=== PATIENT | male | born 1960 | race Caucasian/White ===

== ENCOUNTER 2021-09-28 14:18 | Inpatient (IN) ==
--- NOTE | 2021-09-24 16:04 | Anesthesiology Consultation ---
Date of Service September 24, 2021 Assessment & Plan (1) Encounter for pre-operative examination: Chart Review Chart Review: Acceptable Risk for Surgery (pending preop Covid testing and anesthesia evaluation DOS ) and Patient NOT seen in Pre Admission Testing -Discussed uncontrolled DM and a fib with Dr. Wilson- due to nature of procedure- pt can proceed as scheduled - Check BSG AM DOS Per nursing assessment 09/24/2021, patient resides in [facility]. Wears mask. Admits to local travel only. No known Covid positive exposures or Covid related symptoms. Pt tested Covid positive 07/24/21 at [place]. Pt is fully vaccinated for Covid. Preop Covid testing 09/24/21= results pending Patient seen by PCP 09/21/2021 = seen for preop appointment for upcoming surgery to have great right toe removed. Patient denies any anesthesia issues in the past. Can lie flat without any problems. PCP reviewed recent PRP. Preoperative examination: Stop Eliquis 3 days before surgery. Do not see any contraindications to surgery providing preoperative blood work and EKG are good. Last hemoglobin A1c was elevated at 10.6 but fasting blood sugars have improved since Basaglar has been increased and are now in the 130s. Patient is seeing endocrinology for his diabetes. Paroxysmal A. fibrhythm is regular today. (PCP reviewed labs from 09/08/21- only CBC repeated after PCP appt which was WNL- discussed with Dr. Wilson- pt can proceed as scheduled) Patient seen by cardiology 07/19/2021 = seen for ongoing cardiac issues. Patient diagnosed with atrial fibrillation with rapid ventricular response in July 2021. Patient also plans to have surgery on his great right toe. Has been started on beta-ayde and anticoagulation. Patient currently asymptomatic other than mild exertional fatigue. Continue current medications. We will evaluate further with lab testing and echocardiogram. No contraindications to low risk surgery as planned. No angina, CHF, valvular disease, or decline in functional capacity. Exercise capacity above 5 METS. (Pt still has not had ECHO done - will be following up with cardio in the future- discussed with Dr. Wilson- pt can proceed as scheduled) History Surgery Operation Date: 09/28/21 13:50 Proposed Procedures p Partial Amputation of the Right Big Toe (Fluoro) - Boris Mendosa MD Height/Weight Height: 5 ft 9 in Weight: 79.379 kg Allergies Allergy/AdvReac Type Severity Reaction Status Date / Time Penicillins Allergy Severe THROAT Verified 09/24/21 13:20 SWELLING WITH BLISTERS linezolid Allergy Unknown tongue Verified 09/24/21 13:21 swelling,ITCHY Medications Home Medications Medication Instructions Recorded Confirmed Last Taken empagliflozin 25 mg tablet 25 mg PO QAM 07/31/20 09/24/21 08/02/20 (Jardiance) metformin 500 mg tablet 1,000 mg PO BID 07/31/20 09/24/21 08/02/20 apixaban 5 mg tablet 5 mg PO BID 08/20/21 09/24/21 Unknown fluconazole 100 mg tablet 200 mg PO QAM tab 08/20/21 09/24/21 Unknown insulin glargine 100 unit/mL (3 28 unit SUBCUT QAM ml 08/20/21 09/24/21 Unknown mL) subcutaneous pen (Basaglar KwikPen U-100 Insulin) rosuvastatin 20 mg tablet 20 mg PO DAILY 08/20/21 09/24/21 Unknown daptomycin 500 mg intravenous 750 mg IV QAM 09/16/21 09/24/21 Unknown solution Past Medical History Medical History (Updated 09/24/21 @ 16:03 by Meredith Tillman PA-C) Acid reflux "MILD" Atrial fibrillation On Eliquis Charcot's joint of foot in type 2 diabetes mellitus Diabetes mellitus, type 2 Diabetic peripheral neuropathy associated with type 2 diabetes mellitus Hx of gout Hyperlipidemia Neuropathy RT LEG Osteomyelitis Currently receiving IV antibiotics at home Past Family History Family History Father Family history of diabetes mellitus Father Muscular dystrophy Other No family history of adverse response to anesthesia Past Surgical History Surgical History H/O knee surgery RT/LEFT History of appendectomy History of herniorrhaphy History of nasal cauterization History of tonsillectomy and adenoidectomy S/P foot surgery, right [place] teeth removed Social History Smoking Status: Never smoker tobacco type: smokeless tobacco Do You Dip or Chew Tobacco: Yes (1 CAN PER 2 DAYS) Hx Alcohol Use: No Hx Substance Use: No substance use type: does not use Lab Results Anesthesia Preop Results Results Anesthesia Widget: WBC 10.51 K/uL (4.8-10.8) 09/24/21 Hgb 13.2 g/dL (14.0-18.0) L 09/24/21 Hct 40.7 % (42-52) L 09/24/21 Plt 326 K/uL (130-400) 09/24/21 Na 133 mmol/L (136-145) L 09/08/21 K 4.5 mmol/L (3.5-5.1) 09/08/21 Cl 98 mmol/L (98-107) 09/08/21 CO2 23 mmol/L (21-32) 09/08/21 BUN 31 mg/dl (6-23) H 09/08/21 Creat 1.13 mg/dl (0.6-1.4) 09/08/21 Glucose Level 316 mg/dl (70-99(Fasting)) H* 09/08/21 HA1c 10.6 % (4.5-5.6) H 09/08/21 Testing Electrocardiogram Date: 08/15/21 Findings: + NSR @ (95bpm ) Normal EKG per cardio. Chest X-Ray Date: 08/18/21 1 view CXR Right-sided PICC line noted with the distal tip at the cavoatrial junction. Lung parenchyma is clear. No pneumothorax. No pleural effusion. Other Testing Lower arterial imaging 08/26/2021 = no evidence of significant lower extremity arterial occlusive disease bilaterally.
[~2021-09-28 14:18] MED LIST: ALLERGY Noted to ORDERED Medication SCH; LR 15ML/HR IV SCH
[2021-09-28] MEDS ORDERED: LIDOCAINE 2% 2 ML VIAL/AMP(20MG/ML) INFIL ONE (15:23)
[2021-09-28] MEDS ORDERED: fentaNYL citrate 100 MCG/2 ML VIAL ONE (15:23)
[2021-09-28] MEDS ORDERED: MIDAZOLAM HCL 1 MG/ML 2ML VIAL ONE (15:23)
[2021-09-28] MEDS ORDERED: PROPOFOL IV EMULSION 10 MG/ML 20 ML VIAL IV ONE (15:23)
[2021-09-28] MEDS ORDERED: fentaNYL citrate 100 MCG/2 ML VIAL IV PRN (15:34)
[2021-09-28] MEDS ORDERED: ATROPINE SULFATE 0.1 MG/ML 10ML SYR IV PRN (15:34)
[2021-09-28] MEDS ORDERED: ONDANSETRON INJ 2 MG/ML 2 ML VIAL IV PRN ×2 (15:34→19:19)
[2021-09-28] MEDS ORDERED: ePHEDrine sulfate 50 MG/ML AMP IV PRN (15:34)
[2021-09-28] MEDS ORDERED: ceFAZolin 2,000 MG/15 ML IV PUSH IV ONE (16:07)
--- NOTE | 2021-09-28 16:11 | History & Physical Bridge Note ---
Date of Service September 28, 2021 History & Physical Bridge Note I have examined the patient, reviewed the History & Physical and in the interval since the performance of the History & Physical I have noted the following changes of clinical significance: no changes noted
--- NOTE | 2021-09-28 18:04 | Operative Report ---
Post Operative Report Pre & Post Diagnosis Operation Date: 09/28/21 13:50 Pre-Op Diagnosis: Osteomyelitis unspecified Right Big Toe Post-Op Diagnosis: Osteomyelitis unspecified Right Big Toe I identified the patient and participated in the time-out.: Yes Procedure Operation Date: 09/28/21 13:50 Actual Procedures p Rigth Big Toe Partial Amputation(Right) - Boris Mendosa MD Surgeon Michael Mendosa MD Brush Maker Machine Ras Gabriel MD Estimated Blood Loss 10 Findings Consistent with Post-Op Diagnosis Consistent with post op diagnosis. Specimens No specimens. Description of Procedure I participated in prepping dressing and assisted Dr. Mendosa during the procedure. Please see Dr. Mendosa note. I attest to the content of the Intraoperative Record and any orders documented therein. Any exceptions are noted below. Supervising Physician Co-Signing Physician Notes Dr. Mendosa
--- NOTE | 2021-09-28 18:13 | Operative Report ---
Post Operative Report Pre & Post Diagnosis Operation Date: 09/28/21 13:50 Pre-Op Diagnosis: Osteomyelitis unspecified Right Big Toe Post-Op Diagnosis: Osteomyelitis unspecified Right Big Toe I identified the patient and participated in the time-out.: Yes Procedure Operation Date: 09/28/21 13:50 Actual Procedures p Rigth Big Toe Partial Amputation(Right) - Boris Mendosa MD Surgeon Boris Mendosa MD Geologic Technician Ras Gabriel MD Estimated Blood Loss 10 Findings Consistent with Post-Op Diagnosis Specimens Amputated right big toe Drains None Anesthesia Type General Regional Complications none Disposition Accompanied Patient To Recovery: No Disposition: Recovery Room Indications Trever is 61. He has poorly controlled diabetes. He has had a extensive saga over the last year beginning with the blister on the foot progressing to osteomyelitis of the season wide bones on the right big toe. This been complicated by dorsal dislocation of the toe a and persistent infection resulting in osteomyelitis of the first metatarsophalangeal joint and in particular the first metatarsal head. He has been on IV antibiotics. Inflammatory markers are elevated. He has an abnormal MRI and x-rays consistent with infection. I recommended partial amputation and he is agreed to proceed. Description of Procedure Informed consent obtained. Patient identified. He identified the operative site as the right big toe. I marked with my initials. Preoperative surgical timeout performed. Preop dose of IV antibiotics given. He was taken to the operating room positioned supine on the OR table with a bump under the right hip and a tourniquet on the right thigh. The leg was prescribed and then prepped and draped in usual sterile fashion. The toe was dorsally dislocated. There was a healed plantar wound with no drainage. This was located over the first metatarsophalangeal joint. DVT prophylaxis with mechanical devices. Postoperatively mobility and mechanical devices. He will be started back on his Eliquis. The limb was exsanguinated the Esmarch good bleeding at the midfoot and progressing up to the tourniquet.. Tourniquet inflated 250 mmHg. I made a longitudinal incision down the shaft of the first metatarsal medially and made a ellipsoid incision around the base of the big toe. The skin was sharply incised and then I bluntly dissected down to the level of the flexor and extensor tendons and elevated flaps plantarly and dorsally. Distally I dissected between the joint capsule and the subcutaneous tissues circumferentially. The fluoroscope was used to identify the proposed resection level which was just at the mid portion of the metatarsal. This was marked and exposed. The tendons were amputated at that level and allowed to retract. Nerves were cauterized and allowed to retract within the soft tissues as far proximal as possible as encountered. The bone was osteotomized at this midshaft area. Fluoroscopic guidance was utilized. It was beveled dorsal to plantar and medial to lateral. It was then smoothed with a rasp and rongeur. The remainder of the toe was then resected out of the soft tissue bed and sent for specimen. Tourniquet was let down and meticulous hemostasis was achieved. This was followed by copious irrigation with 1+ liters of sterile saline. On the back table prior to disposal of the toe the joint was opened and there was extensive soft bone of the metatarsal head. I took some bone from metatarsal head for culture and also took a swab culture of the metatarsal head and first metatarsal phalangeal joint. Thus there are 2 cultures 1 for bone and the other for swab culture. The toe was then submitted to specimen. After obtaining a meticulous hemostasis and irrigating we then trimmed the skin flaps as necessary to affect a tension-free button on redundant closure with 3-0 and 4-0 nylon. After this the skin was anesthetized with local anesthetic and then a bulky soft sterile dressing was applied Xeroform 4 x 4's ABD fluffs between the toes Inocencio wrap and a postop shoe. Patient waken from anesthesia without difficulty taken to recovery in stable condition. Specimens were as mentioned above and there were no complications. Counts were correct and blood loss was estimated to be 10 cc. At the conclusion the operation spoke patient's informed of my findings. Postop instructions were given. We will plan on starting his blood thinner tomorrow. Medicine consult. Pharmacy glycemic management consult. Partial weightbearing on the heel. We will continue the IV daptomycin via his PICC line. I think short course of postop IV antibiotics would be reasonable followed by a short course of oral antibiotics. The remainder of the wound bed looks well there is no purulence or abscess noted. There was extensive scarring plantar secondary to old surgery. The muscles were deteriorated and had a very pale salmon flash appearance and consistency. I attest to the content of the Intraoperative Record and any orders documented therein. Any exceptions are noted below.
--- NOTE | 2021-09-28 18:30 | Anesthesiology Progress Note ---
Date of Service September 28, 2021 Anesthesia Post Procedure Vital Signs Vital Signs: Temp Pulse Resp BP Pulse Ox 09/28/21 14:52 98.4 F 91 H 20 121/80 100 Transfer of Care Handoff Completed per policy Notes Mental Status: alert / awake / arousable and participated in evaluation Patient Amnestic to Procedure: Yes Nausea / Vomiting: adequately controlled Pain: adequately controlled Airway Patency, RR, SpO2: stable & adequate BP & HR: stable & adequate Hydration State: stable & adequate Anesthetic Complications: no major complications apparent and Pt Satisfied with anesthetic care
--- NOTE | 2021-09-28 19:15 | Fluoroscopy Report ---
FL toe RT 2V CLINICAL HISTORY: RT BIG TOE AMPUTATION TECHNIQUE: 1 views were obtained with the C-arm in the OR with the above procedure. Total fluoroscopy time was 6.7 seconds. Total skin dose was 0.17 mGy. Comparison: None available at the time of this dictation. FINDINGS/IMPRESSION: Intraoperative images were obtained of right great toe amputation. Please correlate with intraoperative fluoroscopy and operative report. ACT 112: Negative or not required by law. Electronically signed by: Vernon Hinds M.D. 09/28/2021 7:13 PM
[2021-09-28] MEDS ORDERED: TAMSULOSIN HCL 0.4 MG CAP PO PRN (19:19)
[2021-09-28] MEDS ORDERED: HYDROmorphone INJ 0.5 MG/0.5 ML SYR IV PRN (19:19)
[2021-09-28] MEDS ORDERED: NALOXONE HCL 0.4 MG/1 ML VIAL/CARP IV PRN (19:19)
[2021-09-28] MEDS ORDERED: MAGNESIUM HYDROXIDE SUSP 30 ML UDC PO PRN (19:19)
[2021-09-28] MEDS ORDERED: diphenhydrAMINE Capsule 25 MG CAP PO PRN (19:19)
[2021-09-28] MEDS ORDERED: ALUMINUM/MAGNESIUM SUSP 30 ML UDC PO PRN (19:19)
[2021-09-28] MEDS ORDERED: traMADol HCL 50 MG TABLET PO PRN (19:19)
[2021-09-28] MEDS ORDERED: bisacodyL 10 MG SUPP PR PRN (19:19)
[2021-09-28] MEDS ORDERED: PHARMACY GLYCEMIC MGMT CONSULT PRN (19:19)
[2021-09-28] MEDS ORDERED: oxyCODONE HCL IR 5 MG TAB (IMMEDIATE RELEASE) PO PRN (19:19)
[2021-09-28] MEDS ORDERED: METOCLOPRAMIDE HCL INJ 5 MG/ML 2 ML VIAL IV PRN (19:19)
[2021-09-28] MEDS: SODIUM CHLORIDE 0.9% 1000ML 1,000 ML IV SCH (19:34)
[2021-09-28] MEDS ORDERED: DAPTOmycin 425 MG in SYRINGE 0 ML IV SCH (20:00)
[2021-09-28] MEDS ORDERED: DEXTROSE 50% 50 ML SYRINGE IV PRN (20:30)
[2021-09-28] MEDS ORDERED: GLUCAGON FOR INJ 1 MG VIAL IM PRN (20:30)
[2021-09-28] MEDS ORDERED: CARBOHYDRATES FOR HYPOGLYCEMIA PO PRN (20:30)
[2021-09-28] MEDS ORDERED: GLUCOSE 10 TABS/TUBE PO PRN (20:30)
[2021-09-28] MEDS ORDERED: GLUCOSE 40% GEL 15 GM TUBE PO PRN (20:30)
[2021-09-28] MEDS: DOCUSATE SODIUM 100 MG CAP PO SCH (22:00)
[2021-09-28] MEDS: SENNA 8.6 MG TAB PO SCH (22:00)
[2021-09-28] MEDS: INSULIN ASPART PER UNIT SC SCH (22:16)
[2021-09-28] MEDS: ACETAMINOPHEN 500 MG TAB PO PRN (22:22)
--- NOTE | 2021-09-28 23:29 | Hospitalist Consultation ---
Date of Consultation September 28, 2021 Assessment & Plan (1) Osteomyelitis: This is a very pleasant 61-year-old gentleman with a notable history of type 2 diabetes complicated by peripheral neuropathy and Charcot's foot and diabetic retinopathy, hyperlipidemia, paroxysmal atrial fibrillation on apixaban who presented to [facility] for planned partial amputation of the right great toe because of osteomyelitis. This was performed 09/28/[address] Mendosa of [facility] Orth[facility]. Medicine was consulted for aid in medical management, including his atrial fibrillation monitoring, diabetes management, blood pressure management. # Osteomyelitis of R Great Toe s/p Partial Amputation on 09/28 - Orthopedic notes, including those scanned, reviewed; seems there has been progression of his disease despite ongoing ABX --> Patient developed rash with vancomycin - Culture: In note from [facility], reported that cultures taken in 07/2021 were revealing of Enterococcus and coagulase-negative Staph ; do not have sensitivities available in our system at this time --> Await cultures from procedure 09/28 - ABx: Continue daptomycin as per orthopedic service (for total of at least 6 weeks since initiation -- may require adjustment pending cultures above) - Pain: Tramadol, oxycodone, hydromorphone -- per orthopedic service - Lower extremity arterial CHADD/TBIs performed 08/2021 (see scan to chart) - revealing normalcy without evidence of significant occlusive disease (2) Diabetes: # Type 2 Diabetes Mellitus, Poorly Controlled - Home RX (HOLD): metformin 1000mg b.i.d., Jardiance 25mg PO qAM, insulin glargine 31U qAM - Last A1c: 10.6% in 09/2021 - Current SSI: 1:20, CR 1:7 w/ ACHS BSG checks -- agree for initial regimen based on most recent A1c - Initiate Lantus 20U qAM (patient takes ~30U qAM at home - will give 2/3, increase p.r.n.) - Goal range 110-140 - On night of initial visit, unable to have meaningful discussion about eating habits, medication compliance, etc. that might influence control of his diabetes and persistently high A1c (seen after midnight). Further clarification of this will be required throughout his stay here to ensure his continued success. Consider nurse research consultation pending further discussions during the day. - Monitor electrolytes with ongoing insulin therapy - Monitor for SXS of UTI with Jardiance (3) Mixed hyperlipidemia: # HLD - Continue rosuvastatin (4) Paroxysmal atrial fibrillation: # Paroxysmal AFib - Based on history, previous episodes of AFib seem to be precipitated by physiologically stressful events - e.g., sepsis - Patient is presently with regular rhythm and high-normal rates post- operatively on exam - ECG as needed or if persistently high rates - Patient self-discontinued metoprolol within the last few weeks (per his report). He would likely benefit from a low dose, such as succinate 25mg daily, if tolerated. Will require further exploration in AM. - Resume Apixaban when cleared by orthopedic surgery - Maintain K > 4, Mg > 2 (5) Essential hypertension: - Not on any antihypertensives at this time ; he self-discontinued only agent that may contribute, metoprolol - Following recovery from surgery, would consider addition of ACEI/ARB given his T2DM and risk for nephropathy Thank you for this consult. Will continue to follow. Supervising Physician Co-Signing Physician Notes Attending addendum: I have supervised the medical residents activities, and agree with the H&P unless as otherwise noted. Assessment and Plan: Osteomyelitis/status post right great toe partial amputation- Previous cultures with Enterococcus and coag negative staph Follow sensitivities from bone biopsy Continue daptomycin as per orthopedic service Pain control per orthopedic service Diabetes mellitus- Holding metformin, Jardiance and glargine 31 units Sliding scale insulin as noted Resume glargine at 20 units subcu every morning Remaining orders and notations as noted Will follow along during hospital stay History of Present Illness Attending Physician: Boris Mendosa MD History of Present Illness This is a 61-year-old gentleman with a notable history of type 2 diabetes complicated by peripheral neuropathy and Charcot's foot and diabetic retinopathy, hyperlipidemia, hyperlipidemia, atrial fibrillation on apixaban who presented to [facility] for planned partial amputation of the right great toe because of osteomyelitis. This was performed 09/28/[address] Mendosa of [facility] Orth[facility]. Medicine was consulted for aid in medical management, including his atrial fibrillation monitoring, diabetes management, blood pressure management. Patient's history and physical scans into the chart were reviewed. Also discussed with patient. Patient has an extensive history of [id number] diabetes. Last year (around November 2020), he did develop a R foot infection that transpired into sepsis that required hospitalization. During his hospitalization, he did develop A. fib. He has no history of A. fib prior to this. He was started on metoprolol and apixban. Unfortunately, recovery from his left foot infection was complicated by another episode of atrial fibrillation that required cardioversion. He also had reinfection that required hospitalization for sepsis in August 2020 at [facility]; he initially was on an oral antibiotic (which he does not remember) that caused his tongue to swell; he was then arranged with a PICC with vancomycin, but unfortunately developed itching with this. At present, he has been on IV daptomycin. The exact length of time has been since "August," but he is unable to tell me how many weeks -- he has still been on them through admission. MRI performed in early September demonstrated dislocation of the first metatarsal p halangeal joint with associated cellulitis, effusion, and findings consistent with osteomyelitis. Culture obtained in July 2021 was positive for Enterococcus and coagulase-negative staph. With his Orthopedist, jointly plan to pursue partial toe amputation. Allergies Allergy/AdvReac Type Severity Reaction Status Date / Time Penicillins Allergy Severe THROAT Verified 09/28/21 14:48 SWELLING WITH BLISTERS linezolid Allergy Unknown tongue Verified 09/28/21 14:48 swelling,ITCHY Home Medications Medication Instructions Recorded Confirmed Type empagliflozin 25 mg tablet 25 mg PO QAM 07/31/20 09/28/21 History (Jardiance) metformin 500 mg tablet 1,000 mg PO BID 07/31/20 09/28/21 History apixaban 5 mg tablet 5 mg PO BID 08/20/21 09/28/21 History fluconazole 100 mg tablet 200 mg PO QAM tab 08/20/21 09/28/21 History (Diflucan) insulin glargine 100 unit/mL (3 28 unit SUBCUT QAM ml 08/20/21 09/28/21 History mL) subcutaneous pen (Basaglar KwikPen U-100 Insulin) rosuvastatin 20 mg tablet 20 mg PO DAILY 08/20/21 09/28/21 History daptomycin 500 mg intravenous 750 mg IV QAM 09/16/21 09/28/21 History solution Patient History Medical History Acid reflux "MILD" Atrial fibrillation On Eliquis Charcot's joint of foot in type 2 diabetes mellitus Diabetes mellitus, type 2 Diabetic peripheral neuropathy associated with type 2 diabetes mellitus Hx of gout Hyperlipidemia Neuropathy RT LEG Osteomyelitis Currently receiving IV antibiotics at home Surgical History H/O knee surgery RT/LEFT History of appendectomy History of herniorrhaphy History of nasal cauterization History of tonsillectomy and adenoidectomy S/P foot surgery, right [place] teeth removed Family History Father Family history of diabetes mellitus Father Muscular dystrophy Other No family history of adverse response to anesthesia Social History Smoking Status: Never smoker Tobacco Type: Smokeless Tobacco (Dip or Chew) Age Started Using Tobacco: 12; Age Quit Using Tobacco: 47; Second Hand Exposure: No; Do You Dip or Chew Tobacco: Yes (1 CAN PER 2 DAYS); Tobacco Cessation Education Requested by Patient: No Hx Alcohol Use: No Hx Substance Use: No Preferred Language: Marshallese Communication Ability: Effective Visual Impairment: Limited Hearing Ability: Hard of Hearing Docking Pilot Required: No Beliefs That Will Affect Care: None marital status: Current Living Situation: Spouse Current Living Situation Comment: 2 story home with current occupational status: retired and disabled How many Children do You have: 3 How many Children do You have Comment: works, able to assist a little. Pt independent with care at this time. Other Information That Helps Us Care for You: No Feels Safe at Home: Yes Safety Concerns: Feels Safe At This Time during the past year weight has: remained stable Assistive Devices: Special Shoe Assistive Devices Comment: WRAPPED DRESSING/BOOT RIGHT FOOT Review of Systems Review of Systems: as per HPI Physical Exam Physical Exam: General: Well appearing 61-year old M who is alert, oriented, and appears in no acute distress. HEENT: NCAT. - Eyes - Sclera are white, anicteric, and without injection. - Mouth - MMM with no tonsillar edema or exudates. - Neck - supple without JVD. Cardiac: High-normal rate with regular rhythm; S1 and S2 present with no murmurs, rubs, or gallops. Pulmonary: Good respiratory effort with symmetric expansion of the chest. No use of accessory muscles. Lungs were clear to auscultation bilaterally with no crackles or wheezes. Abdominal: Normoactive bowel sounds. Abdomen was soft, nondistended, and non- tender to palpation. Extremities: Upper and lower extremities are warm and well perfused. RLE is wrapped and in a post-operative boot. The dressing is c/d/i. Patient demonstrates good motor function of the toes on this side. Results & Data Results & Data ([facility]) Vital Signs (Past 12 Hours) Vital Signs Temp Pulse Pulse Resp BP Pulse Ox 09/28/21 22:10 36.4 C L 104 H 18 145/83 H 97 09/28/21 21:08 36.4 C L 103 H 18 156/87 H 98 09/28/21 20:05 36.3 C L 103 H 20 168/90 H 99 09/28/21 19:35 36.7 C 95 H 18 147/88 H 99 09/28/21 18:45 36.5 C 87 20 129/70 97 09/28/21 18:35 87 14 125/73 97 09/28/21 18:25 86 14 125/77 97 09/28/21 18:15 90 12 128/79 96 09/28/21 18:05 36.9 C 87 14 120/73 97 09/28/21 14:52 36.9 C 91 H 20 121/80 100 Resident Activity Tracking Resident Involvement: Resident Care Provided Care Provided: Adult Hospital Medicine
[2021-09-29] MEDS: INSULIN ASPART PER UNIT SC SCH ×7 (01:34→21:14)
[2021-09-29] MEDS: SODIUM CHLORIDE 0.9% 1000ML 1,000 ML IV SCH (06:14)
[2021-09-29 06:48] LABS: BUN Creatinine Ratio 25.3 (10-20); Calcium 9.3 mg/dl (8.5-10.1); Creatinine Clr Calc Pharmacy 81.7 ml/min; Est GFR (African American) 99.7 ml/min; Est GFR (Non-African American) 86.1 ml/min; Magnesium 2.1 mg/dl (1.7-2.4); Potassium 4.1 mmol/L (3.5-5.1)
[2021-09-29] MEDS: FLUCONAZOLE 100 MG TAB PO SCH (08:03)
[2021-09-29] MEDS: MULTIVITAMIN TAB PO SCH (08:03)
[2021-09-29] MEDS: DOCUSATE SODIUM 100 MG CAP PO SCH ×2 (08:03→20:37)
[2021-09-29 08:15] LABS: Hematocrit (blood only) 37.3 % (42-52); Hemoglobin 12.2 g/dL (14.0-18.0); Mean Corpuscular Hemoglobin 26.7 pg (25-34); Mean Corpuscular Hgb Conc 32.7 g/dL (32-36); Mean Corpuscular Volume 81.6 fL (80-100); Mean Platelet Volume 10.6 fL (7.4-10.4); Platelet Count 277 K/uL (130-400); RDW Coefficient of Variation 15.4 % (11.5-14.5); RDW Standard Deviation 45.4 fL (36.4-46.3); Red Blood Count 4.57 M/uL (4.7-6.1); White Blood Count 9.76 K/uL (4.8-10.8)
[2021-09-29] MEDS ORDERED: ROSUVASTATIN CALCIUM 20 MG TAB PO SCH (09:00)
[2021-09-29] MEDS ORDERED: INSULIN GLARGINE SOLOSTAR 100 UNITS/ML 3 ML PEN SC SCH (09:00)
[2021-09-29] MEDS ORDERED: DAPTOmycin 500 MG VIAL IV SCH (09:00)
[2021-09-29] MEDS: DAPTOmycin 700 MG in SYRINGE 0 ML IV SCH (10:34)
--- NOTE | 2021-09-29 12:33 | Hospitalist Progress Note ---
Date of Service September 29, 2021 Assessment & Plan (1) Amputation of great toe: Plan: S/p amputation of the right hallux done 09/28 (Dr. Mendosa) for progressive osteomyelitis failing IV antibiotics No perioperative complications Recommend DVT prophylaxis, adequate postoperative pain management, PT/OT and weightbearing restrictions at discretion of primary team -- Patient takes Eliquis routinely. Once okay to resume per surgery, this would provide adequate DVT prophylaxis (2) Osteomyelitis: Plan: Ongoing osteomyelitis of the right great toe Completed 14 days of linezolid followed by IV antibiotics (first vancomycin then later transitioned to IV daptomycin) Prior wound culture showed Enterobacter, heavy growth of yeast, and coag negative staph species Has been following infectious disease as an outpatient. PICC line in place Discussed with Dr. Burris and all infected toe has been amputated. No joint space or tendon involvement seen on MRI At this point, no need for continued IV antibiotics. Can transition to oral. Would advise 2 weeks of treatment (to conclude 10/13) For now, continue empiric antibiotic therapy until culture data available. Prior culture data from 08/24. Bone sample sent for analysis and pending Continue daptomycin. Add cefepime given his underlying history of diabetes mellitus and risk for pseudomonal infection Add Diflucan given recent history of heavy growth of yeast and wound culture If bone culture comes back showing no growth, would advise treating based on prior culture data (for Enterobacter, coag negative staph and yeast). Appropriate treatment would be linezolid and Diflucan (3) Paroxysmal atrial fibrillation: Plan: Currently examines in a sinus rhythm Was on metoprolol in the past but self discontinued as "did not need it" Lengthy discussion with patient and risk of paroxysmal atrial fibrillation. Heart rate currently 91 and blood pressure elevated. Would benefit from addition of beta-blockade. After lengthy discussion, patient agreeable We will start metoprolol XL 25 mg daily--would continue upon discharge Resume Eliquis once stable to do so from surgical perspective (4) Diabetes: Plan: Last A1c elevated at 10.6 (done 09/08/2021) Currently on Lantus/logpharmacy managing. Appreciate assistance Lengthy discussion with patient regarding the importance of good glycemic control (5) Essential hypertension: Plan: Was on lisinopril in the past but self discontinued this medication. BP currently accelerated at 150s/90s As stated above, also self discontinued metoprolol. Would benefit from beta- blockade at this point thus metoprolol initiated Patient very reluctant to addition of any added antihypertensive agents but would benefit from lisinopril for nephro protection. Can discuss this with PCP Plan: For now, continue empiric antibiotics (cefepime, daptomycin) along with antifungals (Diflucan) based on prior culture data Bone culture pending Patient will need 2 weeks of oral antibiotics. If culture data negative, linezolid and oral Diflucan would be appropriate (last EKG shows normal prolonged QT interval) We will continue to follow along with this patient. Discussion will be had with attending provider. Did discuss with primary team. Thank you for allowing us to participate in this patient's care. Admission and Anticipated Discharge Date Admission Date: September 28, 2021 Subjective Patient seen on daily rounds today. Vocalizes no complaints or concerns. Denies fevers, chills, chest pain, shortness of breath, abdominal pain, nausea or vomiting. His only request today is additional boost supplement with meals as he was told "he needs additional protein to help his wound heal". Patient is a 61-year-old white male with type II DM who sustained amputation of the right great toe on 09/28 for osteomyelitis Hospitalized 07/27 at [facility] for osteomyelitis. MRI then showing early osteomyelitis of the hallux and sesamoid bones without tendon involvement. Seen by podiatry and had sesamoidectomy. Wound culture showed Enterobacter, heavy growth of yeast and coag negative staph. Seen by ID and recommendations were for linezolid orally X 14 days. Subsequently discharged home but has had recurrent cellulitis and poor wound healing. 08/24 readmitted where he was found to have progressive osteomyelitis now involving the first proximal phalanx and first metatarsal. Culture at that time showed Enterococcus, heavy yeast, and coag negative staph species. Seen by infectious disease and completed oral Diflucan, with plan to continue IV vancomycin X 6 weeks. Has been following up with our wound clinic for nonhealing wound. In the interim, vancomycin was transitioned to daptomycin as instructed by [facility] (which patient was following as an outpatient). Had repeat MRI on 09/09 showing progressive osteo for which patient was referred to orthopedics for amputation. Is s/p amputation of right hallux done 09/28. No intraoperative/perioperative complications. Per orthopedics (directly spoke to Dr. Mendosa) and all infected bone has since been removed Review of Systems Review of Systems: All systems reviewed and are unremarkable except as noted in HPI and below Denies fevers, chills, headache, nasal congestion, sore throat, cough, chest pain, shortness of breath, palpitations, orthopnea, PND, abdominal pain, nausea, vomiting, diarrhea, constipation, dysuria, hematuria, frequency, back pain, join t pain or swelling, easy bruising or bleeding, skin lesions or rashes. Physical Exam Physical Exam: General: Resting comfortably in his hospital bed. NAD. HEENT: Head is AT/NC. Buccal mucosa is moist and pink Neck: No JVD. Negative hepatojugular reflex Cardiac: RRR without M/G/R Lungs: CTA without W/R/R Abdomen: Normoactive X4. Soft and nontender in all quadrants. Extremities: Right lower extremity in a postsurgical boot. Capillary refill to toes intact. Able to palpate dorsalis pedis pulse and is bounding Neuro: A&O X4. Cranial nerves II through XII are grossly intact. No focal neuro deficits Skin: No obvious skin lesions or rashes Psych: Appropriate affect. Pleasant and cooperative Results & Data Results & Data ([facility]) Vital Signs (Past 12 Hours) Vital Signs Temp Pulse Resp BP Pulse Ox 09/29/21 10:42 36.6 C 91 H 16 151/82 H 97 09/29/21 07:05 36.5 C 91 H 16 146/75 H 98 09/29/21 02:11 36.6 C 90 16 102/63 97 Laboratory Results 09/29/21 05:34 09/29/21 05:34 PG Care Time/CCT Total # of Minutes Spent Total Time Spent with Patient: Total time spent is greater than 50% in coordination of care (as documented) at patient's floor/unit and/or counseling patient: Coding Level of Care Code 36127 Inpt Consult Level 5 Diagnoses Amputation of great toe S98.119A Osteomyelitis M86.9 Paroxysmal atrial fibrillation I48.0 Diabetes E11.9 Essential hypertension I10
[2021-09-29] MEDS ORDERED: FLUCONAZOLE 100 MG TAB PO SCH (12:45)
[2021-09-29] MEDS: CEFEPIME 2,000 MG in SYRINGE 0 ML IV SCH ×2 (13:31→22:16)
--- NOTE | 2021-09-29 13:48 | Orthopedic Progress Note ---
Date of Service September 29, 2021 Assessment & Plan (1) Amputation of great toe: Plan: Keep the dressing and the post OP shoe clean, dry and in place. elevate the leg. Continue broad spectrum antibiotic until the culture results will be ready. Dilaudid PRN for pain control. Discharge possible tomorrow. Admission and Anticipated Discharge Date Admission Date: September 28, 2021 Subjective POD 1: Patient feels fine, pain is under control. He is keeping the leg elevated with two pillows. Physical Exam Musculoskeletal: Right foot: Dressing in place, clean and dry, diffuse numbness in all toes comparable with the pre OP sensation. Strength 5/5. Results & Data ([facility]) Vital Signs (Past 12 Hours) Vital Signs Temp Pulse Resp BP Pulse Ox 09/29/21 10:42 36.6 C 91 H 16 151/82 H 97 09/29/21 07:05 36.5 C 91 H 16 146/75 H 98 09/29/21 02:11 36.6 C 90 16 102/63 97 Laboratory Results 09/29/21 09/29/21 09/29/21 12:43 11:48 07:44 WBC RBC Hgb Hct MCV MCH MCHC RDW Std Deviation RDW Coeff of Adriana Plt Count MPV ESR 31 H Sodium Potassium Chloride Carbon Dioxide Anion Gap BUN Creatinine Est Cr Clr Drug Dosing Est GFR ( Amer) Est GFR (Non-Af Amer) BUN/Creatinine Ratio Glucose POC Glucose 232 H 163 H Calcium Magnesium SARS-CoV-2, RNA, NAAT 09/29/21 09/29/21 09/29/21 05:34 05:34 03:45 WBC 9.76 RBC 4.57 L Hgb 12.2 L Hct 37.3 L MCV 81.6 MCH 26.7 MCHC 32.7 RDW Std Deviation 45.4 RDW Coeff of Adriana 15.4 H Plt Count 277 MPV 10.6 H ESR Sodium 137 Potassium 4.1 Chloride 104 Carbon Dioxide 23 Anion Gap 10 BUN 24 H Creatinine 0.95 Est Cr Clr Drug Dosing 81.7 Est GFR ( Amer) 99.7 Est GFR (Non-Af Amer) 86.1 BUN/Creatinine Ratio 25.3 H Glucose 130 H POC Glucose 172 H Calcium 9.3 Magnesium 2.1 SARS-CoV-2, RNA, NAAT 09/29/21 09/28/21 09/28/21 01:28 22:07 22:04 WBC RBC Hgb Hct MCV MCH MCHC RDW Std Deviation RDW Coeff of Adriana Plt Count MPV ESR Sodium Potassium Chloride Carbon Dioxide Anion Gap BUN Creatinine Est Cr Clr Drug Dosing Est GFR ( Amer) Est GFR (Non-Af Amer) BUN/Creatinine Ratio Glucose POC Glucose 230 H 341 H* 329 H* Calcium Magnesium SARS-CoV-2, RNA, NAAT 09/28/21 09/28/21 09/28/21 18:09 14:43 14:35 WBC RBC Hgb Hct MCV MCH MCHC RDW Std Deviation RDW Coeff of Adriana Plt Count MPV ESR Sodium Potassium Chloride Carbon Dioxide Anion Gap BUN Creatinine Est Cr Clr Drug Dosing Est GFR ( Amer) Est GFR (Non-Af Amer) BUN/Creatinine Ratio Glucose POC Glucose 168 H 209 H Calcium Magnesium SARS-CoV-2, RNA, NAAT NEGATIVE
--- NOTE | 2021-09-29 14:31 | Pharmacy Report ---
Pharmacy Glycemic Short Note 2 - Date of Service September 29, 2021 - Glycemic Short BSG Results (Last 24 hours): 09/28/21 09/28/21 09/28/21 14:43 18:09 22:04 Glucose POC Glucose 209 H 168 H 329 H* 09/28/21 09/29/21 09/29/21 22:07 01:28 03:45 Glucose POC Glucose 341 H* 230 H 172 H 09/29/21 09/29/21 09/29/21 05:34 07:44 11:48 Glucose 130 H POC Glucose 163 H 232 H OUTPATIENT ANTIDIABETIC REGIMEN: * Lantus 28 units daily * Jardiance * metformin ASSESSMENT: * Mr Phipps is a 61 y/o M with a PMH of T2DM who presents for toe amputation. * BSGs yesterday were 168-341 and overnight were 172 - 163 mg/dL. * Patient took 14 units of Lantus prior to surgery. He received an additional 7 units overnight. * Will start with Lantus 20 units today then have titration available for tomorrow. * Novolog weight-based stress of 3. Lunch BSG was elevated so tighten CR significantly. PLAN FOR INPATIENT GLYCEMIC CONTROL: * Hold outpatient oral diabetes medications * Basal insulin * Lantus 20 units SQ daily (25 units if BSG > 140 mg/dL) * Bolus insulin * NovoLog per scale ACHS or Q6hrs while NPO * Goal Range: Low 110 mg/dL - High 140 mg/dL * Correction Factor: 20 mg/dL/unit * Nutritional / Prandial insulin per carb ratio of 1 unit per 5 grams CHO consumed
[2021-09-29] MEDS: ACETAMINOPHEN 500 MG TAB PO PRN (16:20)
[2021-09-29] MEDS: METOPROLOL SUCC 25MG EXT REL TAB PO SCH (16:21)
[2021-09-29] MEDS: APIXABAN 5 MG TABLET PO SCH (18:05)
--- NOTE | 2021-09-29 18:59 | Progress Notes ---
DATE OF SERVICE: 09/29/2021. No problems reported. Pain is well controlled. The patient is resting comfortably in bed. He is af ebrile. His vital signs are stable. His labs are noted. White count 10, hemoglobin 12, hematocrit 3 7, platelets are 277. Sed rate 31. CRP 0.71. Path pending. Cultures no growth to date. Dressing clean, dry and intact. Capillary refill intact with the remaining toes and he can wiggle them. He i s currently on daptomycin, cefepime and Diflucan. We will start his Eliquis tonight. We will consid er dressing change tomorrow. We will continue IV antibiotics until we get some culture results. Disc ussed treatment plan with medicine via [employer]. Job ID: [id number]
[2021-09-29] MEDS: SENNA 8.6 MG TAB PO SCH (20:37)
--- NOTE | 2021-09-29 21:36 | Billing Data ---
Date of Service September 29, 2021 Coding Level of Care Code 62732 Inpt Consult Level 3
[2021-09-30] MEDS: CEFEPIME 2,000 MG in SYRINGE 0 ML IV SCH ×3 (05:46→21:53)
[2021-09-30 06:15] LABS: Basophils # (auto) 0.04 K/uL (0-0.2); Basophils % (auto) 0.5 %; Eosinophils # (auto) 0.14 K/uL (0-0.5); Eosinophils % (auto) 1.7 %; Hematocrit (blood only) 36.7 % (42-52); Hemoglobin 12.2 g/dL (14.0-18.0); Immature Granulocytes # (auto) 0.01 K/uL (0.00-0.02); Immature Granulocytes % (auto) 0.1 %; Lymphocytes # (auto) 1.92 K/uL (1.2-3.4); Lymphocytes % (auto) 23.2 %; Mean Corpuscular Hemoglobin 27.1 pg (25-34); Mean Corpuscular Hgb Conc 33.2 g/dL (32-36); Mean Corpuscular Volume 81.4 fL (80-100); Mean Platelet Volume 10.8 fL (7.4-10.4); Monocytes # (auto) 0.79 K/uL (0.11-0.59); Monocytes % (auto) 9.6 %; Neutrophils # (auto) 5.37 K/uL (1.4-6.5); Neutrophils % (auto) 64.9 %; Platelet Count 263 K/uL (130-400); RDW Coefficient of Variation 15.3 % (11.5-14.5); RDW Standard Deviation 45.2 fL (36.4-46.3); Red Blood Count 4.51 M/uL (4.7-6.1); White Blood Count 8.27 K/uL (4.8-10.8)
[2021-09-30 06:49] LABS: BUN Creatinine Ratio 24.2 (10-20); Calcium 9.3 mg/dl (8.5-10.1); Creatinine Clr Calc Pharmacy 81.7 ml/min; Est GFR (African American) 99.7 ml/min; Est GFR (Non-African American) 86.1 ml/min; Magnesium 2.1 mg/dl (1.7-2.4); Potassium 4.1 mmol/L (3.5-5.1)
[2021-09-30] MEDS: FLUCONAZOLE 100 MG TAB PO SCH (07:50)
[2021-09-30] MEDS: METOPROLOL SUCC 25MG EXT REL TAB PO SCH (07:50)
[2021-09-30] MEDS: APIXABAN 5 MG TABLET PO SCH ×2 (07:50→21:00)
[2021-09-30] MEDS: MULTIVITAMIN TAB PO SCH (07:51)
[2021-09-30] MEDS: DOCUSATE SODIUM 100 MG CAP PO SCH ×2 (07:51→21:00)
[2021-09-30] MEDS: INSULIN ASPART PER UNIT SC SCH ×4 (08:53→21:01)
[2021-09-30] MEDS: INSULIN GLARGINE SOLOSTAR 100 UNITS/ML 3 ML PEN SC SCH (08:55)
[2021-09-30] MEDS: DAPTOmycin 700 MG in SYRINGE 0 ML IV SCH (08:55)
--- NOTE | 2021-09-30 12:39 | Pharmacy Report ---
Pharmacy Glycemic Short Note 2 - Date of Service September 30, 2021 - Glycemic Short BSG Results (Last 24 hours): 09/29/21 09/29/21 09/30/21 16:46 20:54 05:10 Glucose 208 H POC Glucose 174 H 259 H 09/30/21 09/30/21 08:02 12:03 Glucose POC Glucose 235 H 226 H OUTPATIENT ANTIDIABETIC REGIMEN: * Lantus 28 units daily * Jardiance * metformin ASSESSMENT: 09/30/21: * Andre received 72 units of insulin yesterday with poor glycemic control * 20 units Lantus, 52 units Novolog * BSGs: 130, 163, 232, 174, 259 mg/dL * Patient tolerates 28 units of basal insulin at home. I will resume this dose this morning and add a small scale at bedtime until fasting BSG is better controlled. * Post prandial BSGs remain elevated despite tightening carb coverage- will further tighten today. I suspect basal deficiency is playing a role in this elevation. 09/29/21: * Mr Phipps is a 61 y/o M with a PMH of T2DM who presents for toe amputation. * BSGs yesterday were 168-341 and overnight were 172 - 163 mg/dL. * Patient took 14 units of Lantus prior to surgery. He received an additional 7 units overnight. * Will start with Lantus 20 units today then have titration available for tomorrow. * Novolog weight-based stress of 3. Lunch BSG was elevated so tighten CR significantly. PLAN FOR INPATIENT GLYCEMIC CONTROL: * Hold outpatient oral diabetes medications * Basal insulin * Lantus 28 units SQ qAM * Lantus 0-5 units SQ tonight (5 units for BSG 160 mg/dL or more) * Bolus insulin * NovoLog per scale ACHS or Q6hrs while NPO * Goal Range: Low 110 mg/dL - High 140 mg/dL * Correction Factor: 15 mg/dL/unit * Nutritional / Prandial insulin per carb ratio of 1 unit per 4 grams CHO consumed
--- NOTE | 2021-09-30 15:57 | Hospitalist Progress Note ---
Date of Service September 30, 2021 Assessment & Plan (1) Osteomyelitis: Plan: S/p amputation of the right hallux done 09/28 (Dr. Mendosa) for progressive osteomyelitis failing IV antibiotics No perioperative complications Recommend DVT prophylaxis, adequate postoperative pain management, PT/OT and weightbearing restrictions at discretion of primary team * Patient takes Eliquis routinely. Once okay to resume per surgery, this would provide adequate DVT prophylaxis, appears ortho said acceptable to resume on 09/29 Completed 14 days of linezolid followed by IV antibiotics (first vancomycin then later transitioned to IV daptomycin) Prior wound culture showed Enterobacter, heavy growth of yeast, and coag negative staph species Has been following infectious disease as an outpatient. PICC line in place Discussed with Dr. Burris and all infected toe has been amputated. No joint space or tendon involvement seen on MRI At this point, no need for continued IV antibiotics. Can transition to oral. Would advise 2 weeks of treatment (to conclude 10/13) For now, continue empiric antibiotic therapy until culture data available. Prior culture data from 08/24. Bone sample sent for analysis and pending Continue daptomycin. Add cefepime given his underlying history of diabetes mellitus and risk for pseudomonal infection Add Diflucan given recent history of heavy growth of yeast and wound culture If bone culture comes back showing no growth, would advise treating based on prior culture data (for Enterobacter, coag negative staph and yeast). At this time, NGTD, but pinpoint growth noted and is reincubating.Appropriate treatment would be oral linezolid and Diflucan (2) Paroxysmal atrial fibrillation: Plan: Currently examines in a sinus rhythm Was on metoprolol in the past but self discontinued as "did not need it" Lengthy discussion with patient and risk of paroxysmal atrial fibrillation. Heart rate currently 91 and blood pressure elevated. Would benefit from addition of beta-blockade. After lengthy discussion, patient agreeable Resumed Eliquis on 09/29 Started on metoprolol XL 25 mg daily (tolerating well) - would continue upon discharge (3) Diabetes: Plan: Home RX (HOLD): metformin 1000mg b.i.d., Jardiance 25mg PO qAM, insulin glargine 31U qAM Last A1c elevated at 10.6 (done 09/08/2021) Currently on Lantus/logpharmacy managing. Appreciate assistance Lengthy discussion with patient regarding the importance of good glycemic control (4) Essential hypertension: Plan: Was on lisinopril in the past but self discontinued this medication. BP currently accelerated at 150s/90s As stated above, also self discontinued metoprolol. Would benefit from beta- blockade at this point thus metoprolol initiated Patient very reluctant to addition of any added antihypertensive agents but would benefit from lisinopril for nephro protection. Can discuss this with PCP (5) Mixed hyperlipidemia: Plan: Continue rosuvastatin Plan: No further recommendations at this time other than as outlined above. Will continue to follow along while hospitalized. Plan to be d/w Dr. Dunaway. Admission and Anticipated Discharge Date Admission Date: September 28, 2021 Subjective Patient was seen on rounds this morning. He is resting comfortably in bed, offers no new complaints/concerns. Pain is adequately controlled. Denies cp, palpitations, dyspnea, n/v/d, f/c, headache, or gu symptoms. Review of Systems Review of Systems: All systems reviewed and are unremarkable except as noted in HPI and below Denies fevers, chills, headache, nasal congestion, sore throat, cough, chest pain, shortness of breath, palpitations, orthopnea, PND, abdominal pain, nausea, vomiting, diarrhea, constipation, dysuria, hematuria, frequency, back pain, joint pain or swelling, easy bruising or bleeding, skin lesions or rashes. Physical Exam Physical Exam: GENERAL: 61 yo well-developed, well-nourished WM. NAD. LUNGS: Clear to auscultation bilaterally. No accessory muscle use. No W/R/R. CARDIOVASCULAR: Regular rate and rhythm. ABDOMEN: Soft, non-tender and non-distended. BS normoactive x 4 quad. EXTREMITIES: RLE Surgical dressing present, wrapped in josé miguel. Cap refill in toes <2 sec. DP pulse +2/4 NEUROLOGIC: A&O x3. PSYCHIATRIC: Cooperative. Appropriate mood and affect. SKIN: Warm, dry, intact. No rashes or lesions. Results & Data Results & Data ([facility]) Vital Signs (Past 12 Hours) Vital Signs Temp Pulse Resp BP Pulse Ox 09/30/21 14:08 36.6 C 88 16 141/80 H 97 04/28/22 07:53 36.7 C 85 16 134/84 97 Laboratory Results 09/30/21 05:10 09/30/21 05:10 PG Care Time/CCT Total # of Minutes Spent Total Time Spent with Patient: Total time spent is greater than 50% in coordination of care (as documented) at patient's floor/unit and/or counseling patient: Coding Level of Care Code 89686 Subseq Hosp Care Lvl 2 Diagnoses Osteomyelitis M86.9 Diabetes E11.9 Mixed hyperlipidemia E78.2 Paroxysmal atrial fibrillation I48.0 Essential hypertension I10
[2021-09-30] MEDS: ACETAMINOPHEN 500 MG TAB PO PRN (16:31)
--- NOTE | 2021-09-30 16:44 | Orthopedic Progress Note ---
Date of Service September 30, 2021 Assessment & Plan Admission and Anticipated Discharge Date Admission Date: September 28, 2021 Subjective Results & Data ([facility]) Vital Signs (Past 12 Hours) Vital Signs Temp Pulse Resp BP Pulse Ox 09/30/21 14:08 36.6 C 88 16 141/80 H 97 09/30/21 07:53 36.7 C 85 16 134/84 97
--- NOTE | 2021-09-30 16:54 | Progress Notes ---
DATE OF SERVICE: 09/30/2021 Resting comfortably in bed. Afebrile, vital signs are stable. Cultures, no growth to date. One is pinpoint, reincubating. Wound is benign. No hematoma. Some eschar, but otherwise well perfused, he althy skin without any active drainage or erythema. Plan is to discharge him home today. Discontinue the PICC line. Follow up on Monday. Discharge on Diflucan and a suitable oral antibiotic. Initially, we thought Zyvox, but it is listed as an allergy . We will coordinate with medicine. Discussed appropriate care of his diabetes as well as elevation and offloading. Job ID: [id number]
[2021-09-30] MEDS ORDERED: INSULIN GLARGINE SOLOSTAR 100 UNITS/ML 3 ML PEN SC SCH (21:00)
[2021-09-30] MEDS: SENNA 8.6 MG TAB PO SCH (21:00)
[2021-10-01] MEDS: ACETAMINOPHEN 500 MG TAB PO PRN ×2 (00:58→15:21)
[2021-10-01] MEDS: CEFEPIME 2,000 MG in SYRINGE 0 ML IV SCH ×2 (05:49→13:49)
[2021-10-01] MEDS: FLUCONAZOLE 100 MG TAB PO SCH (08:56)
[2021-10-01] MEDS: DOCUSATE SODIUM 100 MG CAP PO SCH (08:56)
[2021-10-01] MEDS: MULTIVITAMIN TAB PO SCH (08:57)
[2021-10-01] MEDS: APIXABAN 5 MG TABLET PO SCH (08:57)
[2021-10-01] MEDS: METOPROLOL SUCC 25MG EXT REL TAB PO SCH (08:58)
[2021-10-01] MEDS: INSULIN GLARGINE SOLOSTAR 100 UNITS/ML 3 ML PEN SC SCH (08:58)
[2021-10-01] MEDS: INSULIN ASPART PER UNIT SC SCH ×3 (09:09→17:46)
[2021-10-01] MEDS: DAPTOmycin 700 MG in SYRINGE 0 ML IV SCH (09:10)
--- NOTE | 2021-10-01 09:35 | Orthopedic Progress Note ---
Date of Service October 01, 2021 Assessment & Plan (1) Amputation of great toe: Plan: Keep the dressing and the post OP shoe clean, dry and in place. elevate the leg. To the charge nurse. She is not sure what time the patient is going to have his ID consult. She states that she will send me a [place] text after is complete. I advised the patient that once he has the consult visit and the antibiotic is determined we will provide him with a prescription for it and hopefully discharge him sometime later today. All of this information was relayed to Dr. Mendosa. Admission and Anticipated Discharge Date Admission Date: September 28, 2021 Subjective This 61-year-old male seen for follow-up of a partial right great toe amputation. Patient states that last night his boot got caught up and something in was removed and pulled the dressing off. He states that the nurses tried to redress it but he would like me to apply a new dressing today. He states he really has no pain. He states that he is yet to do a telehealth visit with infectious disease to discuss antibiotic treatment so he can be discharged to home. He hopes that he does not have to stay throughout the weekend. Review of Systems Review of Systems: All systems reviewed & are unremarkable except as noted in Subjective Physical Exam Physical Exam: Right foot: Patient's dressing was essentially removed. The Xeroform was still left in place. I did lift it and visualize the sutures were intact. There is no drainage. There was mild erythema and edema but no ecchymosis. I reapplied the Xeroform. I placed a nonstick Telfa pad over this. I put some sterile gauze 4 x 4's in between his remaining digits. I placed a ABD pad over the dorsum of the foot and lightly wrapped it with Curlex and then reapplied his Inocencio bandages and the postoperative shoe. Patient states that this was much more comfortable than the when the nurse tried to apply earlier this morning. He is able to perform an active straight leg raise test. He is able to actively dorsi and plantarflex his foot. He has a numb sensation to palpation over digits 2 through 5. His calf is soft and supple nontender to palpation. He is neurovascularly intact in the right lower extremity. Results & Data ([facility]) Vital Signs (Past 12 Hours) Vital Signs Temp Pulse Resp BP Pulse Ox 10/01/21 07:22 36.4 C L 85 16 154/79 H 98 09/30/21 22:35 36.7 C 94 H 16 106/69 96 Diagnostic Findings Laboratory Results WBC 8.27 K/uL (4.8-10.8) 09/30/21 05:10 RBC 4.51 M/uL (4.7-6.1) L 09/30/21 05:10 Hgb 12.2 g/dL (14.0-18.0) L 09/30/21 05:10 Hct 36.7 % (42-52) L 09/30/21 05:10 MCV 81.4 fL (80-100) 09/30/21 05:10 MCH 27.1 pg (25-34) 09/30/21 05:10 MCHC 33.2 g/dL (32-36) 09/30/21 05:10 RDW Std Deviation 45.2 fL (36.4-46.3) 09/30/21 05:10 RDW Coeff of Adriana 15.3 % (11.5-14.5) H 09/30/21 05:10 Plt Count 263 K/uL (130-400) 09/30/21 05:10 MPV 10.8 fL (7.4-10.4) H 09/30/21 05:10 Immature Gran % (Auto) 0.1 % 09/30/21 05:10 Neut % (Auto) 64.9 % 09/30/21 05:10 Lymph % (Auto) 23.2 % 09/30/21 05:10 Drew % (Auto) 9.6 % 09/30/21 05:10 Eos % (Auto) 1.7 % 09/30/21 05:10 Baso % (Auto) 0.5 % 09/30/21 05:10 Neut # (Auto) 5.37 K/uL (1.4-6.5) 09/30/21 05:10 Lymph # (Auto) 1.92 K/uL (1.2-3.4) 09/30/21 05:10 Drew # (Auto) 0.79 K/uL (0.11-0.59) H 09/30/21 05:10 Eos # (Auto) 0.14 K/uL (0-0.5) 09/30/21 05:10 Baso # (Auto) 0.04 K/uL (0-0.2) 09/30/21 05:10 Immature Gran # (Auto) 0.01 K/uL (0.00-0.02) 09/30/21 05:10 ESR 31 mm/hr (0-20) H 09/29/21 12:43 Sodium 135 mmol/L (136-145) L 09/30/21 05:10 Potassium 4.1 mmol/L (3.5-5.1) 09/30/21 05:10 Chloride 102 mmol/L (98-107) 09/30/21 05:10 Carbon Dioxide 24 mmol/L (21-32) 09/30/21 05:10 Anion Gap 9 (3-11) 09/30/21 05:10 BUN 23 mg/dl (6-23) 09/30/21 05:10 Creatinine 0.95 mg/dl (0.6-1.4) 09/30/21 05:10 Est Cr Clr Drug Dosing 81.7 ml/min 09/30/21 05:10 Est GFR ( Amer) 99.7 ml/min 09/30/21 05:10 Est GFR (Non-Af Amer) 86.1 ml/min 09/30/21 05:10 BUN/Creatinine Ratio 24.2 (10-20) H 09/30/21 05:10 Glucose 208 mg/dl (70-99(Fasting)) H 09/30/21 05:10 POC Glucose 290 mg/dl (70-99) H 10/01/21 08:10 Calcium 9.3 mg/dl (8.5-10.1) 09/30/21 05:10 Magnesium 2.1 mg/dl (1.7-2.4) 09/30/21 05:10 C-Reactive Protein 0.71 mg/dl (0-0.5) H 09/29/21 05:34 SARS-CoV-2, RNA, NAAT NEGATIVE (NEGATIVE) 09/28/21 14:35 Impressions Toe X-Ray 09/28/21 13:50 FL toe RT 2V CLINICAL HISTORY: RT BIG TOE AMPUTATION TECHNIQUE: 1 views were obtained with the C-arm in the OR with the above procedure. Total fluoroscopy time was 6.7 seconds. Total skin dose was 0.17 mGy. Comparison: None available at the time of this dictation. FINDINGS/IMPRESSION: Intraoperative images were obtained of right great toe amputation. Please correlate with intraoperative fluoroscopy and operative report. ACT 112: Negative or not required by law. Electronically signed by: Vernon Hinds M.D. 09/28/2021 7:13 PM
--- NOTE | 2021-10-01 14:32 | Hospitalist Progress Note ---
Date of Service October 01, 2021 Assessment & Plan (1) Osteomyelitis: Plan: S/p amputation of the right hallux done 09/28 (Dr. Mendosa) for progressive osteomyelitis failing IV antibiotics No perioperative complications Recommend DVT prophylaxis, adequate postoperative pain management, PT/OT and weightbearing restrictions at discretion of primary team * Patient takes Eliquis routinely. Once okay to resume per surgery, this would provide adequate DVT prophylaxis, appears ortho said acceptable to resume on 09/29 Established with ID-Treated with linezolid but developed an allergy, followed by IV antibiotics (first vancomycin then later transitioned to IV daptomycin) Prior wound culture showed Enterobacter, heavy growth of yeast, and coag negative staph species Has been following infectious disease as an outpatient. PICC line in place Discussed with Dr. Burris and all infected toe has been amputated. No joint space or tendon involvement seen on MRI At this point, no need for continued IV antibiotics. Can transition to oral. Would advise 2 weeks of treatment (to conclude 10/13) For now, continue empiric antibiotic therapy until culture data available. Prior culture data from 08/24. Bone sample sent for analysis and pending Continue daptomycin. Add cefepime given his underlying history of diabetes mellitus and risk for pseudomonal infection Add Diflucan given recent history of heavy growth of yeast and wound culture Bone culture yielding no growth, thus would advise treating based on prior culture data (for Enterococcus, coag negative staph and yeast + Enterobacter noted on R foot culture from 08/30/21). Would treat based on prior culture data. Unfortunately due to his allergy to Zyvox and PCN. Attempted to d/w ID on 09/30 but they requested formal consult, subsequently this was placed. ID recommending IV Dapto x 6 weeks and Cipro. No mention of Diflucan. I do not agree with this recommendation, reached out to Dr. Rene (who was inspector assemblies and installations as I was unable to reach Dr. Thomason) and he agreed that since ortho ensured good margins w/o residual infected bone that an additional 5 days of IV Dapto (due to limited options given his reaction to Zyvox and Vanco). Literature states you can d/c abx as early as 2 days after debridement up to 5 days. Cipro was also recommended by Dr. Thomason, my guess is this was advised d/t the growth of Enterobacter. I would recommend 7 additional days of antibiotics and then stop. Agree with Cipro 500mg BID d/t the Enterobacter + Dapto 750mg IV daily, plus Diflucan d/t yeast all for an additional one week (7 day) course. This was d/w orthopedics, Dr. Mendosa. (2) Paroxysmal atrial fibrillation: Plan: Currently examines in a sinus rhythm Was on metoprolol in the past but self discontinued as "did not need it" Lengthy discussion with patient and risk of paroxysmal atrial fibrillation. Heart rate currently 91 and blood pressure elevated. Would benefit from addition of beta-blockade. After lengthy discussion, patient agreeable Resumed Eliquis on 09/29 Started on metoprolol XL 25 mg daily (tolerating well) - would continue upon discharge (3) Diabetes: Plan: Home RX (HOLD): metformin 1000mg b.i.d., Jardiance 25mg PO qAM, insulin glargine 31U qAM Last A1c elevated at 10.6 (done 09/08/2021) Currently on Lantus/logpharmacy managing. Appreciate assistance Lengthy discussion with patient regarding the importance of good glycemic control (4) Essential hypertension: Plan: Was on lisinopril in the past but self discontinued this medication. BP currently accelerated at 150s/90s As stated above, also self discontinued metoprolol. Would benefit from beta- blockade at this point thus metoprolol initiated Patient very reluctant to addition of any added antihypertensive agents but would benefit from lisinopril for nephro protection. Can discuss this with PCP (5) Mixed hyperlipidemia: Plan: Continue rosuvastatin Plan: No further recommendations at this time other than as outlined above. Medically stable for discharge. Above plan of care d/w Dr. Dunaway. Admission and Anticipated Discharge Date Admission Date: September 28, 2021 Subjective Patient was seen on rounds this morning. He is resting comfortably in bed and offers no complaints. He denies uncontrolled foot pain or incisional pain, denies cp, dyspnea, n/v/d, f/c, headache, or gu symptoms. He is awaiting input from ID on post-discharge abx therapy. Review of Systems Review of Systems: All systems reviewed and are unremarkable except as noted in HPI and below. Denies fever, chills, fatigue, headache, nasal congestion, sore throat, cough, chest pain, shortness of breath, palpitations, orthopnea, PND, abdominal pain, n/v/d, constipation, dysuria, hematuria, frequency, back pain, joint pain or swelling, easy bruising or bleeding, skin lesions or rashes. Physical Exam Physical Exam: GENERAL: 61 yo well-developed, well-nourished WM. NAD. LUNGS: Clear to auscultation bilaterally. No W/R/R. CARDIOVASCULAR: Regular rate and rhythm. ABDOMEN: Soft, non-tender and non-distended. BS normoactive x 4 quad. EXTREMITIES: RLE Surgical dressing present, wrapped in josé miguel. Cap refill in toes <2 sec. DP pulse +2/4 NEUROLOGIC: A&O x3. PSYCHIATRIC: Cooperative. Appropriate mood and affect. SKIN: Warm, dry, intact. No rashes or lesions. Results & Data Results & Data ([facility]) Vital Signs (Past 12 Hours) Vital Signs Temp Pulse Resp BP Pulse Ox 10/01/21 07:22 36.4 C L 85 16 154/79 H 98 PG Care Time/CCT Total # of Minutes Spent Total Time Spent with Patient: Total time spent is greater than 50% in coordination of care (as documented) at patient's floor/unit and/or counseling patient: Coding Level of Care Code 71349 Subseq Hosp Care Lvl 2 Diagnoses Osteomyelitis M86.9 Paroxysmal atrial fibrillation I48.0 Diabetes E11.9 Essential hypertension I10 Mixed hyperlipidemia E78.2
--- NOTE | 2021-10-01 15:55 | Progress Notes ---
DATE OF SERVICE: 10/01/2021. Awaiting ID recs for antibiotics. We will plan accordingly after the appointment later today. Job ID: [id number]
[2021-10-01] MEDS ORDERED: CIPROFLOXACIN 500MG HOME PACK PO ONE (17:03)
--- NOTE | 2021-10-04 12:43 | Discharge Summary ---
Date of Service October 04, 2021 Discharge Data Consultations 09/28/21 19:19 Consult Hospitalist Routine 09/30/21 17:11 Consult Infectious Diseases Routine Procedures Performed Operation Date: 09/28/21 13:50 Actual Procedures p Rigth Big Toe Partial Amputation(Right) - Boris Mendosa MD Hospital Course (1) Amputation of great toe: [facility] after undergoing an elective amputation of his right great toe on September 28, [address] Mendosa. His surgery was performed with General anesthesia. He was given IV Ancef for surgical prophylaxis. He tolerated the procedure well without any intraoperative complications. Postoperatively he was allowed to weight-bear as tolerated on his right lower extremity on his heel. He was placed in postoperative dressings and a postoperative shoe. He was advised to ambulate with the assistance of a walker. He was continued on his IV daptomycin thru his PICC line in his right arm. He was given a regular diabetic diet. Hospitalist consult was placed for medical management. He tolerated a regular diet during his inpatient stay. His vital signs are stable. His home medications were continued. His dressings on his right foot were changed on postoperative day 2. The incision was clean, dry and intact with no active drainage. No postoperative dressings were applied. Discharge instructions were reviewed with the patient. There was discussion about discharging him on Diflucan and Zyvox although he does have an allergy to Zyvox. An ID consult was placed on postoperative day 3 and he was seen by telehealth. They recommended continuation of his IV daptomycin and Cipro. After discussion with the hospitalist it was determined that he would be on this for about 5 days after surgery. Prescriptions were provided. He was discharged to his home in stable condition on October 01, 2021. Again discharge instructions were reviewed. All questions were answered. He will follow-up as an outpatient next few days after surgery for repeat dressing change. His PICC remained in place for IV daptomycin. He did have a dose at home and case management arranged for delivery of the medication on Monday, October 02, 2021. His medications were sent to the pharmacy.
== END 2021-10-01 18:42 | disposition home or self-care (01) | DRG 617 ==
LOC: ASU 14:18 → 3N 18:01

== ENCOUNTER 2022-11-12 22:37 | Inpatient (IN) ==
--- NOTE | 2022-11-12 23:08 | Emergency Department Note ---
History of Present Illness General Chief complaint: Infection, Wound Stated complaint: INFECTED WOUND,FEVER,CHILLS RUNNY NOSE Time Seen by Provider: 11/12/22 22:43 History of Present Illness 62-year-old male presents emergency department has a history of diabetic foot ulcers and diabetic foot infections presents after he had caused an injury to his right foot [place] Patient is followed by the wound care center. Patient tonight had shaking chills rigors and fever. Patient's had a prior sepsis and a fib according to family. Patient has taken 3 days worth of Bactrim. Patient has no other complaints except for runny nose mild cough. There are no other mitigating or alleviating factors Home Medications Medication Instructions Recorded Confirmed Type empagliflozin 25 mg tablet 25 mg PO QAM 07/31/20 10/28/22 History (Jardiance) apixaban 5 mg tablet 5 mg PO BID 08/20/21 10/28/22 History acetaminophen 500 mg tablet 1,000 mg PO Q8 PRN fever or pain 09/30/21 10/28/22 Rx (Tylenol Extra Strength) #30 tabs metoprolol succinate 25 mg 25 mg PO QAM #30 tabs 10/01/21 10/28/22 Rx tablet,extended release 24 hr insulin glargine 100 unit/mL (3 34 unit subcut QAM 10/13/22 10/28/22 History mL) subcutaneous pen (Basaglar KwikPen U-100 Insulin) tirzepatide 2.5 mg/0.5 mL 2.5 mg subcut .Weekly 10/13/22 10/28/22 History subcutaneous pen injector (Mounjaro) sulfamethoxazole 800 1 tab PO BID 14 days #28 tabs 11/09/22 Rx mg-trimethoprim 160 mg tablet (Bactrim DS) Allergies Allergy/AdvReac Type Severity Reaction Status Date / Time Penicillins Allergy Severe THROAT Verified 11/07/22 10:32 SWELLING WITH BLISTERS linezolid Allergy Unknown tongue Verified 11/07/22 10:32 swelling,ITCHY Past Med/Surg History Medical History Acid reflux "MILD" Atrial fibrillation On Eliquis Diabetes Hx of gout Neuropathy RT LEG Surgical History H/O knee surgery RT/LEFT History of appendectomy History of herniorrhaphy History of nasal cauterization History of tonsillectomy and adenoidectomy S/P foot surgery, right [place] teeth removed Family History Father Family history of diabetes mellitus Father Muscular dystrophy Other No family history of adverse response to anesthesia Social History Smoking Status: Never smoker Tobacco Type: Smokeless Tobacco (Dip or Chew) Age Started Using Tobacco: 12; Cigarettes Per Day: ~1 can daily; Second Hand Exposure: No; Do You Dip or Chew Tobacco: Yes (1 CAN PER day); Hx Alcohol Use: No Hx Substance Use: No Preferred Language: Portuguese Communication Ability: Effective Visual Impairment: Limited Hearing Ability: Use of Hearing Aid Lugger Required: No Beliefs That Will Affect Care: None marital status: Current Living Situation: Spouse Current Living Situation Comment: 2 story home with current occupational status: retired and disabled How many Children do You have: 3 How many Children do You have Comment: works, able to assist a little. Pt independent with care at this time. Feels Safe at Home: Yes Diet: regular during the past year weight has: remained stable Gender Identity: Male Assistive Devices: Scooter/Electric Scooter and Special Shoe Review of Systems A total of 10 systems reviewed and were otherwise negative Constitutional: + fever and + body aches Respiratory: no cough Cardiovascular: no chest pain Gastrointestinal: no abdominal pain Integumentary: + wounds Physical Exam Vital Signs Vital Signs - 24 hr 11/12/22 22:39 11/12/22 22:59 11/12/22 22:59 Temperature 37.8 C H Temperature Source Temporal Artery Scan Pulse Rate 117 H 113 H Pulse Rate from SpO2 Sensor Respiratory Rate 20 Respiratory Effort / Characteristics Non-Labored Spontaneous Respiratory Depth Normal Blood Pressure 124/66 Blood Pressure Mean 85 Pulse Oximetry 97 97 Oxygen Delivery Method Room Air Room Air Sepsis Recent Fever Within 48 Hours No Sepsis New/Unexplained Change in Mental Status No Sepsis Action Taken by Nursing No Action Required 11/12/22 22:44 11/13/22 00:00 11/12/22 22:52 Temperature Temperature Source Pulse Rate 113 H Pulse Rate from SpO2 Sensor Respiratory Rate 24 Respiratory Effort / Characteristics Non-Labored Non-Labored Respiratory Depth Normal Normal Blood Pressure Blood Pressure Mean Pulse Oximetry Oxygen Delivery Method Sepsis Recent Fever Within 48 Hours Sepsis New/Unexplained Change in Mental Status Sepsis Action Taken by Nursing 11/12/22 22:54 11/12/22 22:54 11/12/22 23:00 Temperature Temperature Source Pulse Rate 115 H 114 H Pulse Rate from SpO2 Sensor 115 H 114 H Respiratory Rate 17 21 Respiratory Effort / Characteristics Respiratory Depth Blood Pressure 128/68 Blood Pressure Mean 80 Pulse Oximetry 96 96 Oxygen Delivery Method Sepsis Recent Fever Within 48 Hours Sepsis New/Unexplained Change in Mental Status Sepsis Action Taken by Nursing 11/12/22 23:10 11/12/22 23:20 11/12/22 23:30 Temperature Temperature Source Pulse Rate 109 H 110 H 113 H Pulse Rate from SpO2 Sensor 109 H 111 H 114 H Respiratory Rate 19 20 23 Respiratory Effort / Characteristics Respiratory Depth Blood Pressure Blood Pressure Mean Pulse Oximetry 97 95 96 Oxygen Delivery Method Sepsis Recent Fever Within 48 Hours Sepsis New/Unexplained Change in Mental Status Sepsis Action Taken by Nursing 11/12/22 23:40 11/12/22 23:50 Temperature Temperature Source Pulse Rate 111 H 110 H Pulse Rate from SpO2 Sensor 112 H 111 H Respiratory Rate 21 18 Respiratory Effort / Characteristics Respiratory Depth Blood Pressure Blood Pressure Mean Pulse Oximetry 98 97 Oxygen Delivery Method Sepsis Recent Fever Within 48 Hours Sepsis New/Unexplained Change in Mental Status Sepsis Action Taken by Nursing GENERAL: Patient is awake alert in no acute distress patient is resting comfortably and showing no signs of anxiety EYES: The conjunctivae are clear. The pupils are round and reactive. EARS, NOSE, MOUTH AND THROAT: The nose is without any evidence of any deformity. Mucous membranes are moist. Tongue is midline. NECK: The neck is nontender and supple. RESPIRATORY: Normal respiratory effort is noted there is no evidence of wheezing rhonchi or rales CARDIOVASCULAR: Tachycardic rate and rhythm noted there no murmurs rubs or gallops normal S1 normal S2. GASTROINTESTINAL: The abdomen is soft. Abdomen is nontender. BACK: No midline tenderness or or step-off noted range of motion in flexion extension as well as rotation no signs of muscle spasm noted MUSCULOSKELETAL/EXTREMITIES: There is no evidence of gross deformity full range of motion is noted in the hips and shoulders. Right foot; lateral erythema with ulcer present; medial ulcer present on plantar surface; no significant lymphangitis or purulent discharge SKIN: There is no obvious evidence of any rash. There are no petechiae, pallor or cyanosis noted. NEUROLOGIC: Patient is awake alert and oriented x3 strength is symmetric Course Reevaluation(s) Reevaluation #1: Patient was started on IV fluids, IV antibiotics Time: 00:29 Consultations Consultation #1: Case was discussed with the [facility] for admission Time: 00:29 Administered Medications Vancomycin HCl 1,500 mg/ (Sodium Chloride) 530 mls @ 200 mls/hr IV NOW ONE Stop: 11/13/22 02:20 Last Admin: 11/13/22 00:13 Dose: 200 mls/hr Documented By: DAVID Sodium Chloride (Nss 1000ml) 1,000 mls @ 999 mls/hr IV .Q1H1M ONE Stop: 11/13/22 00:47 Last Admin: 11/13/22 00:11 Dose: 999 mls/hr Documented By: DAVID Discontinued Medications Cefepime HCl (Maxipime) 2,000 mg in 20 mls @ 5 mls/min IV NOW STA; Protocol Stop: 11/12/22 23:45 Last Admin: 11/13/22 00:08 Dose: 5 mls/min Documented By: DAVID Medical Decision Making Medical Records Attestation: I reviewed the patient's medical records. Home Medications Current Medication List: was personally reviewed by Laboratory Data Attestation: I reviewed the patient's lab results. Patient has a slightly elevated white blood cell count has a low sodium and an elevated creatinine as interpreted by me 11/12/22 22:55 11/12/22 22:55 Lab Results 11/12/22 11/12/22 11/12/22 Range/Units 22:50 22:55 22:55 WBC 11.91 H (4.8-10.8) K/ul RBC 5.16 (4.70-6.10) M/uL Hgb 14.2 (14.0-18.0) g/dl Hct 41.6 L (42.0-52.0) % MCV 80.6 (80.0-100.0) fL MCH 27.5 (25.0-34.0) pg MCHC 34.1 (32.0-36.0) g/dL RDW Std Deviation 38.2 (36.4-46.3) fL RDW Coeff of Adriana 13.2 (11.5-14.5) % Plt Count 369 (130-400) K/uL MPV 10.1 (9.4-12.4) fL Immature Gran % (Auto) 0.4 % Neut % (Auto) 81.2 % Lymph % (Auto) 7.7 % Kendall % (Auto) 9.9 % Eos % (Auto) 0.3 % Baso % (Auto) 0.5 % Neut # (Auto) 9.66 H (1.40-6.50) K/uL Lymph # (Auto) 0.92 L (1.2-3.4) K/uL Kendall # (Auto) 1.18 H (0.11-0.59) K/uL Eos # (Auto) 0.04 (0-0.50) K/uL Baso # (Auto) 0.06 (0-0.2) K/uL Immature Gran # (Auto) 0.05 (0.01-0.20) K/uL Sodium 128 L (136-145) mmol/L Potassium 4.5 (3.5-5.1) mmol/L Chloride 98 (98-107) mmol/L Carbon Dioxide 20 L (21-32) mmol/L Anion Gap 10 (3-11) BUN 32 H (6-23) mg/dl Creatinine 1.45 H (0.6-1.4) mg/dl Est Cr Clr Drug Dosing 52.8 ml/min Est GFR ( Amer) 59.4 ml/min Est GFR (Non-Af Amer) 51.2 ml/min BUN/Creatinine Ratio 22.1 H (10-20) Glucose 234 H (70-99(Fasting)) mg/dl Lactate (0.4-2.0) mmol/L Calcium 9.6 (8.6-10.3) mg/dl Magnesium 2.0 (1.7-2.4) mg/dl Total Bilirubin 0.5 (0.2-1.0) mg/dl Direct Bilirubin 0.0 (0-0.2) mg/dl AST 16 (13-39) U/L ALT 14 (7-52) U/L Alkaline Phosphatase 77 (34-104) U/L Troponin I High Sens 5.1 (0-20) pg/ml Total Protein 8.0 (6.0-8.3) gm/dl Albumin 4.2 (3.4-5.0) gm/dl Procalcitonin (0-0.5) ng/ml SARS-CoV-2, RNA, NAAT NEGATIVE (NEGATIVE) 11/12/22 11/12/22 Range/Units 22:55 23:22 WBC (4.8-10.8) K/ul RBC (4.70-6.10) M/uL Hgb (14.0-18.0) g/dl Hct (42.0-52.0) % MCV (80.0-100.0) fL MCH (25.0-34.0) pg MCHC (32.0-36.0) g/dL RDW Std Deviation (36.4-46.3) fL RDW Coeff of Adriana (11.5-14.5) % Plt Count (130-400) K/uL MPV (9.4-12.4) fL Immature Gran % (Auto) % Neut % (Auto) % Lymph % (Auto) % Kendall % (Auto) % Eos % (Auto) % Baso % (Auto) % Neut # (Auto) (1.40-6.50) K/uL Lymph # (Auto) (1.2-3.4) K/uL Kendall # (Auto) (0.11-0.59) K/uL Eos # (Auto) (0-0.50) K/uL Baso # (Auto) (0-0.2) K/uL Immature Gran # (Auto) (0.01-0.20) K/uL Sodium (136-145) mmol/L Potassium (3.5-5.1) mmol/L Chloride (98-107) mmol/L Carbon Dioxide (21-32) mmol/L Anion Gap (3-11) BUN (6-23) mg/dl Creatinine (0.6-1.4) mg/dl Est Cr Clr Drug Dosing ml/min Est GFR ( Amer) ml/min Est GFR (Non-Af Amer) ml/min BUN/Creatinine Ratio (10-20) Glucose (70-99(Fasting)) mg/dl Lactate 1.1 (0.4-2.0) mmol/L Calcium (8.6-10.3) mg/dl Magnesium (1.7-2.4) mg/dl Total Bilirubin (0.2-1.0) mg/dl Direct Bilirubin (0-0.2) mg/dl AST (13-39) U/L ALT (7-52) U/L Alkaline Phosphatase (34-104) U/L Troponin I High Sens (0-20) pg/ml Total Protein (6.0-8.3) gm/dl Albumin (3.4-5.0) gm/dl Procalcitonin 0.09 (0-0.5) ng/ml SARS-CoV-2, RNA, NAAT (NEGATIVE) Imaging Data Attestation: I personally reviewed and interpreted this imaging study as follows: ECG Data Attestation: I personally reviewed and interpreted this ECG as follows: Additional Comments: EKG interpreted by me sinus tachycardia rate of 114 normal intervals normal axis no obvious ST segment elevation or depression Telemetry was ordered by me, interpreted as sinus tachycardia rate of 112 MDM Narrative Medical decision making differential diagnosis includes sepsis, viral syndrome, upper respiratory tract infection, foot ulcer, diabetic foot infection Plan is to check labs, sepsis protocol External medical records were reviewed by me from the diabetic wound care notes Family provided me bedside report Patient was started on IV antibiotics I suspect that the patient has a diabetic foot infection Patient does not have any current evidence of severe sepsis, patient was given IV fluids, started on IV antibiotics and admitted Patient is not in septic shock at 12:29 AM Impression & Plan Diabetic infection of right foot, Acute dehydration, Acute hyponatremia Discharge Plan Visit Data Chief Complaint: Infection, Wound Stated Complaint: INFECTED WOUND,FEVER,CHILLS RUNNY NOSE ED Provider: Triston Cervantes Discharge Problem: Diabetic infection of right foot, Acute dehydration, Acute hyponatremia Patient Disposition: Admitted As Inpatient Forms Stand Alone Forms: My [facility] Prescriptions Prescriptions: No Action apixaban 5 mg tablet 5 mg PO BID Mounjaro 2.5 mg/0.5 mL pen injector 2.5 mg subcut .Weekly sulfamethoxazole-trimethoprim [Bactrim DS] 800-160 mg tablet 1 tab PO BID 14 Days Qty: 28 0RF Jardiance 25 mg Tablet 25 mg PO TEJ Romero U-100 Insulin 100 unit/mL (3 mL) insulin pen 34 unit SUBCUT QAM acetaminophen [Tylenol Extra Strength] 500 mg Tablet 1,000 mg PO Q8 PRN (Reason: fever or pain) Qty: 30 0RF metoprolol succinate 25 mg Tablet Extended Release 24 Hr 25 mg PO QAM Qty: 30 0RF Referrals Referrals: Cristofer Patel MD [Primary Care Provider] -
[2022-11-12 23:29] LABS: Basophils # (auto) 0.06 K/uL (0-0.2); Basophils % (auto) 0.5 %; Eosinophils # (auto) 0.04 K/uL (0-0.50); Eosinophils % (auto) 0.3 %; Hematocrit (blood only) 41.6 % (42.0-52.0); Hemoglobin 14.2 g/dl (14.0-18.0); Immature Granulocytes # (auto) 0.05 K/uL (0.01-0.20); Immature Granulocytes % (auto) 0.4 %; Lymphocytes # (auto) 0.92 K/uL (1.2-3.4); Lymphocytes % (auto) 7.7 %; Mean Corpuscular Hemoglobin 27.5 pg (25.0-34.0); Mean Corpuscular Hgb Conc 34.1 g/dL (32.0-36.0); Mean Corpuscular Volume 80.6 fL (80.0-100.0); Mean Platelet Volume 10.1 fL (9.4-12.4); Monocytes # (auto) 1.18 K/uL (0.11-0.59); Monocytes % (auto) 9.9 %; Neutrophils # (auto) 9.66 K/uL (1.40-6.50); Neutrophils % (auto) 81.2 %; Platelet Count 369 K/uL (130-400); RDW Coefficient of Variation 13.2 % (11.5-14.5); RDW Standard Deviation 38.2 fL (36.4-46.3); Red Blood Count 5.16 M/uL (4.70-6.10); White Blood Count 11.91 K/ul (4.8-10.8)
[2022-11-12] MEDS ORDERED: CEFEPIME 2,000 MG/20 ML VIAL IV STA (23:42)
[2022-11-12] MEDS ORDERED: VANCOMYCIN HCL 1,500 MG in SODIUM CHLORIDE 0.9% 500 ML IV ONE (23:42)
[2022-11-12] MEDS ORDERED: VANCOMYCIN CONSULT ACTIVE PRN (23:42)
[2022-11-12 23:45] LABS: Albumin Level 4.2 gm/dl (3.4-5.0); BUN Creatinine Ratio 22.1 (10-20); Bilirubin,Total 0.5 mg/dl (0.2-1.0); Calcium 9.6 mg/dl (8.6-10.3); Creatinine Clr Calc Pharmacy 52.8 ml/min; Est GFR (African American) 59.4 ml/min; Est GFR (Non-African American) 51.2 ml/min; Potassium 4.5 mmol/L (3.5-5.1)
[2022-11-12] MEDS ORDERED: SODIUM CHLORIDE 0.9% 1000ML 1,000 ML IV ONE (23:47)
[2022-11-12 23:50] LABS: Troponin I High Sensitivity 5.1 pg/ml (0-20)
[2022-11-13] MEDS ORDERED: CARBOHYDRATES FOR HYPOGLYCEMIA PO PRN (03:16)
[2022-11-13] MEDS ORDERED: GLUCOSE 10 TAB/TUBE PO PRN (03:16)
[2022-11-13] MEDS ORDERED: GLUCOSE 40% GEL 15 GM TUBE PO PRN (03:16)
[2022-11-13] MEDS ORDERED: DEXTROSE 50% 50 ML SYRINGE IV PRN (03:16)
[2022-11-13] MEDS ORDERED: LANTUS PER UNIT CHARGE SQ ONE (03:16)
[2022-11-13] MEDS ORDERED: GLUCAGON FOR INJ 1 MG VIAL SQ PRN (03:16)
[2022-11-13] MEDS ORDERED: LACTATED RINGER'S 1,000 ML IV SCH (03:36)
--- NOTE | 2022-11-13 03:50 | Pharmacy Report ---
Pharmacy PK ABX Note - Date of Service November 13, 2022 - Assessment and Plan Assessment 62 year old M receiving Vancomycin and Zosyn for treatment of diabetic foot infection. * Day #1 of antimicrobial therapy. * Low grade fever. Leukocytosis of 12k. Procal 0.09. * Blood cultures pending. Plan Vancomycin * Loading dose: 1500 mg IV x 1 * Maintenance dose: 750 mg IV every 12 hours * Regimen is predicted to achieve target AUC/JUVE of 400-600 mg/L.hr * Random level ordered for: 11/14/22 Pharmacy will continue to follow and will adjust dose/frequency as necessary. Thank you. Pharmacy has transitioned to AUC monitoring for vancomycin. AUC/JUVE is the preferred PK/PD target and is associated with decreased risk of nephrotoxicity compared to traditional trough targets.
[2022-11-13] MEDS ORDERED: PIPERACILLIN/TAZOBACTAM 4.5 GM in DEXTROSE 5% 100 ML IV SCH ×2 (04:00→06:00)
--- NOTE | 2022-11-13 04:09 | History & Physical Report ---
Date of Service November 13, 2022 Assessment & Plan (1) Diabetic peripheral neuropathy associated with type 2 diabetes mellitus: Plan: 62 M with PMH of history of DM2 and associated Charcot neuropathy (s/p great toe amputation of right foot, multiple diabetic foot infections, previous osteomyelitis), AF, hyperlipidemia, hypertension, who presented to the ED for worsening ulcer of lateral right foot. Now admitted for podiatry evaluation/osteomyelitis rule out, medical management. Diabetic peripheral neuropathy/right foot ulcer -Initial injury on 11/03, followed by wound care, wound culture MSSA. Refractory to Bactrim x4 days. -Afebrile, slight leukocytosis (1.91) on admission. ESR-98, CRP-6.87. -Awaiting XR foot radiology read; suspect bony degeneration of lateral fifth metatarsal suggestive of osteomyelitis. -S/p IV vancomycin 1.5 g (+0.75 g), IV cefepime 2 g in the ED. * Admit to [facility] [place] * Initiate antibiotic regimen for suspected osteomyelitis: IV vancomycin, IV Zosyn 4.5 g every 8 hours. Await blood culture, wound culture results. * Daily wound care * MRI pending * Podiatry consult placed. Appreciate recommendations. * Trend CBC Type 2 diabetes -Chronic; poorly controlled. Managed on Lantus 34 units daily, Jardiance 25 mg every morning, Mounjaro 2.5 mg SQ q. Monday. -BSG 234 on admission. Patient had taken morning dose. Gave 5 additional units of Lantus. Repeat BSG 130. -Most recent hemoglobin A1c in September-10.6 * Holding p.o. antihyperglycemics * Lantus 30 units every morning, SSI coverage per protocol * ACHS glucose checks Paroxysmal atrial fibrillation -Acute; s/p electrocardioversion in September 2022. No prior history of A-fib outside of sepsis or bacteremia episode. -Was started on anticoagulation. However, patient stopped taking few months ago as he felt he did not have true A-fib. -Continued to take metoprolol. -Irregularly irregular heartbeats with HR's in the 100s-110s on admission. * Continue Toprol 25 mg every morning Hyponatremia -Acute; usual baseline 132-135. -Suspect infection, hyperglycemia, poor p.o. intake, as opposed to true hyponatremia. Expect sodium level to return to baseline as blood glucose is controlled. -S/p IV maintenance fluids on admission. D/C at breakfast * Trend BMP Hypertension -Chronic; managed on metoprolol succinate 25 mg every morning. * Continue home Toprol Code: Full code Dispo: Med-Surg FEN/GI: Carb consistent DVT Prophylaxis: Lovenox 40 mg q24h PT/OT: Yes Consults: Podiatry Case Management: No (2) Diabetic ulcer of right foot: (3) Acute hyponatremia: (4) Diabetes mellitus, type 2: (5) Essential hypertension: (6) Mixed hyperlipidemia: Admission and Anticipated Discharge Date Admission Date: November 13, 2022 History of Present Illness Primary Care Provider: Cristofer Patel MD Andre is a 62-year-old man with a history of DM2, Charcot neuropathy (multiple diabetic foot infections, previous osteomyelitis), hypertension who presented to the emergency room for nonhealing injury to his right foot x10 days. [place] his lateral right foot. He went to the wound care center, where he goes for wound checks once weekly. Wound was cultured and dressed, and eventually returned positive for oxacillin- sensitive Staph aureus. He was started on Bactrim twice daily and, on presentation to the emergency room, had completed 4 days of the course. 2 days ago, however, he began to develop shaking chills and fever despite being on antibiotics and so decided to come in. Per , who is at bedside, peak temperature was 99.5 F, although he had taken a Tylenol before that measurement was obtained In the emergency room, vitals notable only for tachycardia to the 100s-110s. WBC was elevated at 11.91 with neutrophilic predominance, ESR was elevated at 98, more than 3 times his previous high. Sodium-128, creatinine-1.45 (b/l 0.9- 1.1), serum glucose of 234. COVID-19 and nasal MRSA swabs were negative. EKG showed sinus tachycardia with no ST segment abnormalities. CXR was negative for acute infectious process, per my read. Per my read, XR right foot showed possible degenerative changes of fifth metatarsal laterally. Was unable to appreciate soft tissue swelling. After blood cultures were drawn, he received an NS bolus x1 L, as well as a loading dose of IV vancomycin 1.5 g, plus an additional 0.75 g. He also received 2 g of IV cefepime and hospitalist was consulted for admission. On admission, he corroborates HPI as above. ROS + mild headache, nasal congestion, reduced appetite and p.o. intake. He denies nausea, vomiting, pain, sore throat, chest pain, shortness of breath, or pedal edema. Allergies Allergy/AdvReac Type Severity Reaction Status Date / Time Penicillins Allergy Severe THROAT Verified 11/13/22 00:56 SWELLING WITH BLISTERS linezolid Allergy Unknown tongue Verified 11/13/22 00:56 swelling,ITCHY Home Medications Medication Instructions Recorded Confirmed Type empagliflozin 25 mg tablet 25 mg PO QAM 07/31/20 11/13/22 History (Jardiance) acetaminophen 500 mg tablet 1,000 mg PO Q8 PRN fever or pain 09/30/21 11/13/22 Rx (Tylenol Extra Strength) #30 tabs metoprolol succinate 25 mg 25 mg PO QAM #30 tabs 10/01/21 11/13/22 Rx tablet,extended release 24 hr insulin glargine 100 unit/mL (3 34 unit subcut QAM 10/13/22 11/13/22 History mL) subcutaneous pen (Basaglar KwikPen U-100 Insulin) tirzepatide 2.5 mg/0.5 mL 2.5 mg subcut .Weekly 10/13/22 11/13/22 History subcutaneous pen injector (Mounkamrynro) sulfamethoxazole 800 1 tab PO BID 14 days #28 tabs 11/09/22 11/13/22 Rx mg-trimethoprim 160 mg tablet (Bactrim DS) Past Med/Surg History Medical History Acid reflux "MILD" Atrial fibrillation On Eliquis Diabetes Hx of gout Neuropathy RT LEG Surgical History H/O knee surgery RT/LEFT History of appendectomy History of herniorrhaphy History of nasal cauterization History of tonsillectomy and adenoidectomy S/P foot surgery, right [place] teeth removed Family History Father Family history of diabetes mellitus Father Muscular dystrophy Other No family history of adverse response to anesthesia Social History Smoking Status: Never smoker Tobacco Type: Smokeless Tobacco (Dip or Chew) Age Started Using Tobacco: 12; Cigarettes Per Day: ~1 can daily; Second Hand Exposure: No; Do You Dip or Chew Tobacco: Yes; Tobacco Cessation Education Requested by Patient: No Hx Alcohol Use: No Hx Substance Use: No Preferred Language: Kinyarwanda Communication Ability: Effective Visual Impairment: Limited Hearing Ability: Use of Hearing Aid Decatizer Required: No Beliefs That Will Affect Care: None marital status: Current Living Situation: Spouse Current Living Situation Comment: 2 story home with current occupational status: retired and disabled How many Children do You have: 3 How many Children do You have Comment: works, able to assist a little. Pt independent with care at this time. Other Information That Helps Us Care for You: No Feels Safe at Home: Yes Safety Concerns: Feels Safe At This Time Diet: regular during the past year weight has: remained stable Gender Identity: Male Assistive Devices: Crutches, Glasses and Special Shoe Review of Systems Review of Systems: All systems reviewed & are unremarkable except as noted in HPI & below Physical Exam Physical Exam: General: No acute distress HEENT: PERRLA. Normal conjunctiva, anicteric sclera. Oropharynx normal. Respiratory: Normal respiratory effort, CTABL. Cardiovascular: Tachycardic rate. Regular rhythm. No murmurs, gallops, or rubs. No pedal edema. GI: Soft abdomen with normal bowel sounds heard on auscultation. Nontender x4 quadrants Foot (right): Warm to the touch. 3 ulcers of right foot (healing medial plantar stage II ulcer measuring approximately 2.5 x 1.4 cm; lateral stage II/III ulcer approximately 2 cm in diameter with frankly expressed pus on palpation; healed, blackened surface ulcer on dorsal surface of fourth digit). Slight erythema adjacent to lateral ulcer Neuro: Alert and oriented x3. 5/5 strength bilaterally at hip, knee, and ankle. Results & Data Results & Data Vital Signs (Past 12 Hours) Vital Signs Temp Pulse Pulse Resp BP BP Pulse Ox 11/13/22 03:16 37.3 C 111 H 20 123/67 97 11/13/22 03:00 102 H 18 95 11/13/22 03:00 133/71 11/13/22 02:50 104 H 18 95 11/13/22 03:10 11/13/22 02:45 101 H 11/13/22 02:40 101 H 18 96 11/13/22 02:30 102 H 18 96 11/13/22 02:20 103 H 19 97 11/13/22 02:10 103 H 18 98 11/13/22 02:00 105 H 17 97 11/13/22 02:00 157/107 H 11/13/22 01:50 106 H 18 98 11/13/22 01:43 112 H 22 98 11/13/22 01:30 103 H 20 98 11/13/22 01:20 104 H 18 98 11/13/22 01:10 106 H 23 98 11/13/22 01:00 104 H 21 99 11/13/22 01:00 138/73 11/13/22 00:50 104 H 20 98 11/13/22 00:40 106 H 20 97 11/13/22 00:30 107 H 20 97 11/13/22 00:22 107 H 21 98 11/13/22 00:22 127/72 11/13/22 00:20 107 H 16 99 11/13/22 00:10 106 H 17 98 11/13/22 00:00 106 H 20 97 11/12/22 23:50 110 H 18 97 11/12/22 23:40 111 H 21 98 11/12/22 23:30 113 H 23 96 11/12/22 23:20 110 H 20 95 11/12/22 23:10 109 H 19 97 11/12/22 23:00 114 H 21 96 11/12/22 22:54 115 H 17 96 11/12/22 22:54 128/68 11/12/22 22:52 113 H 24 11/12/22 22:59 113 H 11/12/22 22:59 97 11/12/22 22:39 37.8 C H 117 H 20 124/66 97 O2 Del Method 11/13/22 03:16 Room Air 11/13/22 03:00 11/13/22 03:00 11/13/22 02:50 11/13/22 03:10 Room Air 11/13/22 02:45 11/13/22 02:40 11/13/22 02:30 11/13/22 02:20 11/13/22 02:10 11/13/22 02:00 11/13/22 02:00 11/13/22 01:50 11/13/22 01:43 11/13/22 01:30 11/13/22 01:20 11/13/22 01:10 11/13/22 01:00 11/13/22 01:00 11/13/22 00:50 11/13/22 00:40 11/13/22 00:30 11/13/22 00:22 11/13/22 00:22 11/13/22 00:20 11/13/22 00:10 11/13/22 00:00 11/12/22 23:50 11/12/22 23:40 11/12/22 23:30 11/12/22 23:20 11/12/22 23:10 11/12/22 23:00 11/12/22 22:54 11/12/22 22:54 11/12/22 22:52 11/12/22 22:59 11/12/22 22:59 Room Air 11/12/22 22:39 Room Air Supervising Physician Co-Signing Physician Notes Attending addendum: I have physically seen this patient, have supervised the medical residents activities, and agree with the H&P unless as otherwise noted. Assessment and Plan: Diabetic right foot ulcer- History of wound culture with MSSA Recent injury on 11/13, followed by wound care, on Bactrim for 4 days Received vancomycin IV and cefepime IV in ED and will continue MRI of foot pending to assess for osteomyelitis Consult to podiatry Follow serial CBC with differential and basic metabolic panel Diabetes mellitus type 2- Chronically poorly controlled Glucose 234 at admission Continue outpatient medications as noted with additional Lantus dosing this evening Placed on Accu-Cheks with NovoLog SSI Remaining orders and notations as noted Resident Activity Tracking Resident Involvement: Resident Care Provided Care Provided: Adult Hospital Medicine
[2022-11-13 04:44] LABS: C Reactive Protein 6.87 mg/dl (0-0.5)
[2022-11-13] MEDS: ACETAMINOPHEN 500 MG TAB PO PRN ×2 (05:11→22:32)
--- NOTE | 2022-11-13 07:38 | Electrocardiogram Report ---
Test Reason : Blood Pressure : / mmHG Vent. Rate : 114 BPM Atrial Rate : 114 BPM P-R Int : 152 ms QRS Dur : 074 ms QT Int : 292 ms P-R-T Axes : -05 018 031 degrees QTc Int : 402 ms Sinus tachycardia Otherwise normal ECG When compared with ECG of 31-JUL-2009 12:09, Vent. rate has increased BY 49 BPM Confirmed by Damian Oseguera ([id number]) on 11/13/2022 7:37:53 AM Referred By: REFERRED SELF Confirmed By:Mark Oseguera
[2022-11-13 08:30] LABS: BUN Creatinine Ratio 22.4 (10-20); Calcium 8.6 mg/dl (8.6-10.3); Est GFR (African American) 77.8 ml/min; Est GFR (Non-African American) 67.1 ml/min; Potassium 4.3 mmol/L (3.5-5.1)
[2022-11-13 08:46] LABS: Estimated Average Glucose 214 mg/dl; Hemoglobin A1C 9.1 % (4.5-5.6)
--- NOTE | 2022-11-13 08:53 | XRay Report ---
XR chest 1V portable CLINICAL HISTORY: Sepsis TECHNIQUE: Single frontal radiograph of the chest was obtained. Comparison: None available at the time of this dictation. FINDINGS: No lines and tubes are seen. The cardiomediastinal silhouette is normal. The lungs are clear. No evid ence of pleural effusion or pneumothorax. IMPRESSION: No acute abnormalities and in particular no radiographic evidence of pneumonia. ACT 112: Negative or not required by law. Electronically signed by: Vernon Hinds M.D. 11/13/2022 8:52 AM
[2022-11-13] MEDS: INSULIN ASPART PER UNIT CHARGE SC SCH ×4 (09:27→21:14)
[2022-11-13] MEDS: VANCOMYCIN HCL 750 MG in SODIUM CHLORIDE 0.9% 250 ML IV SCH ×2 (09:27→19:40)
--- NOTE | 2022-11-13 09:39 | XRay Report ---
XR foot RT min 3V routine CLINICAL HISTORY: r/o osteo TECHNIQUE: 3 views of the right foot were obtained. Comparison: Comparison is made to foot radiographs 08/05/2022 FINDINGS: Patient is status post mid metatarsal resection of the first digit. There is focal bony erosion at th e base of the fifth metatarsal at the site of the ulcer. Reactive bone formation is noted. No lucency is seen at the site of the medial superior. Degenerative changes are seen. Diffuse soft tissue swell ing is seen with medial and lateral mid foot ulcers. IMPRESSION: Osteomyelitis is seen underlying the lateral ulcer involving the base of the fifth metatarsal. Medial ulcer is without radiographic evidence of osteomyelitis. ACT 112: Negative or not required by law. Electronically signed by: Vernon Hinds M.D. 11/13/2022 9:37 AM
[2022-11-13] MEDS: LANTUS PER UNIT CHARGE SQ SCH ×2 (09:41→15:03)
[2022-11-13] MEDS: FLUTICASONE PROPIONATE NA SPR 16 GM BTL SCH (09:42)
[2022-11-13] MEDS: METOPROLOL SUCC 25MG EXT REL TAB PO SCH (09:43)
[2022-11-13] MEDS: ENOXAPARIN INJ 40 MG/0.4 ML SYR SQ SCH (09:43)
--- NOTE | 2022-11-13 10:30 | Hospitalist Progress Note ---
Date of Service November 13, 2022 Assessment & Plan (1) Diabetic peripheral neuropathy associated with type 2 diabetes mellitus: Plan: 62 M with PMH of history of DM2 and associated Charcot neuropathy (s/p great toe amputation of right foot, multiple diabetic foot infections, previous osteomyelitis), AF, hyperlipidemia, hypertension, who presented to the ED for worsening ulcer of lateral right foot. Diabetic peripheral neuropathy/right foot ulcer -Initial injury on 11/03, follows with wound care, wound culture MSSA. Refractory to Bactrim x4 days -Afebrile, slight leukocytosis (11.91) on admission. ESR-98, CRP-6.87. -XR foot showed osteomyelitis underlying the base of the 5th metatarsal (correlating to lateral ulcer) -MRI pending -switched zosyn to cefepime d/t concern for kidney injury -continue vanco despite MRSA nares neg -blood cx pending, wound cx showed rare gram pos cocci -podiatry consulted Uncontrolled type 2 diabetes -Managed on Lantus 34 units daily, Jardiance 25 mg every morning, Mounjaro 2.5 mg SQ every Monday. -A1c upon admission 9.1% * Holding PO antihyperglycemics * Lantus 30 units every morning, SSI coverage per protocol * ACHS glucose checks -Pt would benefit from extensive discussion of effects of DM and how to better manage Paroxysmal atrial fibrillation -Acute; s/p electrocardioversion in September 2022. No prior history of A-fib outside of sepsis or bacteremia episode. -Was started on anticoagulation. However, patient stopped taking few months ago as he felt he did not have true A-fib; however, he continued to take metoprolol. -Irregularly irregular heartbeats with HR's in the 100s-110s on admission. -Continue metoprolol 25 mg every morning -Would benefit from discussion concerning anticoagulation Hyponatremia -128 upon admission; usual baseline 132-135. -Suspect infection, hyperglycemia, poor p.o. intake, as opposed to true hyponatremia. Expect sodium level to return to baseline as blood glucose is controlled. -132 on AM labs Hypertension -Chronic; managed on metoprolol succinate 25 mg every morning Code: Full code Dispo: Med-Surg FEN/GI: Carb consistent DVT Prophylaxis: Lovenox 40 mg q24h Consults: Podiatry (2) Diabetic ulcer of right foot: (3) Acute hyponatremia: (4) Diabetes mellitus, type 2: (5) Essential hypertension: (6) Mixed hyperlipidemia: Admission and Anticipated Discharge Date Admission Date: November 13, 2022 Supervising Physician Co-Signing Physician Notes I personally examined the patient and verified all torres points of history and exam, discussed case, and agree with decision making with Dr Lincoln. No pain, awaiting MRI results. Discussed dietabout 6-7 weeks ago he drastica lly changed his diet and sounds like he is now very low in simple carbs. Vitals noted, in general he is awake and alert pleasant no distress. Breathing unlabored no accessory muscle use good effort. Foot dressed. No tracking erythema beyond the dressing. MRI images reviewed, but without a report, not really able to draw any meaningful conclusions. Diabetic foot infectionbroad antibiotics for now, podiatry eval. Await MRI. Uncontrolled diabetesdiscussed high sugars clog arteries, discussed type 2 diabetes being predominantly a lifestyle driven illnessdiscussed that his current lifestyle changes sound like they are extremely promisingencouraged him to check postprandial glucoses to ensure he is not missing highs, but it sounds like his A1c of 9.1 might be on the way down. DVT prophylaxisLovenox Subjective Pt states he feels fine this AM. He notes that he thinks he broke his toe when he dropped a log on it. He reports feeling chills at home and he was prompted to come in by his family members. Otherwise, he denies chest pain, SOB. Review of Systems Review of Systems: As per HPI Physical Exam Physical Exam: Constitutional: well appearing, no acute distress HEENT: normocephalic, no conjunctival injection CV: RRR, no murmur, no LE edema Respiratory: CTA bilaterally. No rhonchi, wheezes, or crackles. No increased work of breathing Right foot: 3 wounds noted. Medial wound ~2cm appears erythematous/pink w/o purulence. Lateral wound ~2cm in size with leanne pus and surrounding erythema. Healed, blackened wound of dorsal surface of 4th digit. Pedal pulse 2+. Neuro: alert, oriented, no FND noted Psych: mood and affect congruent Results & Data Results & Data Vital Signs (Past 12 Hours) Vital Signs Temp Pulse Pulse Resp BP BP BP 11/13/22 08:12 37.4 C 102 H 16 127/72 11/13/22 03:16 37.3 C 111 H 20 123/67 11/13/22 03:00 102 H 18 11/13/22 03:00 133/71 11/13/22 02:50 104 H 18 11/13/22 03:10 11/13/22 02:45 101 H 11/13/22 02:40 101 H 18 11/13/22 02:30 102 H 18 11/13/22 02:20 103 H 19 11/13/22 02:10 103 H 18 11/13/22 02:00 105 H 17 11/13/22 02:00 157/107 H 11/13/22 01:50 106 H 18 11/13/22 01:43 112 H 22 11/13/22 01:30 103 H 20 11/13/22 01:20 104 H 18 11/13/22 01:10 106 H 23 11/13/22 01:00 104 H 21 11/13/22 01:00 138/73 11/13/22 00:50 104 H 20 11/13/22 00:40 106 H 20 11/13/22 00:30 107 H 20 11/13/22 00:22 107 H 21 11/13/22 00:22 127/72 11/13/22 00:20 107 H 16 11/13/22 00:10 106 H 17 11/13/22 00:00 106 H 20 11/12/22 23:50 110 H 18 11/12/22 23:40 111 H 21 11/12/22 23:30 113 H 23 11/12/22 23:20 110 H 20 11/12/22 23:10 109 H 19 11/12/22 23:00 114 H 21 11/12/22 22:54 115 H 17 11/12/22 22:54 128/68 11/12/22 22:52 113 H 24 11/12/22 22:59 113 H 11/12/22 22:59 11/12/22 22:39 37.8 C H 117 H 20 124/66 Pulse Ox O2 Del Method 11/13/22 08:12 97 Room Air 11/13/22 03:16 97 Room Air 11/13/22 03:00 95 11/13/22 03:00 11/13/22 02:50 95 11/13/22 03:10 Room Air 11/13/22 02:45 11/13/22 02:40 96 11/13/22 02:30 96 11/13/22 02:20 97 11/13/22 02:10 98 11/13/22 02:00 97 11/13/22 02:00 11/13/22 01:50 98 11/13/22 01:43 98 11/13/22 01:30 98 11/13/22 01:20 98 11/13/22 01:10 98 11/13/22 01:00 99 11/13/22 01:00 11/13/22 00:50 98 11/13/22 00:40 97 11/13/22 00:30 97 11/13/22 00:22 98 11/13/22 00:22 11/13/22 00:20 99 11/13/22 00:10 98 11/13/22 00:00 97 11/12/22 23:50 97 11/12/22 23:40 98 11/12/22 23:30 96 11/12/22 23:20 95 11/12/22 23:10 97 11/12/22 23:00 96 11/12/22 22:54 96 11/12/22 22:54 11/12/22 22:52 11/12/22 22:59 11/12/22 22:59 97 Room Air 11/12/22 22:39 97 Room Air Resident Activity Tracking Resident Involvement: Resident Care Provided Care Provided: Adult Hospital Medicine
[2022-11-13] MEDS: CEFEPIME 2,000 MG in SYRINGE 0 ML IV SCH ×2 (14:01→19:40)
[2022-11-13] MEDS: CALCIUM CARBONATE 500 MG CHEWABLE TAB PO PRN ×2 (20:00→22:10)
--- NOTE | 2022-11-13 20:51 | Billing Data ---
Date of Service November 13, 2022 Coding Level of Care Code 71754 INT INP/OBS CARE
--- NOTE | 2022-11-13 21:26 | Orthopedic Consultation ---
Date of Consultation November 13, 2022 Assessment & Plan (1) Diabetic ulcer of right foot: Patient seen, evaluated, and treated. I personally reviewed MRI images. Discussed (+)OM to fifth met base with Patient who elects for surgical care. Patient placed on Add-on for 11/13/22 and made NPO past midnight. Thank you for allowing me to participate in the care of this Patient. (2) Diabetic infection of right foot: (3) Diabetes mellitus, type 2: (4) Personal history of diabetic foot ulcer: History of Present Illness Attending Physician: Fredy Vegas DO History of Present Illness Patient is a type II diabetic, 62-year-old man seen at bedside for diabetic right foot ulcers. Patient has a past medical history significant for DM2, Charcot arthropathy, peripheral neuropathy with multiple diabetic foot infections, previous osteomyelitis, hypertension. Patient being treated at [facility] with weekly appointments. Previous right foot wound was cultured and positive for oxacillin-sensitive Staph aureus. He was started on Bactrim twice daily and, on presentation to the emergency room on 11/12/22, and had completed 4 days of the course. MRI taken today is positive for fifth metatarsal base. Patient started on vancomycin IV and cefepime IV. Allergies Allergy/AdvReac Type Severity Reaction Status Date / Time Penicillins Allergy Severe THROAT Verified 11/13/22 00:56 SWELLING WITH BLISTERS linezolid Allergy Unknown tongue Verified 11/13/22 00:56 swelling,ITCHY Home Medications Medication Instructions Recorded Confirmed Type empagliflozin 25 mg tablet 25 mg PO QAM 07/31/20 11/13/22 History (Jardiance) acetaminophen 500 mg tablet 1,000 mg PO Q8 PRN fever or pain 09/30/21 11/13/22 Rx (Tylenol Extra Strength) #30 tabs metoprolol succinate 25 mg 25 mg PO QAM #30 tabs 10/01/21 11/13/22 Rx tablet,extended release 24 hr insulin glargine 100 unit/mL (3 34 unit subcut QAM 10/13/22 11/13/22 History mL) subcutaneous pen (Basaglar KwikPen U-100 Insulin) tirzepatide 2.5 mg/0.5 mL 2.5 mg subcut .Weekly 10/13/22 11/13/22 History subcutaneous pen injector (Faith) sulfamethoxazole 800 1 tab PO BID 14 days #28 tabs 11/09/22 11/13/22 Rx mg-trimethoprim 160 mg tablet (Bactrim DS) Patient History Medical History Acid reflux "MILD" Atrial fibrillation On Eliquis Diabetes Hx of gout Neuropathy RT LEG Surgical History H/O knee surgery RT/LEFT History of appendectomy History of herniorrhaphy History of nasal cauterization History of tonsillectomy and adenoidectomy S/P foot surgery, right [place] teeth removed Family History Father Family history of diabetes mellitus Father Muscular dystrophy Other No family history of adverse response to anesthesia Social History Smoking Status: Never smoker Tobacco Type: Smokeless Tobacco (Dip or Chew) Age Started Using Tobacco: 12; Cigarettes Per Day: ~1 can daily; Second Hand Exposure: No; Do You Dip or Chew Tobacco: Yes; Tobacco Cessation Education Requested by Patient: No Hx Alcohol Use: No Hx Substance Use: No Preferred Language: Kazakh Communication Ability: Effective Visual Impairment: Limited Hearing Ability: Use of Hearing Aid Gate Mortiser Operator Required: No Beliefs That Will Affect Care: None marital status: Current Living Situation: Spouse Current Living Situation Comment: 2 story home with current occupational status: retired and disabled How many Children do You have: 3 How many Children do You have Comment: works, able to assist a little. Pt independent with care at this time. Other Information That Helps Us Care for You: No Feels Safe at Home: Yes Safety Concerns: Feels Safe At This Time Diet: regular during the past year weight has: remained stable Gender Identity: Male Assistive Devices: Crutches, Glasses and Special Shoe Review of Systems Review of Systems: All systems reviewed & are unremarkable except as noted in Subjective Physical Exam Constitutional: well developed, well nourished, cooperative and comfortable Eyes: normal visual martell by confrontation Neck: normal visual inspection and trachea midline Respiratory: normal respiratory effort Cardiovascular: Rate/Rhythm: regular rate and regular rhythm Vessels: posterior tibial pulses present and dorsalis pedis pulses present Musculoskeletal: Extremities: + foot abnormality (Absent right first ray secondary to surgical care) Skin: + ulcer (Right full thickness 5th met base, 5th toe, medial arch DFU), + subcutaneous nodules and + erythema Neurologic: moves all extremities (Absent epicritic sensation) Psychiatric: Orientation: alert and oriented x 3 Results & Data Vital Signs (Past 12 Hours) Vital Signs Temp Pulse Resp BP Pulse Ox O2 Del Method 11/13/22 20:28 37.1 C 122 H 18 139/73 97 Room Air 11/13/22 16:40 36.8 C 11/13/22 15:15 36.8 C 98 H 16 136/80 99 Room Air Diagnostic Findings AGUILAR URIBE [id number] Allergy/Adv: Penicillins, linezolid Close Foot MRI 11/13/22 Foot X-Ray (Signed) Vernon Hinds - 11/12/22 Chest X-Ray (Signed) Vernon Hinds - 11/12/22 Magnetic Resonance Imaging (MRI) Rpt Rc Vargas MD Ulbrecht, Jan S., MD - 10/19/22 Outside Magnetic Resonance Imaging (MRI) 10/19/22 Foot X-Ray 08/05/22 Toe X-Ray (Signed) Vernon Hinds - 09/28/21 Foot X-Ray 09/15/21 Foot X-Ray (Signed) Vernon Hinds - 08/26/21 Vascular Duplex Study Rpt Damian Lynch MD 08/26/21 Chest X-Ray 08/18/21 Outside Magnetic Resonance Imaging (MRI) 07/07/21 [place], [place] [phone] XRay Report Patient:AGUILAR URIBE Admit Date:11/13/22 MR#:[id number] Address1:[address] [place] [address] Acct ID:[id number] Address2: [address] Date:1960 [facility] Zip:[place] [address] Age:62 Location:3E Sex:M Room/Bed:[facility] Att Phy:Fredy Vegas D.O. Diagnosis:DIABETIC ULCER OF RIGHT FOOT Nasreen Phy:Cristofer Patel MD Service Date:11/12/22 Fam Phy: Interpreting Phy:Vernon Hinds MDAdmit Phy:Emily Scott MD Ordering Phy:Triston Cervantes, cc: ~ XR foot RT min 3V routine CLINICAL HISTORY: r/o osteo TECHNIQUE: 3 views of the right foot were obtained. Comparison: Comparison is made to foot radiographs 08/05/2022 FINDINGS: Patient is status post mid metatarsal resection of the first digit. There is focal bony erosion at the base of the fifth metatarsal at the site of the ulcer. Reactive bone formation is noted. No lucency is seen at the site of the medial superior. Degenerative changes are seen. Diffuse soft tissue swelling is seen with medial and lateral mid foot ulcers. IMPRESSION: Osteomyelitis is seen underlying the lateral ulcer involving the base of the fifth metatarsal. Medial ulcer is without radiographic evidence of osteomyelitis. ACT 112: Negative or not required by law. Electronically signed by: Vernon Hinds M.D. 11/13/2022 9:37 AM Dictated:11/13/22 0931 Transcribed: 11/13/22 0931
--- NOTE | 2022-11-13 21:58 | Magnetic Resonance Report ---
MR foot RT w/o con CLINICAL HISTORY: r/o osteomyelitis TECHNIQUE: Multiplanar multisequence MR images of the right foot were obtained. Comparison: Comparison is made to right foot radiograph 11/12/2022 FINDINGS: Bony edema is seen in the fifth metatarsal compatible with osteomyelitis. Mild edema is also seen in the third metatarsal head and midshaft. No edema is seen in the first metatarsal. There is extensive soft tissue swelling compatible cellulitis. IMPRESSION: Findings compatible with 50 metatarsal base osteomyelitis with associated cellulitis and ulcer. No fi rst digit osteomyelitis is seen. Mild edema in the third metatarsal may be reactive due to degenerati ve change or represent osteomyelitis as well. ACT 112: Negative or not required by law. Electronically signed by: Vernon Hinds M.D. 11/13/2022 9:56 PM
[2022-11-13 22:29] LABS: A calco-baum cmplx NotReported Not Detected (NotDetected); Bact fragilis Not Reported Not Detected (NotDetected); C auris Not Reported Not Detected (NotDetected); Calbicans Not Reported Not Detected (NotDetected); Candida glabrata Not Reported Not Detected (NotDetected); Candida krusei Not Reported Not Detected (NotDetected); Cneoformans/gatti Not Reported Not Detected (NotDetected); Cparapsilosis Not Reported Not Detected (NotDetected); Ctropicalis Not Reported Not Detected (NotDetected); E cloacae compx Not Reported Not Detected (NotDetected); Efaecalis Not Reported Not Detected (NotDetected); Efaecium Not Reported Not Detected (NotDetected); Enterobacterales Not Reported Not Detected (NotDetected); Escherichia coli Not Reported Not Detected (NotDetected); H influenzae Not Reported Not Detected (NotDetected); K aerogenes Not Reported Not Detected (NotDetected); Koxytoca Not Reported Not Detected (NotDetected); Kpneumoniae grp Not Reported Not Detected (NotDetected); Lmonocyt Not Reported Not Detected (NotDetected); N meningitidis Not Reported Not Detected (NotDetected); P aeruginosa Not Reported Not Detected (NotDetected); Proteus spp Not Reported Not Detected (NotDetected); Salmonella spp Not Reported Not Detected (NotDetected); Smarcescens Not Reported Not Detected (NotDetected); Staph lugdunensis Not Reported Not Detected (NotDetected); Staph spp. Not Reported DETECTED (NotDetected); Staphaureus Not Reported DETECTED (NotDetected); Staphepi Not Reported Not Detected (NotDetected); Staphylococcus spp. DETECTED (NotDetected); Stenmaltophilia Not Reported Not Detected (NotDetected); Strep agal(GrpB) Not Reported Not Detected (NotDetected); Strep pneum Not Reported Not Detected (NotDetected); Strep pyog (GrpA) Not Reported Not Detected (NotDetected); Strep spp Not Reported Not Detected (NotDetected); mecAC+MREJ Resistant Gene MRSA Not Detected (NotDetected)
[2022-11-14 01:04] LABS: BUN Creatinine Ratio 15.5 (10-20); Calcium 8.8 mg/dl (8.6-10.3); Creatinine Clr Calc Pharmacy 59.4 ml/min; Est GFR (African American) 68.4 ml/min; Magnesium 1.9 mg/dl (1.7-2.4); Potassium 4.3 mmol/L (3.5-5.1)
[2022-11-14] MEDS: CEFEPIME 2,000 MG in SYRINGE 0 ML IV SCH ×3 (04:30→20:31)
[2022-11-14 05:52] LABS: Hematocrit (blood only) 38.7 % (42.0-52.0); Hemoglobin 13.2 g/dl (14.0-18.0); Mean Corpuscular Hemoglobin 27.9 pg (25.0-34.0); Mean Corpuscular Hgb Conc 34.1 g/dL (32.0-36.0); Mean Corpuscular Volume 81.8 fL (80.0-100.0); Mean Platelet Volume 9.6 fL (9.4-12.4); Platelet Count 316 K/uL (130-400); RDW Coefficient of Variation 13.1 % (11.5-14.5); RDW Standard Deviation 39.2 fL (36.4-46.3); Red Blood Count 4.73 M/uL (4.70-6.10); White Blood Count 9.71 K/ul (4.8-10.8)
[2022-11-14 06:03] LABS: BUN Creatinine Ratio 17.9 (10-20); Calcium 9.5 mg/dl (8.6-10.3); Chol HDL Ratio 3.8 (0-5); Creatinine Clr Calc Pharmacy 65.5 ml/min; Est GFR (Non-African American) 66.4 ml/min; Potassium 4.4 mmol/L (3.5-5.1)
[2022-11-14] MEDS: INSULIN ASPART PER UNIT CHARGE SC SCH ×4 (07:17→20:55)
[2022-11-14] MEDS ORDERED: VANCOMYCIN LEVEL ONE (07:30)
[2022-11-14] MEDS: VANCOMYCIN HCL 750 MG in SODIUM CHLORIDE 0.9% 250 ML IV SCH (08:57)
[2022-11-14] MEDS: FLUTICASONE PROPIONATE NA SPR 16 GM BTL SCH (09:00)
[2022-11-14] MEDS: ENOXAPARIN INJ 40 MG/0.4 ML SYR SQ SCH (09:01)
[2022-11-14] MEDS: METOPROLOL SUCC 25MG EXT REL TAB PO SCH (09:01)
--- NOTE | 2022-11-14 09:32 | Pharmacy Report ---
Pharmacy PK ABX Note - Date of Service November 14, 2022 - Assessment and Plan Assessment 11/14: * Random vancomycin level came back at ~10 mcg/ml - current vancomycin dosing of 750 mg iv q 12 hours is associated with AUC/JUVE of ~400. Will increase vancomycin dosing to 1000 mg iv q 12 hours to target upper end of AUC/JUVE goal due to indication of bone/joint infection. Blood cultures 06/08 suggestive of MSSA per PCR testing. Foot culture prelim with staph species. Continues on vancomycin/cefepime for now - I&D planned for today. Of note, patient previously on bactrim prior to hospitalization 11/13: * 62 year old M receiving Vancomycin and Zosyn for treatment of diabetic foot infection. * Day #1 of antimicrobial therapy. * Low grade fever. Leukocytosis of 12k. Procal 0.09. * Blood cultures pending. Plan Vancomycin * Increase to 1000 mg iv q 12 hours today * Regimen is predicted to achieve target AUC/JUVE of 400-600 mg/L.hr * Plan to continue with vancomycin/cefepime for now pending further I&D cultures Pharmacy will continue to follow and will adjust dose/frequency as necessary. Thank you. Pharmacy has transitioned to AUC monitoring for vancomycin. AUC/JUVE is the preferred PK/PD target and is associated with decreased risk of nephrotoxicity c ompared to traditional trough targets.
[2022-11-14] MEDS: LANTUS PER UNIT CHARGE SQ SCH (09:41)
--- NOTE | 2022-11-14 14:41 | Hospitalist Progress Note ---
Date of Service November 14, 2022 Assessment & Plan (1) Diabetic peripheral neuropathy associated with type 2 diabetes mellitus: Plan: 62 M with PMH of history of DM2 and associated Charcot neuropathy (s/p great toe amputation of right foot, multiple diabetic foot infections, previous osteomyelitis), AF, hyperlipidemia, hypertension, who presented to the ED for worsening ulcer of lateral right foot. Diabetic peripheral neuropathy/right foot ulcer -Initial injury on 11/03, follows with wound care, wound culture MSSA. Refractory to Bactrim x4 days -Afebrile, slight leukocytosis (11.91) on admission. ESR-98, CRP-6.87. -XR foot showed osteomyelitis underlying the base of the 5th metatarsal (correlating to lateral ulcer) -MRI on 11/13 consistent with osteomyelitis with associated cellulitis in the R fifth metatarsal -switched zosyn to cefepime d/t concern for kidney injury -continue vanco despite MRSA nares neg -blood cx gram-positive cocci clusters in 1 out of 2 bottles, wound cx showed rare gram pos cocci -podiatry consulted, will have removal of the R fifth metatarsal in the OR on 11/14. Diabetes type 2 diabetes -Managed on Lantus 34 units daily, Jardiance 25 mg every morning, Mounjaro 2.5 mg SQ every Monday. -A1c upon admission 9.1%, though patient recently started on Mounjaro. Recommend follow-up with PCP. -Holding PO antihyperglycemics -Lantus 30 units every morning, SSI coverage per protocol -ACHS glucose checks Paroxysmal atrial fibrillation -Acute; s/p electrocardioversion in September 2022. No prior history of A-fib outside of sepsis or bacteremia episode. -Was started on anticoagulation. However, patient stopped taking few months ago as he felt he did not have true A-fib; however, he continued to take metoprolol. -Irregularly irregular heartbeats with HR's in the 100s-110s on admission. -Continue metoprolol 25 mg every morning. -We will consider restarting anticoagulation after surgery Hyponatremia -128 upon admission; usual baseline 132-135. -Suspect infection, hyperglycemia, poor p.o. intake, as opposed to true hypona tremia. Expect sodium level to return to baseline as blood glucose is controlled. -132 on AM labs Hypertension -Chronic; managed on metoprolol succinate 25 mg every morning Code: Full code Dispo: Med-Surg FEN/GI: Carb consistent DVT Prophylaxis: Lovenox 40 mg q24h Consults: Podiatry (2) Diabetic ulcer of right foot: (3) Acute hyponatremia: (4) Diabetes mellitus, type 2: (5) Essential hypertension: (6) Mixed hyperlipidemia: Admission and Anticipated Discharge Date Admission Date: November 13, 2022 Supervising Physician Co-Signing Physician Notes Attending attestation Pt seen and examined in concert with Dr. Holliday. In agreement with the documented findings as noted in the resident documentation with any exceptions or additions as noted here. Pending OR today but otherwise pain well controlled. On examination, S1/S2 nl RRR no MCG. CTAB. Abd NT/ND BS+ve DMII w/ peripheral neuropathy, multifactorial and R foot ulceration - continue abx pending BCx, WCx and procedural intervention as noted. Basal/Bolus insulin, holding outpatient regimen. [place] significant benefit from GLP-1 Paroxysmal AF - continue metoprolol, discuss AC following procedure Else see resident documentation as noted. Subjective Patient seen bedside this morning. No issues or concerns at this time. Review of Systems Review of Systems: All systems reviewed & are unremarkable except as noted in Subjective Physical Exam Physical Exam: Constitutional: well appearing, no acute distress HEENT: normocephalic, no conjunctival injection CV: RRR, no murmur, no LE edema Respiratory: CTA bilaterally. No rhonchi, wheezes, or crackles. No increased work of breathing Right foot: 3 wounds noted covered with bandages Neuro: alert, oriented, no FND noted Psych: mood and affect congruent Results & Data Results & Data Vital Signs (Past 12 Hours) Vital Signs Temp Pulse Pulse Resp BP Pulse Ox O2 Del Method 11/14/22 12:06 36.7 C 104 H 18 107/61 98 Nasal Cannula 11/14/22 11:07 98 H 11/14/22 07:07 36.7 C 96 H 18 108/66 96 Room Air 11/14/22 03:00 37.0 C 96 H 19 110/68 98 Room Air O2 Flow Rate 11/14/22 12:06 3 11/14/22 11:07 11/14/22 07:07 11/14/22 03:00 Laboratory Results 11/14/22 05:32 11/14/22 05:32 Resident Activity Tracking Resident Involvement: Resident Care Provided Care Provided: Adult Hospital Medicine
[2022-11-14] MEDS: ACETAMINOPHEN 500 MG TAB PO PRN (15:36)
--- NOTE | 2022-11-14 17:12 | Anesthesiology Consultation ---
Date of Service November 14, 2022 Assessment & Plan (1) Encounter for pre-operative examination: Chart Review Chart Review: Acceptable Risk for Surgery and Patient NOT seen in Pre Admission Testing Consults Requested none History Surgery Operation Date: 11/14/22 09:10 Proposed Procedures p Right Foot Incision and Drainage Non-viable Bone, Application of Wound Vac - Martin Jackson, ROSEMARYM, MS Height/Weight Height: 5 ft 9 in Weight: 80.7 kg Allergies Allergy/AdvReac Type Severity Reaction Status Date / Time Penicillins Allergy Severe THROAT Verified 11/13/22 00:56 SWELLING WITH BLISTERS linezolid Allergy Unknown tongue Verified 11/13/22 00:56 swelling,ITCHY Medications Home Medications Medication Instructions Recorded Confirmed Last Taken empagliflozin 25 mg tablet 25 mg PO QAM 07/31/20 11/13/22 09/28/21 08:00 (Jardiance) acetaminophen 500 mg tablet 1,000 mg PO Q8 PRN fever or pain 09/30/21 11/13/22 Unknown (Tylenol Extra Strength) #30 tabs metoprolol succinate 25 mg 25 mg PO QAM #30 tabs 10/01/21 11/13/22 Unknown tablet,extended release 24 hr insulin glargine 100 unit/mL (3 34 unit subcut QAM 10/13/22 11/13/22 11/12/22 06:00 mL) subcutaneous pen (Basaglar KwikPen U-100 Insulin) tirzepatide 2.5 mg/0.5 mL 2.5 mg subcut .Weekly 10/13/22 11/13/22 Unknown subcutaneous pen injector (Faith) sulfamethoxazole 800 1 tab PO BID 14 days #28 tabs 11/09/22 11/13/22 11/12/22 18:00 mg-trimethoprim 160 mg tablet (Bactrim DS) Active Medications Generic Name Dose Route Start Last Admin Trade Name Freq PRN Reason Stop Dose Admin Acetaminophen 1,000 mg 11/13/22 03:16 11/14/22 15:36 Acetaminophen 500 Mg Tab PO 12/13/22 03:15 1,000 mg Q8 PRN Administration fever or pain Calcium Carbonate 500 mg 11/13/22 20:00 11/13/22 22:10 Calcium Carbonate 500 Mg Chewable Tab PO 12/13/22 19:59 500 mg Q2H PRN Administration Heart Burn Enoxaparin Sodium 40 mg 11/13/22 09:00 11/14/22 09:01 Enoxaparin Inj 40 Mg/0.4 Ml Syr SQ 12/13/22 08:59 40 mg QAM JAVI Administration Fluticasone Propionate 2 sprays 11/13/22 09:00 11/14/22 09:00 Fluticasone Propionate Na Spr 16 Gm Btl NA 12/13/22 08:59 2 sprays DAILY JAVI Administration Cefepime HCl 2,000 mg/ Syringe 20 mls @ 5 mls/min 11/13/22 12:30 11/14/22 13:37 IV 12/25/22 12:29 5 mls/min Q8H JAVI Administration Protocol Insulin Aspart 0 units 11/13/22 07:30 11/14/22 12:14 Insulin Aspart Per Unit Charge SC 12/13/22 07:29 Not Given ACHS JAVI Insulin Glargine 30 units 11/13/22 09:00 11/14/22 09:41 Lantus Per Unit Charge SQ 12/13/22 08:59 30 units DAILY JAVI Administration Metoprolol Succinate 25 mg 11/13/22 09:00 11/14/22 09:01 Metoprolol Succ 25mg Ext Rel Tab PO 12/13/22 08:59 25 mg QAM JAVI Administration NPO Date Last Intake of Fluids: 11/13/22 Time Last Intake of Fluids: 22:00 Date Last Intake of Solids: 11/13/22 Time Last Intake of Solids: 22:00 Past Medical History Medical History Acid reflux "MILD" Atrial fibrillation On Eliquis Diabetes Hx of gout Neuropathy RT LEG Past Family History Family History Father Family history of diabetes mellitus Father Muscular dystrophy Other No family history of adverse response to anesthesia Past Surgical History Surgical History H/O knee surgery RT/LEFT History of appendectomy History of herniorrhaphy History of nasal cauterization History of tonsillectomy and adenoidectomy S/P foot surgery, right [place] teeth removed Social History Smoking Status: Never smoker tobacco type: smokeless tobacco Smoking cigarettes per day: ~1 can daily Do You Dip or Chew Tobacco: Yes Hx Alcohol Use: No Hx Substance Use: No substance use type: does not use Physical Exam Vital Signs Last Vital Signs Temp 98.1 F 11/14/22 12:06 Pulse 98 H 11/14/22 16:51 Resp 18 11/14/22 12:06 BP 107/61 11/14/22 12:06 Pulse Ox 98 11/14/22 12:06 O2 Del Method Nasal Cannula 11/14/22 12:06 O2 Flow Rate 3 11/14/22 12:06 Testing Laboratory Results 11/14/22 05:32 11/14/22 05:32 Hemoglobin A1c 9.1 % (4.5-5.6) H 11/13/22 07:08 11/13/22 04:00 Gram Stain - Final Foot,Right Wound Culture - Preliminary Staphylococcus species 11/12/22 22:55 Aerobic Blood Culture - Preliminary Blood Gram positive cocci clusters Anaerobic Blood Culture - Preliminary No growth in Anaerobic bottle after 24 hours. 11/12/22 22:55 Aerobic Blood Culture - Preliminary Blood No growth in Aerobic bottle after 24 hours. Anaerobic Blood Culture - Preliminary No growth in Anaerobic bottle after 24 hours. 11/14/22 11/14/22 11:32 07:09 POC Glucose 116 H 116 H
[2022-11-14] MEDS ORDERED: ATROPINE SULFATE 0.1 MG/ML 10ML SYR IV PRN (17:19)
[2022-11-14] MEDS ORDERED: fentaNYL citrate PF 100 MCG/2 ML VIAL IV PRN (17:19)
[2022-11-14] MEDS ORDERED: ONDANSETRON INJ 2 MG/ML 2 ML VIAL IV PRN (17:19)
[2022-11-14] MEDS ORDERED: ePHEDrine sulfate 50 MG/ML AMP IV PRN (17:19)
[2022-11-14] MEDS ORDERED: MIDAZOLAM HCL 1 MG/ML 2ML VIAL ONE (17:29)
[2022-11-14] MEDS ORDERED: BUPIVACAINE 0.5 % 5 MG/1 ML MPF 30ML VIAL ONE (17:29)
--- NOTE | 2022-11-14 17:36 | History & Physical Bridge Note ---
Date of Service November 14, 2022 History & Physical Bridge Note I have examined the patient, reviewed the History & Physical and in the interval since the performance of the History & Physical I have noted the following changes of clinical significance: no changes noted
[2022-11-14] MEDS ORDERED: fentaNYL citrate PF 100 MCG/2 ML VIAL ONE (17:46)
[2022-11-14] MEDS: VANCOMYCIN HCL 1,000 MG in SODIUM CHLORIDE 0.9% 250 ML IV SCH (17:51)
[2022-11-14] MEDS ORDERED: PROPOFOL IV EMULSION 10 MG/ML 20 ML VIAL IV ONE (17:59)
[2022-11-14] MEDS ORDERED: PHENYLEPHRINE HCL 10 MG/ML VIAL ONE (17:59)
--- NOTE | 2022-11-14 18:03 | Electrocardiogram Report ---
Test Reason : Blood Pressure : / mmHG Vent. Rate : 129 BPM Atrial Rate : 133 BPM P-R Int : 000 ms QRS Dur : 078 ms QT Int : 262 ms P-R-T Axes : 000 008 034 degrees QTc Int : 383 ms Atrial fibrillation with rapid ventricular response Nonspecific T wave abnormality Abnormal ECG When compared with ECG of 12-NOV-2022 22:49, Atrial fibrillation has replaced Sinus rhythm Confirmed by Damian Oseguera ([id number]) on 11/14/2022 6:02:25 PM Referred By: REFERRED SELF Confirmed By:Mark Oseguera
--- NOTE | 2022-11-14 18:42 | Post Operative Brief Note ---
Immediate Post Op Note v1 Date of Surgery November 14, 2022 Pre & Post Diagnosis Operation Date: 11/14/22 09:10 <No data on this case meets the specified criteria> I identified the patient and participated in the time-out.: Yes Procedure Operation Date: 11/14/22 09:10 <No data on this case meets the specified criteria> Surgeon Martin Jackson, LINDA, MS Yacht Captain None Estimated Blood Loss 0 Findings Consistent with Post-Op Diagnosis Consistent with preoperative diagnosis
--- NOTE | 2022-11-14 19:41 | Anesthesiology Progress Note ---
Date of Service November 14, 2022 Anesthesia Post Procedure Vital Signs Vital Signs: Temp Pulse Pulse Pulse Resp BP Pulse Ox 11/14/22 19:20 98.1 F 90 18 128/74 96 11/14/22 19:10 91 H 18 124/65 96 11/14/22 19:00 89 14 129/75 97 11/14/22 18:56 97.0 F L 91 H 16 120/73 96 11/14/22 17:11 97.5 F L 96 H 18 112/62 98 11/14/22 16:51 98 H 11/14/22 12:06 98.1 F 104 H 18 107/61 98 11/14/22 11:07 98 H 11/14/22 07:07 98.1 F 96 H 18 108/66 96 11/14/22 03:00 98.6 F 96 H 19 110/68 98 11/14/22 00:23 116 H 11/14/22 00:00 98.2 F 64 21 123/66 97 11/13/22 22:27 101.5 F H 129 H 18 133/72 96 11/13/22 23:31 98.8 F 74 11/13/22 20:28 98.8 F 122 H 18 139/73 97 O2 Del Method O2 Flow Rate 11/14/22 19:20 Room Air 11/14/22 19:10 Room Air 11/14/22 19:00 Room Air 11/14/22 18:56 Room Air 11/14/22 17:11 Room Air 11/14/22 16:51 11/14/22 12:06 Nasal Cannula 3 11/14/22 11:07 11/14/22 07:07 Room Air 11/14/22 03:00 Room Air 11/14/22 00:23 11/14/22 00:00 Room Air 11/13/22 22:27 Room Air 11/13/22 23:31 11/13/22 20:28 Room Air Transfer of Care Handoff Completed per policy Notes Mental Status: alert / awake / arousable and participated in evaluation Patient Amnestic to Procedure: Yes Nausea / Vomiting: adequately controlled Pain: adequately controlled Airway Patency, RR, SpO2: stable & adequate BP & HR: stable & adequate Hydration State: stable & adequate Anesthetic Complications: no major complications apparent and Pt Satisfied with anesthetic care
--- NOTE | 2022-11-14 21:43 | Operative Report ---
Post Operative Report Pre & Post Diagnosis Operation Date: 11/14/22 09:10 Pre-Op Diagnosis: DIABETIC ULCER OF RIGHT FOOT Post-Op Diagnosis: DIABETIC ULCER OF RIGHT FOOT I identified the patient and participated in the time-out.: Yes Procedure Operation Date: 11/14/22 09:10 Actual Procedures p Right Foot Incision and Drainage Non-viable Bone, Application of Wound Vac(Right) - Martin Jackson DPM, MS Surgeon Martin Jackson DPM, MS Net Developer With Wcf None Estimated Blood Loss 0 Findings Consistent with Post-Op Diagnosis Consistent with pre-operative diagnosis Specimens Bone from fifth metatarsal sent to pathology and microbiology Description of Procedure History of present illness: Patient is a diabetic, 62 year old male who is seen for treatment of osteomyelitis of the Right fifth metatarsal and associated diabetic foot ulcers. Patient is seen for operative care including removal of non viable bone and soft tissue to right foot with application of negative pressure therapy. All questions answered. Discussed procedure in detail and postoperative recovery. All potential risks, benefits, complications , alternatives, rehab, potential for incomplete relief of symptoms, need for further surgery, DVT, PE, , persistent pain, swelling, scarring, weakness, neurovascular, wound complications and potential for amputations were discussed with patient. Unwanted outcomes such as, but not limited to were reviewed including under correction, overcorrection, return of deformity, infection. All questions were answered. Patient has decided to proceed with procedure as indicated. Preoperative diagnosis: 1.) Diabetic ulcers right foot 2.) Osteomyelitis right fifth metatarsal Postoperative diagnosis: same Name of operation: 1.) Excision of diabetic foot ulcer 2.) Partial excision of Fifth metatarsal Right foot 3.) Application of wound vac negative pressure therapy Surgeon Dr. Jackson Net Developer With Wcf: None Anesthesia: Monitored anesthesia care Hemostasis: pneumatic ankle tourniquet Estimated blood loss: minimal Procedure in detail: Under mild sedation the patient was brought in the operating room placed on the operating table in supine position. A pneumatic ankle tourniquet was then placed about the patient's right ankle. Following IV sedation the foot was prepped scrubbed and draped in usual aseptic manner. An Esmarch bandage was utilized to exsanguinate the patient's right foot and the pneumatic ankle tourniquet was then inflated. Attention was then directed to a diabetic foot ulcer on the lateral right foot over the fifth metatarsal which easily probes to bone. The wound measures approximately 4 x 3 x 3 cm. An incision was created surrounding the diabetic foot ulcer and extending distal along the lateral foot utilizing a sharp, sterile, #15 blade. The lateral diabetic foot ulcer is excised and placed on the back table. The incision was deepened through subcutaneous tissue using sharp blunt dissection distally along the fifth metatarsal. Care was taken to identify and retract all vital neurovascular structures. All bleeders were ligated and cauterized necessary. An oscillating saw was used to create an osteotomy in the diaphysis of fifth metatarsal and the fifth metatarsal base was freed from any soft tissue attachments. The fifth metatarsal base was then excised. The osteomyelitic fifth metatarsal bone and placed on the back table. A portion of the fifth metatarsal was sent to microbiology. The remainder of the excised right fifth metatarsal was sent to pathology. 1 L of lactated Ringer was then irrigated with low flow into the wound. Further nonviable soft tissue was excised as needed. At this time negative pressure therapy was applied with a KCI wound vac to the right lateral diabetic foot wound at 125mmHg continuous. Upon completion of the procedure the diabetic foot ulcers wer dressed with dressing consisting of 4 x 4's Preston Kerlix ABD the pneumatic ankle tourniquet was deflated and a prompt hyperemic response was noted to all digits of the right foot. The Patient tolerated the procedure and anesthesia well. He was transferred to recovery room vital signs stable and vascular status intact all toes of the right foot following. Following a period of postoperative mon itoring the patient will be readmitted to floor with the continuation of all preoperative orders. Patient will return to the OR for delayed primary closure. I attest to the content of the Intraoperative Record and any orders documented therein. Any exceptions are noted below.
[2022-11-15] MEDS: ACETAMINOPHEN 500 MG TAB PO PRN (01:22)
[2022-11-15] MEDS: CEFEPIME 2,000 MG in SYRINGE 0 ML IV SCH (03:49)
[2022-11-15] MEDS ORDERED: METOPROLOL SUCC 25MG EXT REL TAB PO STA (05:24)
[2022-11-15] MEDS: VANCOMYCIN HCL 1,000 MG in SODIUM CHLORIDE 0.9% 250 ML IV SCH (05:45)
[2022-11-15] MEDS: CALCIUM CARBONATE 500 MG CHEWABLE TAB PO PRN (05:56)
[2022-11-15] MEDS ORDERED: LACTATED RINGER'S 1,000 ML IV SCH (07:00)
--- NOTE | 2022-11-15 07:12 | Hospitalist Progress Note ---
Date of Service November 15, 2022 Assessment & Plan (1) Diabetic peripheral neuropathy associated with type 2 diabetes mellitus: Plan: 62 M with PMH of history of DM2 and associated Charcot neuropathy (s/p great toe amputation of right foot, multiple diabetic foot infections, previous osteomyelitis), AF, hyperlipidemia, hypertension, who presented to the ED for worsening ulcer of lateral right foot. Diabetic peripheral neuropathy/right foot ulcer -Initial injury on 11/03, follows with wound care, wound culture MSSA. Refractory to Bactrim x4 days -Afebrile, slight leukocytosis (11.91) on admission. ESR-98, CRP-6.87. -XR foot showed osteomyelitis underlying the base of the 5th metatarsal (correlating to lateral ulcer) -MRI on 11/13 consistent with osteomyelitis with associated cellulitis in the R fifth metatarsal -Cefepime switched to Ancef due to cultures and biofire looking to be MSSA. -MRSA nares negative, DC vancomycin on 11/15. -blood cx gram-positive cocci clusters in 1 out of 2 bottles, wound cx showed rare gram pos cocci -podiatry consulted, removal of the fifth metatarsal on 11/15, wound VAC placed. Will return to the OR for delayed primary closure most likely on . Will be reevaluated by podiatry in the a.m. Diabetes type 2 diabetes -Managed on Lantus 34 units daily, Jardiance 25 mg every morning, Mounjaro 2.5 mg SQ every Monday. -A1c upon admission 9.1%, though patient recently started on Mounjaro. Recommend follow-up with PCP. -Holding PO antihyperglycemics -Lantus 30 units every morning, SSI coverage per protocol -[facility] glucose checks Paroxysmal atrial fibrillation SVT -Acute; s/p electrocardioversion in September 2022. No prior history of A-fib outside of sepsis or bacteremia episode. -Was started on anticoagulation. However, patient stopped taking few months ago as he felt he did not have true A-fib; however, he continued to take metoprolol. -Irregularly irregular heartbeats with HR's in the 100s-110s on admission. -Continue metoprolol 25 mg every morning. -We will consider restarting anticoagulation at time of discharge.. -Patient had a run of SVT that improved with Valsalva maneuver on morning of 11/15, given 1 L of LR. Converted back to sinus rhythm. -Followed with [facility] cardiology in the past, recommend follow-up with cardiology as an outpatient. Hyponatremia -128 upon admission; usual baseline 132-135. -Suspect infection, hyperglycemia, poor p.o. intake, as opposed to true hyponatremia. Expect sodium level to return to baseline as blood glucose is controlled. -132 on AM labs Hypertension -Chronic; managed on metoprolol succinate 25 mg every morning Sepsis resolved Patient had episodes of fever and tachycardia on 11/15 morning that improved with fluids and Valsalva maneuver. We will continue to monitor and should be fever free 24 hours before discharge. Code: Full code Dispo: Med-Surg FEN/GI: Carb consistent DVT Prophylaxis: Lovenox 40 mg q24h Consults: Podiatry (2) Diabetic ulcer of right foot: (3) Acute hyponatremia: (4) Diabetes mellitus, type 2: (5) Essential hypertension: (6) Mixed hyperlipidemia: (7) SVT (supraventricular tachycardia): Admission and Anticipated Discharge Date Admission Date: November 13, 2022 Supervising Physician Co-Signing Physician Notes ATTESTATION I also saw the patient and confirmed torres portions of the history and exam. I agree with the impression and plan in the resident documentation, and as summarized below. Earlier this morning, he did have a short run of apparent SVT and also atrial fibrillation. Upon our exam, the patient is napping but awakens to voice. He has no complaints. We tried to piece together his previous cardiology evaluation today -in summary, he had paroxysmal atrial fibrillation and was on systemic anticoagulation (apixaban); he may have underwent cardioversion this spring (need to confirm this), and at some point thereafter discontinued his apixaban (although I cannot tell if this was upon instruction of cardiology or on his own doing). Interestingly, while he had had episodes of atrial fibrillation in the setting of acute illness/physiologic stress, it sounds as if he was initially diagnosed on routine EKG. EXAM 144/78, 100, 18, 36.9, 98% on room air Alert and oriented. No distress. Heart regular rate and rhythm Lungs clear throughout with unlabored respirations DATA Labs White blood cell count 12.68, hemoglobin 11.8, platelet count 349 Sodium 130, potassium 3.9, BUN, creatinine 1.6 IMPRESSION & PLAN Diabetes with peripheral neuropathy, right foot ulceration Appreciate podiatry consultation Paroxysmal atrial fibrillation Continue metoprolol Try to clarify previous history Will likely recommend resuming systemic anticoagulation with further diagnotics as an outpatient Additional per resident documentation Subjective Patient was seen bedside this morning. At about 6:00 this morning patient had runs of SVT with tachycardia. Patient denies any symptoms of chest pain, palpitation, shortness of breath. Does state that he was feeling a little feverish and sweating overnight that improved with Tylenol. When evaluating later on in the day patient states that he has no issues or concerns at this time. He states that he is not having any pain after surgery. Review of Systems Review of Systems: All systems reviewed & are unremarkable except as noted in Subjective Physical Exam Physical Exam: Constitutional: well appearing, no acute distress HEENT: normocephalic, no conjunctival injection CV: RRR, no murmur, no LE edema Respiratory: CTA bilaterally. No rhonchi, wheezes, or crackles. No increased work of breathing Right foot: Right foot in cast, drainage in place Neuro: alert, oriented, no FND noted Psych: mood and affect congruent Results & Data Results & Data Vital Signs (Past 12 Hours) Vital Signs Temp Pulse Pulse Resp BP Pulse Ox O2 Del Method 11/15/22 05:10 38 C H 130 H 22 122/66 95 Room Air 11/15/22 03:46 37.2 C 111 H 20 119/67 95 Room Air 11/15/22 01:38 37.4 C 113 H 22 154/77 H 96 Room Air 11/14/22 21:58 100 H 11/14/22 23:00 36.8 C 96 H 16 132/68 97 Room Air 11/14/22 19:55 93 H 11/14/22 19:20 36.7 C 90 18 128/74 96 Room Air Resident Activity Tracking Resident Involvement: Resident Care Provided Care Provided: Adult Hospital Medicine
[2022-11-15 07:21] LABS: Hematocrit (blood only) 35.2 % (42.0-52.0); Hemoglobin 11.8 g/dl (14.0-18.0); Mean Corpuscular Hemoglobin 27.4 pg (25.0-34.0); Mean Corpuscular Hgb Conc 33.5 g/dL (32.0-36.0); Mean Corpuscular Volume 81.9 fL (80.0-100.0); Mean Platelet Volume 9.5 fL (9.4-12.4); Platelet Count 349 K/uL (130-400); RDW Coefficient of Variation 13.2 % (11.5-14.5); RDW Standard Deviation 39.8 fL (36.4-46.3); White Blood Count 12.68 K/ul (4.8-10.8)
[2022-11-15 07:32] LABS: BUN Creatinine Ratio 17.9 (10-20); Calcium 8.8 mg/dl (8.6-10.3); Creatinine Clr Calc Pharmacy 72.3 ml/min; Est GFR (African American) 86.8 ml/min; Est GFR (Non-African American) 74.8 ml/min; Potassium 3.9 mmol/L (3.5-5.1)
[2022-11-15] MEDS ORDERED: DIPHENHYDRAMINE IV PRN (08:15)
[2022-11-15] MEDS ORDERED: EPINEPHRINE 0.3 MG IM PRN (08:15)
[2022-11-15] MEDS ORDERED: HYDROCORTISONE 100 MG/2 ML IV PRN (08:15)
[2022-11-15] MEDS ORDERED: FAMOTIDINE 20 MG in SYRINGE 3 ML IV PRN (08:15)
[2022-11-15] MEDS: ENOXAPARIN INJ 40 MG/0.4 ML SYR SQ SCH (08:22)
[2022-11-15] MEDS: FLUTICASONE PROPIONATE NA SPR 16 GM BTL SCH (08:22)
[2022-11-15] MEDS: LANTUS PER UNIT CHARGE SQ SCH (08:24)
[2022-11-15] MEDS: INSULIN ASPART PER UNIT CHARGE SC SCH ×4 (08:24→20:46)
[2022-11-15] MEDS: ceFAZolin 2000MG 2,000 MG/15 ML SYR IV SCH ×2 (08:27→17:26)
--- NOTE | 2022-11-15 12:08 | Electrocardiogram Report ---
Test Reason : Blood Pressure : / mmHG Vent. Rate : 119 BPM Atrial Rate : 357 BPM P-R Int : 000 ms QRS Dur : 084 ms QT Int : 314 ms P-R-T Axes : 000 -01 034 degrees QTc Int : 441 ms Atrial fibrillation with rapid ventricular response Abnormal ECG When compared with ECG of 13-NOV-2022 22:39, No significant change was found Confirmed by Damian Oseguera ([id number]) on 11/15/2022 12:08:11 PM Referred By: REFERRED SELF Confirmed By:Mark Oseguera
--- NOTE | 2022-11-15 22:10 | Orthopedic Progress Note ---
Date of Service November 15, 2022 Assessment & Plan (1) Diabetic ulcer of right foot: Plan: Patient seen, evaluated, and treated. Patient status post day #1 right foot surgery. Wound Vac intact and running. Awaiting cultures and sensitivities from fifth metatarsal. Discussed discharge with Wound Vac and home health consulted for Vac changes. Thank you for allowing me to participate in the care of this Patient. (2) Diabetic infection of right foot: (3) Diabetes mellitus, type 2: Admission and Anticipated Discharge Date Admission Date: November 13, 2022 Subjective Patient seen and examined at bedside. Patient status post day 1 excision of nonviable bone right foot. Wound vac is intact and running as directed. Review of Systems Review of Systems: All systems reviewed & are unremarkable except as noted in Subjective Physical Exam Constitutional: cooperative and comfortable Eyes: normal visual martell by confrontation Neck: trachea midline Cardiovascular: Rate/Rhythm: regular rhythm Vessels: posterior tibial pulses present and dorsalis pedis pulses present Musculoskeletal: Extremities: + foot abnormality (Hallux amputation) Right Neurologic: moves all extremities (Absent epicritic sensation) Psychiatric: Orientation: alert and oriented x 3 Results & Data Vital Signs (Past 12 Hours) Vital Signs Temp Pulse Pulse Resp BP Pulse Ox O2 Del Method 11/15/22 19:11 36.8 C 105 H 18 127/70 98 Room Air 11/15/22 15:38 100 H 11/15/22 15:14 36.9 C 96 H 18 144/78 H 98 Room Air 11/15/22 11:22 36.8 C 93 H 18 130/75 97 Room Air
[2022-11-16] MEDS: ceFAZolin 2000MG 2,000 MG/15 ML SYR IV SCH ×3 (00:21→16:49)
--- NOTE | 2022-11-16 06:58 | Hospitalist Progress Note ---
Date of Service November 16, 2022 Assessment & Plan (1) Diabetic peripheral neuropathy associated with type 2 diabetes mellitus: Plan: 62 M with PMH of history of DM2 and associated Charcot neuropathy (s/p great toe amputation of right foot, multiple diabetic foot infections, previous osteomyelitis), AF, hyperlipidemia, hypertension, who presented to the ED for worsening ulcer of lateral right foot. Diabetic peripheral neuropathy/right foot ulcer -Initial injury on 11/03, follows with wound care, wound culture MSSA. Refractory to Bactrim x4 days -Afebrile, slight leukocytosis (11.91) on admission. ESR-98, CRP-6.87. -XR foot showed osteomyelitis underlying the base of the 5th metatarsal (correlating to lateral ulcer) -MRI on 11/13 consistent with osteomyelitis with associated cellulitis in the R fifth metatarsal -MRSA nares negative, DC vancomycin on 11/15. -blood cx and wound cx showed Staph aureus with resistance to clindamycin, erythromycin, and tetracycline. -Initially started on cefepime and transitioned to Ancef. Will transition to oral Bactrim on 11/17. -podiatry consulted, removal of the fifth metatarsal on 11/15, wound VAC placed. Plan to follow-up in 2 weeks for reevaluation. Home wound care will be set up at this time. Diabetes type 2 diabetes -Managed on Lantus 34 units daily, Jardiance 25 mg every morning, Mounjaro 2.5 mg SQ every Monday. -A1c upon admission 9.1%, though patient recently started on Mounjaro. Recommend follow-up with PCP. -Holding PO antihyperglycemics -Lantus 30 units every morning, SSI coverage per protocol -[facility] glucose checks Paroxysmal atrial fibrillation SVT -Acute; history of cardioversion, unsure exact history but most likely due to SVT rather than atrial fibrillation. -Was started on anticoagulation. However, patient stopped taking few months ago as he felt he did not have true A-fib; however, he continued to take metoprolol. -Irregularly irregular heartbeats with HR's in the 100s-110s on admission. -Patient had a run of SVT/atrial fibrillation that improved with Valsalva maneuver on morning of 11/15, given 1 L of LR. Converted back to sinus rhythm. -Patient had runs of A-fib/a flutter throughout the day on 11/16, increase metoprolol to 50 mg once a day. Discussed importance of anticoagulation with patient who is agreeable to restart Eliquis. -Followed with [facility] cardiology in the past, will consult cardiology due to persistent A-fib. Hyponatremia-resolved -128 upon admission; usual baseline 132-135. -Suspect infection, hyperglycemia, poor p.o. intake, as opposed to true hyponatremia. Expect sodium level to return to baseline as blood glucose is controlled. -Return to normal. Hypertension -Chronic; managed on metoprolol succinate 25 mg every morning -Due to recurrent episodes of tachycardia with A-fib will increase metoprolol succinate to 50 mg. Code: Full code Dispo: Med-Surg FEN/GI: Carb consistent DVT Prophylaxis: Eliquis Consults: Podiatry, cardiology (2) Diabetic ulcer of right foot: (3) Acute hyponatremia: (4) Diabetes mellitus, type 2: (5) Essential hypertension: (6) Mixed hyperlipidemia: (7) SVT (supraventricular tachycardia): Admission and Anticipated Discharge Date Admission Date: November 13, 2022 Supervising Physician Co-Signing Physician Notes ATTESTATION I also saw the patient and confirmed torres portions of the history and exam. I agree with the impression and plan in the resident documentation, and as summarized below. While yesterday morning, he did have a short run of apparent SVT and also atrial fibrillation, today he appears to be in atrial fibrillation/flutter for most of the day. His rates have been mildly elevated (mid 90s to 120s), though he seems to be asymptomatic and does not sense his elevated heart rate. We talked little bit more about his previous cardiac history -it sounds as if he had one emergent cardioversion in the emergency department at [facility], I suspect this was secondary to SVT (or maybe flutter) as he describes some vagal maneuvers performed prior to the cardioversion. Chart history described cardioversion from atrial fibrillation, although it sounds as if this may not have been the case. EXAM 147/65, 94, 18, 36.9, 10 percent room air Alert and oriented. No distress. Heart regular rate and rhythm Lungs clear throughout with unlabored respirations Wound right lateral foot examined with wound nurse who was present at the time of our exam (see photo in chart) DATA Labs WBC 10.12, hemoglobin 11.9 Sodium 135, potassium 3.9, BUN 18, creatinine 0.91 Micro Cultures from the foot show Staph aureus, sensitive to daptomycin, oxacillin, Bactrim, and vancomycin IMPRESSION & PLAN Diabetes with peripheral neuropathy, right foot ulceration Appreciate podiatry consultation Secondary closure as outpatient Home wound VAC; discussed coordination of this with wound care nurse today Paroxysmal atrial fibrillation Increase metoprolol Resume Eliquis; patient is agreeable to this today Consult cardiology for clarification of past history, recommendations, and coordination of outpatient care Additional per resident documentation Subjective Patient seen bedside this afternoon. He has no issues or concerns at this time. Denies any chest pain, palpitations, or shortness of breath despite currently being in A-fib with tachycardia. Review of Systems Review of Systems: All systems reviewed & are unremarkable except as noted in Subjective Physical Exam Physical Exam: Constitutional: well appearing, no acute distress HEENT: normocephalic, no conjunctival injection CV: Irregularly irregular rate and rhythm, no murmur, no LE edema Respiratory: CTA bilaterally. No rhonchi, wheezes, or crackles. No increased work of breathing Right foot: Examined bedside with wound nurse, picture in chart Neuro: alert, oriented, no FND noted Psych: mood and affect congruent Results & Data Results & Data Vital Signs (Past 12 Hours) Vital Signs Temp Pulse Pulse Resp BP Pulse Ox O2 Del Method 11/16/22 04:00 36.7 C 92 H 18 103/61 95 Room Air, Nasal Cannula 11/15/22 23:28 36.7 C 98 H 18 131/77 97 Room Air 11/15/22 23:03 101 H 11/15/22 19:11 36.8 C 105 H 18 127/70 98 Room Air Laboratory Results 11/16/22 06:58 11/16/22 06:58 Resident Activity Tracking Resident Involvement: Resident Care Provided Care Provided: Adult Hospital Medicine
[2022-11-16 07:26] LABS: Hematocrit (blood only) 35.7 % (42.0-52.0); Hemoglobin 11.9 g/dl (14.0-18.0); Mean Corpuscular Hemoglobin 27.5 pg (25.0-34.0); Mean Corpuscular Hgb Conc 33.3 g/dL (32.0-36.0); Mean Corpuscular Volume 82.4 fL (80.0-100.0); Mean Platelet Volume 9.6 fL (9.4-12.4); Platelet Count 363 K/uL (130-400); RDW Coefficient of Variation 12.8 % (11.5-14.5); Red Blood Count 4.33 M/uL (4.70-6.10); White Blood Count 10.12 K/ul (4.8-10.8)
[2022-11-16 07:45] LABS: BUN Creatinine Ratio 19.8 (10-20); Calcium 9.1 mg/dl (8.6-10.3); Creatinine Clr Calc Pharmacy 84.2 ml/min; Est GFR (African American) 104.3 ml/min; Potassium 3.9 mmol/L (3.5-5.1)
[2022-11-16] MEDS: INSULIN ASPART PER UNIT CHARGE SC SCH ×4 (08:30→20:34)
[2022-11-16] MEDS: LANTUS PER UNIT CHARGE SQ SCH (08:31)
[2022-11-16] MEDS: ENOXAPARIN INJ 40 MG/0.4 ML SYR SQ SCH (08:31)
[2022-11-16] MEDS: FLUTICASONE PROPIONATE NA SPR 16 GM BTL SCH (08:32)
[2022-11-16] MEDS: METOPROLOL SUCC 25MG EXT REL TAB PO SCH (08:33)
[2022-11-16] MEDS ORDERED: METOPROLOL SUCC 25MG EXT REL TAB PO ONE (13:42)
--- NOTE | 2022-11-16 14:49 | Cardiology Consultation ---
Date of Consultation November 16, 2022 Assessment & Plan (1) Atrial fibrillation with RVR: (2) Diabetic infection of right foot: (3) Sepsis: Plan Patient admitted for worsening right foot ulceration, diagnosed with osteomyelitis/sepsis with positive blood cultures. Continue IV antibiotics Underwent partial amputation of right foot with podiatry. Wound vac in place. This morning, patient had recurrent atrial fibrillation with elevated ventricular rates. Metoprolol increased to 50 mg. At time of consult, ventricular rates remain elevated. will increase metoprolol to 50 BID starting tonight. No further podiatry procedures needed at this time. Acceptable to start Eliquis 5 mg BID. Will send copay card to his pharmacy on discharge to assist with cost. Given sepsis and recurrent afib, recommend echocardiogram. Case discussed with Dr. Tate I spent a total of 50 minutes on the date of service in preparation, delivery, and documentation of the care provided to this patient, excluding any time spent in the performance of separately billed services. Meredith Bashir PA-C Department of Cardiology, [facility] This chart was completed in part utilizing Speech Voice Recognition Software. Grammatical errors, random word insertions, pronoun errors, and incomplete sentences are an occasional consequence of this system due to software limitations, ambient noise, and hardware issues. Any formal questions or concerns about the content, text, or information contained within the body of this dictation should be directly addressed to the provider for clarification. Supervising Physician Co-Signing Physician Notes Supervising Physician Attestation: I have personally performed a history and physical examination on the patient. I agree with the physician certified medical assistant's findings and plan as documented with the following additions. Subjective: Patient with generalized fatigue. Denies subjective fevers or sensation of elevated heart rate. Exam: Cardiovascular: Tachycardic, regular rhythm, no murmurs, no edema Musculoskeletal: Right foot with wound VAC in place, dressing not removed Pulmonary: Lungs clear to auscultation bilaterally Data: Telemetry reveals onset of atrial fibrillation this morning, 11/16/2022 at 918, in the interim time, atrial fibrillation with mildly elevated ventricular rate noted at rest, most recently rate 112 bpm. Faster rates noted with physical act ivity. Assessment and Plan: Recurrent atrial fibrillation, mildly elevated ventricular rate Sepsis,MSSA bacteremia, osteomyelitis -MSSA noted on wound culture sent 09/06 blood cultures -Increase metoprolol succinate to 50 mg twice daily for rate control -Case reviewed with Dr Jackson who was agreeable to the addition of anticoagulation from a surgical standpoint. -Start Eliquis for stroke prophylaxis, 5 mg , first dose now, second dose on 11/16/22 at 9 am. -proceed with transthoracic ecocardiogram. DVT prophylaxis: SQ lovenox stopped in favor of full dose anticoagulation with Eliquis. Jeet Tate, DO History of Present Illness Reason for Consultation: Atrial fibrillation Requesting Physician: Dr. Palomo Attending Physician: Dr. Tate History of Present Illness Patient is a 62 year old male, known to [facility] cardiology (Dr. Gonzalez in Jul 2021 with single visit, and in [address] Tate). History includes: 1. Paroxysmal atrial fibrillation, first diagnosed during preop EKG in Jul 2021. Started on anticoagulation with Eliquis and metoprolol for rate control. Patient failed to keep f/u at that time. In 2021, patient reported he was admitted for sepsis infection and required a "shock" to his heart. This occurred at [facility]. EKG revealed atrial flutter at 171 at the time, converting to NSR. 2. Hypertension 3. Dyslipidemia 4. DM type II with foot ulcerations, peripheral neuropathy, recurrent sepsis, osteomyelitis Patient admitted to [facility] with sepsis, recurrent right foot ulceration, osteomyelitis. Blood cultures positive 2/2 growing staph aureus. Podiatry consulted and patient underwent removal of the fifth metatarsal on 11/15, wound VAC placed. This morning patient developed recurrent atrial fibrillation with elevated rates. Metoprolol was increased to 50 mg. he is asymptomatic in regards to atrial fibrillation. He denies acute cardiac complaints. no chest pain/SOB. No palpitations or dizziness. No recent fever or chills. He reports he stopped Eliquis last year after hospitalization as he felt he did not need it. He did report compliance with low dose metoprolol. Patient was ordered to have an echocardiogram in 2021 during times of sepsis and afib, but does not appear this was done. No echo in [facility] or [place] records. Upon arrival/admission, patient was in NSR/Sinus tachycardia. Allergies Allergy/AdvReac Type Severity Reaction Status Date / Time Penicillins Allergy Severe THROAT Verified 11/13/22 00:56 SWELLING WITH BLISTERS linezolid Allergy Unknown tongue Verified 11/13/22 00:56 swelling,ITCHY Home Medications Medication Instructions Recorded Confirmed Type empagliflozin 25 mg tablet 25 mg PO QAM 07/31/20 11/13/22 History (Jardiance) acetaminophen 500 mg tablet 1,000 mg PO Q8 PRN fever or pain 09/30/21 11/13/22 Rx (Tylenol Extra Strength) #30 tabs metoprolol succinate 25 mg 25 mg PO QAM #30 tabs 10/01/21 11/13/22 Rx tablet,extended release 24 hr insulin glargine 100 unit/mL (3 34 unit subcut QAM 10/13/22 11/13/22 History mL) subcutaneous pen (Basaglar KwikPen U-100 Insulin) tirzepatide 2.5 mg/0.5 mL 2.5 mg subcut .Weekly 10/13/22 11/13/22 History subcutaneous pen injector (Faith) sulfamethoxazole 800 1 tab PO BID 14 days #28 tabs 11/09/22 11/13/22 Rx mg-trimethoprim 160 mg tablet (Bactrim DS) Patient History Medical History Acid reflux "MILD" Atrial fibrillation On Eliquis Diabetes Hx of gout Neuropathy RT LEG Surgical History H/O knee surgery RT/LEFT History of appendectomy History of herniorrhaphy History of nasal cauterization History of tonsillectomy and adenoidectomy S/P foot surgery, right [place] teeth removed Family History Father Family history of diabetes mellitus Father Muscular dystrophy Other No family history of adverse response to anesthesia Social History Smoking Status: Never smoker Tobacco Type: Smokeless Tobacco (Dip or Chew) Age Started Using Tobacco: 12; Cigarettes Per Day: ~1 can daily; Second Hand Exposure: No; Do You Dip or Chew Tobacco: Yes; Tobacco Cessation Education Requested by Patient: No Hx Alcohol Use: No Hx Substance Use: No Preferred Language: Spanish Communication Ability: Effective Visual Impairment: Limited Hearing Ability: Use of Hearing Aid Voice Intercept Technician Required: No Beliefs That Will Affect Care: None marital status: Current Living Situation: Spouse Current Living Situation Comment: 2 story home with current occupational status: retired and disabled How many Children do You have: 3 How many Children do You have Comment: works, able to assist a little. Pt independent with care at this time. Other Information That Helps Us Care for You: No Feels Safe at Home: Yes Safety Concerns: Feels Safe At This Time Diet: regular during the past year weight has: remained stable Gender Identity: Male Assistive Devices: Crutches, Glasses and Special Shoe Review of Systems Review of Systems: All systems reviewed & are unremarkable except as noted in HPI & below Physical Exam Constitutional: WD/WN, vitals as above well developed; no acute distress Respiratory: normal respiratory effort, lungs clear to auscultation Cardiovascular: Rate/Rhythm: + tachycardic and + irregularly irregular Heart Sounds: normal S1 and normal S2; no murmur Vessels: no JVD Extremities: + edema (trace pretibial edema right leg. Right foot wrapped, wound vac in place) Gastrointestinal (Abdomen): normal bowel sounds, soft, nontender, no hepatosplenomegaly Neurologic: PERRL, EOMI, accommodation nl, no face palsy, no dysarthria Psychiatric: A+Ox3, euthymic affect Results & Data Vital Signs (Past 12 Hours) Vital Signs Temp Pulse Pulse Resp BP Pulse Ox O2 Del Method 11/16/22 11:22 36.9 C 94 H 18 147/65 H 100 Room Air 11/16/22 08:54 91 H 11/16/22 07:20 36.6 C 97 H 17 144/88 H 96 Room Air 11/16/22 04:00 36.7 C 92 H 18 103/61 95 Room Air, Nasal Cannula Laboratory Results CBC 11/16/22 Range/Units 06:58 WBC 10.12 (4.8-10.8) K/ul RBC 4.33 L (4.70-6.10) M/uL Hgb 11.9 L (14.0-18.0) g/dl Hct 35.7 L (42.0-52.0) % Plt Count 363 (130-400) K/uL Comprehensive Metabolic Panel 11/16/22 Range/Units 06:58 Sodium 135 L (136-145) mmol/L Potassium 3.9 (3.5-5.1) mmol/L Chloride 102 (98-107) mmol/L Carbon Dioxide 25 (21-32) mmol/L BUN 18 (6-23) mg/dl Creatinine 0.91 (0.6-1.4) mg/dl Glucose 169 H (70-99(Fasting)) mg/dl Calcium 9.1 (8.6-10.3) mg/dl Intake and Output 11/16/22 11/16/22 11/16/22 06:59 14:59 22:59 Intake Total 100 / 2894.583 Output Total 1000 / 2601 300 / 300 Balance -900 / 293.583 -300 / -300 Intake: Oral 100 / 1710 Output: Urine 1000 / 2600 300 / 300 Other: # Unmeasured Voids 4 Weight 80.5 kg Weight Measurement Method Built in [facility] Diagnostic Findings Telemetry reviewed: NSR, Sinus tachcyardia - Converting to Atrial fibrillation with elevated ventricular rates the morning of 11/16/22 around 9:15 AM Foot cultures + for staph aureus Blood cultures 2/2 positive for staph aureus EKG reviewed from admission: Sinus tachycardia at 114 bpm, no acute ST/T wave abnormalities repeat EKG reviewed from this morning: Atrial fibrillation with elevated ventricular rates Medications Administered CBC 11/16/22 Range/Units 06:58 WBC 10.12 (4.8-10.8) K/ul RBC 4.33 L (4.70-6.10) M/uL Hgb 11.9 L (14.0-18.0) g/dl Hct 35.7 L (42.0-52.0) % Plt Count 363 (130-400) K/uL Comprehensive Metabolic Panel 11/16/22 Range/Units 06:58 Sodium 135 L (136-145) mmol/L Potassium 3.9 (3.5-5.1) mmol/L Chloride 102 (98-107) mmol/L Carbon Dioxide 25 (21-32) mmol/L BUN 18 (6-23) mg/dl Creatinine 0.91 (0.6-1.4) mg/dl Glucose 169 H (70-99(Fasting)) mg/dl Calcium 9.1 (8.6-10.3) mg/dl Intake and Output 11/16/22 11/16/22 11/16/22 06:59 14:59 22:59 Intake Total 100 / 2894.583 Output Total 1000 / 2601 300 / 300 Balance -900 / 293.583 -300 / -300 Intake: Oral 100 / 1710 Output: Urine 1000 / 2600 300 / 300 Other: # Unmeasured Voids 4 Weight 80.5 kg Weight Measurement Method Built in [facility]
[2022-11-16] MEDS ORDERED: APIXABAN 5 MG TABLET PO ONE (16:45)
[2022-11-16] MEDS: METOPROLOL SUCC 50MG EXT REL TAB PO SCH (20:33)
--- NOTE | 2022-11-17 07:08 | Hospitalist Progress Note ---
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 Diabetic peripheral neuropathy/right foot ulcer -Initial injury on 11/03, follows with wound care, wound culture MSSA. Refractory to Bactrim x4 days -Afebrile, slight leukocytosis (11.91) on admission. ESR-98, CRP-6.87. -XR foot showed osteomyelitis underlying the base of the 5th metatarsal (correlating to lateral ulcer) -MRI on 11/13 consistent with osteomyelitis with associated cellulitis in the R fifth metatarsal -MRSA nares negative, DC vancomycin on 11/15. -blood cx and wound cx showed Staph aureus with resistance to clindamycin, erythromycin, and tetracycline. -Initially started on cefepime and transitioned to Ancef. Will transition to oral Bactrim on 11/17. Will repeat blood cultures. -podiatry consulted, removal of the fifth metatarsal on 11/15, wound VAC placed. Plan to follow-up in 2 weeks for reevaluation. Home wound care will be set up at this time. Diabetes type 2 diabetes -Managed on Lantus 34 units daily, Jardiance 25 mg every morning, Mounjaro 2.5 mg SQ every Monday. -A1c upon admission 9.1%, though patient recently started on Mounjaro. Recommend follow-up with PCP. -Holding PO antihyperglycemics -Lantus 30 units every morning, SSI coverage per protocol -ACHS glucose checks Paroxysmal atrial fibrillation SVT -Acute; history of cardioversion, unsure exact history but most likely due to SVT rather than atrial fibrillation. -Was started on anticoagulation. However, patient stopped taking few months ago as he felt he did not have true A-fib; however, he continued to take metoprolol. -Irregularly irregular heartbeats with HR's in the 100s-110s on admission. -Patient had a run of SVT/atrial fibrillation that improved with Valsalva maneuv er on morning of 11/15, given 1 L of LR. Converted back to sinus rhythm. -Patient had runs of A-fib/a flutter throughout the day on 11/16, increase metoprolol to 50 mg once a day. Discussed importance of anticoagulation with patient who is agreeable to restart Eliquis. Return to sinus rhythm on 11/17. -Followed with [facility] cardiology in the past, cardiology consulted due to persistent A-fib. -Echo showed a EF of 55- 60% on 11/17, metoprolol increased to 50 mg twice daily. Hyponatremia-resolved -128 upon admission; usual baseline 132-135. -Suspect infection, hyperglycemia, poor p.o. intake, as opposed to true hyponatremia. Expect sodium level to return to baseline as blood glucose is controlled. -Return to normal. Hypertension -Chronic; managed on metoprolol succinate 25 mg every morning -Due to recurrent episodes of tachycardia with A-fib will increase metoprolol succinate to 50 mg twice a day. Code: Full code Dispo: Med-Surg FEN/GI: Carb consistent DVT Prophylaxis: Eliquis Consults: Podiatry, cardiology (2) Diabetic ulcer of right foot: (3) Acute hyponatremia: (4) Diabetes mellitus, type 2: (5) Essential hypertension: (6) Mixed hyperlipidemia: (7) SVT (supraventricular tachycardia): Admission and Anticipated Discharge Date Admission Date: November 13, 2022 Supervising Physician Co-Signing Physician Notes ATTESTATION I also saw the patient and confirmed torres portions of the history and exam. I agree with the impression and plan in the resident documentation, and as summarized below. EXAM 137/90, 90, 18, 36.4, 90% on room air Alert and oriented. Heart regular, auscultated rate mid 80s Lungs clear with nonlabored respirations Wound VAC is applied, right lower extremity DATA Labs Hemoglobin 12.1, platelet count 391 Sodium 135, potassium 4.4, BUN 18, creatinine 1.06 Micro Cultures from the right foot dated 11/14/2022 and a single culture from 11/13/22 demonstrate MSSA. Blood cultures dated 11/12/2022 also demonstrate MSSA. IMPRESSION & PLAN Diabetes with peripheral neuropathy, right foot ulceration Appreciate podiatry consultation Secondary closure as outpatient Home wound VAC; discussed coordination of this with wound care nurse today Will be changed here on Monday, hopefully with home unit if insurance authorizes Home nursing to change on Monday and Monday of next week Wound care center follow-up on Monday of next week Paroxysmal atrial fibrillation Appreciate cardiology consultation Metoprolol increased, tolerating well Eliquis has been resumed Echocardiogram pending MSSA bacteremia Cultures for clearance pending Clinically looks well Echocardiogram pending Additional per resident documentation Subjective Patient was seen bedside this morning. He has no issues or complaints at this time. Review of Systems Review of Systems: All systems reviewed & are unremarkable except as noted in Subjective Physical Exam Physical Exam: Constitutional: well appearing, no acute distress HEENT: normocephalic, no conjunctival injection CV: Irregularly irregular rate and rhythm, no murmur, no LE edema Respiratory: CTA bilaterally. No rhonchi, wheezes, or crackles. No increased work of breathing Right foot: Examined bedside with wound nurse, picture in chart Neuro: alert, oriented, no FND noted Psych: mood and affect congruent Results & Data Results & Data Vital Signs (Past 12 Hours) Vital Signs Temp Pulse Pulse Resp BP Pulse Ox O2 Del Method 11/17/22 03:28 36.8 C 85 18 117/65 97 Room Air 11/16/22 23:52 90 11/16/22 22:35 36.7 C 95 H 22 136/74 98 Room Air 11/16/22 19:16 36.7 C 94 H 20 121/71 97 Room Air Laboratory Results 11/17/22 07:08 11/17/22 07:08 Resident Activity Tracking Resident Involvement: Resident Care Provided Care Provided: Adult Hospital Medicine
[2022-11-17] MEDS: FLUTICASONE PROPIONATE NA SPR 16 GM BTL SCH (07:55)
[2022-11-17 08:00] LABS: Hematocrit (blood only) 35.5 % (42.0-52.0); Hemoglobin 12.1 g/dl (14.0-18.0); Mean Corpuscular Hemoglobin 27.6 pg (25.0-34.0); Mean Corpuscular Hgb Conc 34.1 g/dL (32.0-36.0); Mean Corpuscular Volume 81.1 fL (80.0-100.0); Mean Platelet Volume 9.8 fL (9.4-12.4); Platelet Count 391 K/uL (130-400); RDW Coefficient of Variation 12.8 % (11.5-14.5); RDW Standard Deviation 38.1 fL (36.4-46.3); Red Blood Count 4.38 M/uL (4.70-6.10); White Blood Count 9.26 K/ul (4.8-10.8)
[2022-11-17] MEDS: METOPROLOL SUCC 50MG EXT REL TAB PO SCH ×2 (08:00→20:56)
[2022-11-17] MEDS: SULFAMETHOXAZOLE/TRIMETHOPRIM DS 800/160MG TAB PO SCH ×2 (08:00→20:56)
[2022-11-17] MEDS: LANTUS PER UNIT CHARGE SQ SCH (08:00)
[2022-11-17] MEDS: APIXABAN 5 MG TABLET PO SCH ×2 (08:00→20:56)
[2022-11-17] MEDS: INSULIN ASPART PER UNIT CHARGE SC SCH ×4 (08:00→20:56)
[2022-11-17 08:13] LABS: Calcium 9.2 mg/dl (8.6-10.3); Creatinine Clr Calc Pharmacy 72.3 ml/min; Est GFR (African American) 86.8 ml/min; Est GFR (Non-African American) 74.8 ml/min; Magnesium 1.9 mg/dl (1.7-2.4); Phosphorus 2.8 mg/dl (2.5-4.9); Potassium 4.4 mmol/L (3.5-5.1)
[2022-11-17] MEDS ORDERED: METOPROLOL SUCC 50MG EXT REL TAB PO SCH (09:00)
--- NOTE | 2022-11-17 11:58 | Cardiology Progress Note ---
Date of Service November 17, 2022 Assessment & Plan (1) Atrial fibrillation with RVR: (2) Diabetic infection of right foot: (3) Sepsis: Plan Patient admitted for worsening right foot ulceration, diagnosed with osteomyelitis/sepsis with positive blood cultures. Continue IV antibiotics Underwent partial amputation of right foot with podiatry. Wound vac in place. recurrent atrial fibrillation with elevated ventricular rates during this admission Metoprolol increased to 50 mg BID. Eliquis started. Patient converted to NSR late yesterday afternoon. Currently NSR. No further podiatry procedures needed at this time. Upon discharge, will send copay card to his pharmacy to assist with cost. Given sepsis and recurrent afib, recommend echocardiogram. Results pending. Consider repeating blood cultures again. Likely will need ongoing antibiotic therapy Case discussed with Dr. Tate I spent a total of 25 minutes on the date of service in preparation, delivery, and documentation of the care provided to this patient, excluding any time spent in the performance of separately billed services. Meredith Bashir PA-C Department of Cardiology, [facility] This chart was completed in part utilizing Speech Voice Recognition Software. Grammatical errors, random word insertions, pronoun errors, and incomplete sentences are an occasional consequence of this system due to software limitations, ambient noise, and hardware issues. Any formal questions or concerns about the content, text, or information contained within the body of this dictation should be directly addressed to the provider for clarification. Admission and Anticipated Discharge Date Admission Date: November 13, 2022 Supervising Physician Co-Signing Physician Notes Supervising Physician Attestation: I have personally performed a history and physical examination on the patient. I agree with the physician kindergarten assistant's findings and plan as documented with the following additions. Subjective: Patient without cardiac complaints. Denies subjective fevers or chills. Afebrile on vital signs. Exam: Cardiovascular: Regular rhythm, no murmurs, no edema Data: 2 of 2 blood cultures on 11/12/2022 positive for methicillin sensitive Staph aureus, 2 blood cultures drawn 11/14/2022 positive for methicillin sensitive Staph aureus Assessment and Plan: Sepsis MSSA bacteremia Paroxysmal atrial fibrillation Diabetic foot wound -Continue metoprolol, dose increased to 50 mg twice daily on 11/16/2022 -Continue Eliquis which was reinitiated on 11/16/2022 -Would consider obtaining serial blood cultures until negative given persistent bacteremia and history of osteomyelitis. Case discussed by phone with Dr Holliday. Jeet Tate, Subjective Patient without subjective complaint. Denies fevers or chills. Wound VAC is in place. Review of telemetry reveals the patient converted from atrial fi brillation to sinus rhythm on 11/16/2022 at 1641. During the day today, sinus rhythm in the 80s to 90s noted. Physical Exam Constitutional: WD/WN, vitals as above well developed; no acute distress Respiratory: normal respiratory effort, lungs clear to auscultation Cardiovascular: Rate/Rhythm: + tachycardic and + irregularly irregular Heart Sounds: normal S1 and normal S2; no murmur Vessels: no JVD Extremities: + edema (trace pretibial edema right leg. Right foot wrapped, wound vac in place) Gastrointestinal (Abdomen): normal bowel sounds, soft, nontender, no hepatosplenomegaly Neurologic: PERRL, EOMI, accommodation nl, no face palsy, no dysarthria Psychiatric: A+Ox3, euthymic affect Results & Data Vital Signs (Past 12 Hours) Vital Signs Temp Pulse Pulse Resp BP Pulse Ox O2 Del Method 11/17/22 11:32 36.4 C L 91 H 18 137/90 97 Room Air 11/17/22 09:11 84 11/17/22 07:17 36.7 C 79 18 122/76 98 Room Air 11/17/22 03:28 36.8 C 85 18 117/65 97 Room Air Laboratory Results CBC 11/17/22 Range/Units 07:08 WBC 9.26 (4.8-10.8) K/ul RBC 4.38 L (4.70-6.10) M/uL Hgb 12.1 L (14.0-18.0) g/dl Hct 35.5 L (42.0-52.0) % Plt Count 391 (130-400) K/uL Comprehensive Metabolic Panel 11/17/22 Range/Units 07:08 Sodium 135 L (136-145) mmol/L Potassium 4.4 (3.5-5.1) mmol/L Chloride 102 (98-107) mmol/L Carbon Dioxide 27 (21-32) mmol/L BUN 18 (6-23) mg/dl Creatinine 1.06 (0.6-1.4) mg/dl Glucose 144 H (70-99(Fasting)) mg/dl Calcium 9.2 (8.6-10.3) mg/dl Intake and Output 11/16/22 11/17/22 11/17/22 22:59 06:59 14:59 Output Total 600 / 1400 500 / 1400 Balance -600 / -1400 -500 / -1400 Output: Urine 600 / 1400 500 / 1400 Other: # Unmeasured Voids 4 Weight 81.2 kg Weight Measurement Method Built in [facility] Diagnostic Findings Telemetry reviewed: Patient converted to NSR last evening at 16:45. Currently NSR in the 80-90's. Echocardiogram is pending Medications Administered Current Inpatient Medications Acetaminophen (Acetaminophen 500 Mg Tab) 1,000 mg PO Q8 PRN PRN Reason: fever or pain Stop: 12/13/22 03:15 Last Admin: 11/15/22 01:22 Dose: 1,000 mg Apixaban (Apixaban 5 Mg Tablet) 5 mg PO BID JAVI Stop: 12/17/22 08:59 Last Admin: 11/17/22 08:00 Dose: 5 mg Calcium Carbonate (Calcium Carbonate 500 Mg Chewable Tab) 500 mg PO Q2H PRN PRN Reason: Heart Burn Stop: 12/13/22 19:59 Last Admin: 11/15/22 05:56 Dose: 500 mg Dextrose (Dextrose 50% 50 Ml Syringe) 25 - 50 ml IV UD PRN; Protocol PRN Reason: Hypoglycemia Protocol Stop: 12/13/22 03:15 Fluticasone Propionate (Fluticasone Propionate Na Spr 16 Gm Btl) 2 sprays NA DAILY JAVI Stop: 12/13/22 08:59 Last Admin: 11/17/22 07:55 Dose: 2 sprays Glucagon (Glucagon For Inj 1 Mg Vial) 1 mg SQ UD PRN; Protocol PRN Reason: Hypoglycemia Protocol Stop: 12/13/22 03:15 Glucose (Glucose 10 Tab/Tube) 4 - 8 tab PO UD PRN; Protocol PRN Reason: Hypoglycemia Treatment Stop: 12/13/22 03:15 Glucose (Glucose 40% Gel 15 Gm Tube) 15 - 30 gm PO UD PRN; Protocol PRN Reason: Hypoglycemia Protocol Stop: 12/13/22 03:15 Cefazolin Sodium (Ancef 2000mg) 2,000 mg in 15 mls @ 3.75 mls/min IV Q8H JAVI Stop: 12/27/22 08:59 Last Admin: 11/16/22 16:49 Dose: 3.75 mls/min Insulin Aspart (Insulin Aspart Per Unit Charge) 0 units SC ACHS [facility] Stop: 12/13/22 07:29 Last Admin: 11/17/22 11:45 Dose: 9 units Insulin Glargine (Lantus Per Unit Charge) 30 units SQ DAILY JAVI Stop: 12/13/22 08:59 Last Admin: 11/17/22 08:00 Dose: 30 units Metoprolol Succinate (Metoprolol Succ 50mg Ext Rel Tab) 50 mg PO BID [facility] Stop: 12/16/22 20:59 Last Admin: 11/17/22 08:00 Dose: 50 mg Miscellaneous (Carbohydrates For Hypoglycemia ) 15 - 30 gm PO UD PRN PRN Reason: Hypoglycemia Protocol Stop: 12/13/22 03:15 Trimethoprim/Sulfamethoxazole (Sulfamethoxazole/Trimethoprim Ds 800/160mg Tab) 1 tab PO Q12 [facility] Stop: 12/29/22 08:59 Last Admin: 11/17/22 08:00 Dose: 1 tab
--- NOTE | 2022-11-17 19:29 | Electrocardiogram Report ---
Test Reason : Blood Pressure : / mmHG Vent. Rate : 088 BPM Atrial Rate : 088 BPM P-R Int : 164 ms QRS Dur : 084 ms QT Int : 356 ms P-R-T Axes : -06 002 -03 degrees QTc Int : 430 ms Normal sinus rhythm Normal ECG When compared with ECG of 15-NOV-2022 06:53, Sinus rhythm has replaced Atrial fibrillation Confirmed by Damian Oseguera ([id number]) on 11/17/2022 7:29:29 PM Referred By: REFERRED SELF Confirmed By:Mark Oseguera
[2022-11-18] MEDS: ACETAMINOPHEN 500 MG TAB PO PRN ×2 (03:11→16:59)
--- NOTE | 2022-11-18 06:54 | Discharge Summary ---
Date of Service November 18, 2022 Admission HPI Per Admitting Provider Andre is a 62-year-old man with a history of DM2, Charcot neuropathy (multiple diabetic foot infections, previous osteomyelitis), hypertension who presented to the emergency room for nonhealing injury to his right foot x10 days. [place] his lateral right foot. He went to the wound care center, where he goes for wound checks once weekly. Wound was cultured and dressed, and eventually returned positive for oxacillin- sensitive Staph aureus. He was started on Bactrim twice daily and, on presentation to the emergency room, had completed 4 days of the course. 2 days ago, however, he began to develop shaking chills and fever despite being on antibiotics and so decided to come in. Per , who is at bedside, peak temperature was 99.5 F, although he had taken a Tylenol before that measurement was obtained In the emergency room, vitals notable only for tachycardia to the 100s-110s. WBC was elevated at 11.91 with neutrophilic predominance, ESR was elevated at 98, more than 3 times his previous high. Sodium-128, creatinine-1.45 (b/l 0.9- 1.1), serum glucose of 234. COVID-19 and nasal MRSA swabs were negative. EKG showed sinus tachycardia with no ST segment abnormalities. CXR was negative for acute infectious process, per my read. Per my read, XR right foot showed possible degenerative changes of fifth metatarsal laterally. Was unable to appreciate soft tissue swelling. After blood cultures were drawn, he received an NS bolus x1 L, as well as a loading dose of IV vancomycin 1.5 g, plus an additional 0.75 g. He also received 2 g of IV cefepime and hospitalist was consulted for admission. On admission, he corroborates HPI as above. ROS + mild headache, nasal congestion, reduced appetite and p.o. intake. He denies nausea, vomiting, pain, sore throat, chest pain, shortness of breath, or pedal edema. Discharge Data Allergies Allergy/AdvReac Type Severity Reaction Status Date / Time Penicillins Allergy Severe THROAT Verified 11/13/22 00:56 SWELLING WITH BLISTERS linezolid Allergy Unknown tongue Verified 11/13/22 00:56 swelling,ITCHY Consultations 11/13/22 00:24 ED Decision to Admit Stat 11/13/22 04:05 Consult Podiatry Routine 11/16/22 14:20 Consult Cardiology Routine Procedures Performed Operation Date: 11/14/22 09:10 Actual Procedures p Right Foot Incision and Drainage Non-viable Bone, Application of Wound Vac(Right) - Martin Jackson DPM, MS Ordered Studies 11/13/22 03:01 MRI Foot [MR foot RT w/o con] Routine Diabetes Follow up Diabetes Follow-up Needed for HgbA1c >9% Discharge Plan Discharge Items Reason For Visit: DIABETIC ULCER OF RIGHT FOOT Follow-up/Referrals: Cristofer Patel MD [Primary Care Provider] - Medications and DC Order Prescriptions: No Action Mounjaro 2.5 mg/0.5 mL pen injector 2.5 mg subcut .Weekly Rx Instructions: fri sulfamethoxazole-trimethoprim [Bactrim DS] 800-160 mg tablet 1 tab PO BID 14 Days Qty: 28 0RF Jardiance 25 mg Tablet 25 mg PO QAM Basaglar KwikPen U-100 Insulin 100 unit/mL (3 mL) insulin pen 34 unit SUBCUT QAM acetaminophen [Tylenol Extra Strength] 500 mg Tablet 1,000 mg PO Q8 PRN (Reason: fever or pain) Qty: 30 0RF metoprolol succinate 25 mg Tablet Extended Release 24 Hr 25 mg PO QAM Qty: 30 0RF Krames/Other Patient Handouts: Nutrition for Wound Healing, Managing Type 2 Diabetes Admission Data Admit Date/Time: 11/13/22 01:18 Attending Provider: Tremayne Cardenas Admit Provider: Emily Scott Primary Care Provider: Cristofer Patel Other Providers: Griffin Alfaro ; Martin Jackson ; Emelyn Griffin ; Jeet Tate ; Joshua Gonzalez ; Bean Mccauley ; Dakota Shepard ; Cristofer Fairbanks ; Meredith Bashir ; Paloma Lacy ; Emelyn Vivas ; Pelon Harrell ; Yola Patel ; [facility]
[2022-11-18 07:50] LABS: Hematocrit (blood only) 35.3 % (42.0-52.0); Hemoglobin 11.8 g/dl (14.0-18.0); Mean Corpuscular Hemoglobin 27.3 pg (25.0-34.0); Mean Corpuscular Hgb Conc 33.4 g/dL (32.0-36.0); Mean Corpuscular Volume 81.5 fL (80.0-100.0); Mean Platelet Volume 9.5 fL (9.4-12.4); Platelet Count 406 K/uL (130-400); RDW Coefficient of Variation 12.8 % (11.5-14.5); RDW Standard Deviation 38.2 fL (36.4-46.3); Red Blood Count 4.33 M/uL (4.70-6.10); White Blood Count 8.77 K/ul (4.8-10.8)
[2022-11-18 08:10] LABS: BUN Creatinine Ratio 21.1 (10-20); Calcium 9.1 mg/dl (8.6-10.3); Creatinine Clr Calc Pharmacy 80.6 ml/min; Est GFR (Non-African American) 85.4 ml/min; Potassium 4.2 mmol/L (3.5-5.1)
[2022-11-18] MEDS: INSULIN ASPART PER UNIT CHARGE SC SCH ×4 (08:32→21:52)
[2022-11-18] MEDS: LANTUS PER UNIT CHARGE SQ SCH (08:33)
[2022-11-18] MEDS: APIXABAN 5 MG TABLET PO SCH ×2 (08:51→20:09)
[2022-11-18] MEDS: METOPROLOL SUCC 50MG EXT REL TAB PO SCH ×2 (08:52→20:08)
[2022-11-18] MEDS: SULFAMETHOXAZOLE/TRIMETHOPRIM DS 800/160MG TAB PO SCH ×2 (08:52→20:08)
[2022-11-18] MEDS: FLUTICASONE PROPIONATE NA SPR 16 GM BTL SCH (08:52)
--- NOTE | 2022-11-18 09:37 | Hospitalist Progress Note ---
Date of Service November 18, 2022 Assessment & Plan (1) Diabetic peripheral neuropathy associated with type 2 diabetes mellitus: (2) Diabetic ulcer of right foot: (3) Acute hyponatremia: (4) Diabetes mellitus, type 2: (5) Essential hypertension: (6) Mixed hyperlipidemia: (7) SVT (supraventricular tachycardia): Plan 62 M with PMH of history of DM2 and associated Charcot neuropathy (s/p great toe amputation of right foot, multiple diabetic foot infections, previous osteomyelitis), AF, hyperlipidemia, hypertension, who presented to the ED for worsening ulcer of lateral right foot. Diabetic peripheral neuropathy/right foot ulcer -Initial injury on 11/03, follows with wound care, wound culture MSSA. Refractory to Bactrim x4 days -Afebrile, slight leukocytosis (11.91) on admission. ESR-98, CRP-6.87. -XR foot showed osteomyelitis underlying the base of the 5th metatarsal (correlating to lateral ulcer) -MRI on 11/13 consistent with osteomyelitis with associated cellulitis in the R fifth metatarsal -MRSA nares negative, DC vancomycin on 11/15. -blood cx and wound cx showed Staph aureus with resistance to clindamycin, erythromycin, and tetracycline. -Initially started on cefepime and transitioned to Ancef. Transition to oral Bactrim on 11/17. Will repeat blood cultures, pending at this time. Awaiting results prior to discharge. -podiatry consulted, removal of the fifth metatarsal on 11/15, wound VAC placed. Plan to follow-up in 2 weeks for reevaluation. Home wound care will be set up at this time. -If repeat blood cultures return positive then patient will most likely need 2 weeks of IV antibiotics as well as a KEYANNA. Diabetes type 2 diabetes -Managed on Lantus 34 units daily, Jardiance 25 mg every morning, Mounjaro 2.5 mg SQ every Monday. -A1c upon admission 9.1%, though patient recently started on Mounjaro. Recommend follow-up with PCP. -Holding PO antihyperglycemics -Lantus 30 units every morning, SSI coverage per protocol -ACHS glucose checks Paroxysmal atrial fibrillation SVT -Acute; history of cardioversion, unsure exact history but most likely due to SVT rather than atrial fibrillation. -Was started on anticoagulation. However, patient stopped taking few months ago as he felt he did not have true A-fib; however, he continued to take metoprolol. -Irregularly irregular heartbeats with HR's in the 100s-110s on admission. -Patient had runs of sustained SVT/atrial fibrillation during this admission. -Cardiology was consulted, patient metoprolol increased to 50 mg twice a day and restarted on Eliquis 5 mg twice daily. -Patient returned to normal sinus rhythm on 11/16 and has remained in normal sinus rhythm. -Echo showed a EF of 55- 60% on 11/17, metoprolol increased to 50 mg twice daily on 11/17. Hyponatremia-resolved -128 upon admission; usual baseline 132-135. -Suspect infection, hyperglycemia, poor p.o. intake, as opposed to true hyponatremia. Expect sodium level to return to baseline as blood glucose is controlled. -Return to normal. Hypertension -Chronic; managed on metoprolol succinate 25 mg every morning -Due to recurrent episodes of tachycardia with A-fib will increase metoprolol vaughn ccinate to 50 mg twice a day. Code:Full code Dispo:Med-Surg FEN/GI:Carb consistent DVT Prophylaxis:Eliquis Admission and Anticipated Discharge Date Admission Date: November 13, 2022 Supervising Physician Co-Signing Physician Notes Attending attestation Pt seen and examined in concert with Dr. Holliday. In agreement with the documented findings as noted in the resident documentation with any exceptions or additions as noted here. Pain controlled on present available analgesia. On examination, S1/S2 nl RRR no MCG. CTAB. Abd NT/ND BS+ve Right foot ulcer in the sett of type 2 DM with peripheral neuropathy - BCx pending, continue PO TMPSMX, glycemic control as noted Else see resident documentation as noted. Subjective Patient seen bedside this morning. States that he has no issues or concerns at this time. States that he is feeling well. Denies any chest pain, abdominal p ain, shortness of breath, or palpitations. Review of Systems Review of Systems: All systems reviewed & are unremarkable except as noted in Subjective Physical Exam Physical Exam: Constitutional: well appearing, no acute distress HEENT: normocephalic, no conjunctival injection CV: Irregularly irregular rate and rhythm, no murmur, no LE edema Respiratory: CTA bilaterally. No rhonchi, wheezes, or crackles. No increased work of breathing Right foot: Right foot wrapped with drainage in place Neuro: alert, oriented, no FND noted Psych: mood and affect congruent Results & Data Results & Data Vital Signs (Past 12 Hours) Vital Signs Temp Pulse Resp BP Pulse Ox O2 Del Method 11/18/22 07:28 36.8 C 81 18 129/76 99 Room Air 11/18/22 03:03 37.0 C 95 H 18 117/68 96 Room Air 11/17/22 22:53 37.1 C 94 H 18 136/64 97 Room Air Laboratory Results 11/18/22 07:18 11/18/22 07:18 Resident Activity Tracking Resident Involvement: Resident Care Provided Care Provided: Adult Hospital Medicine
--- NOTE | 2022-11-18 11:00 | Cardiology Progress Note ---
Date of Service November 18, 2022 Assessment & Plan (1) Atrial fibrillation with RVR: (2) Diabetic infection of right foot: (3) Sepsis: Plan Patient admitted for worsening right foot ulceration, diagnosed with osteomyelitis/sepsis with positive blood cultures. Underwent partial amputation of right foot with podiatry. Wound vac in place. Repeat blood cultures pending. Patient only on oral antibiotics. If repeat cultures remain positive, likely will need at least 2 weeks of IV antibiotic therapy. Would also consider KEYANNA. Echo was completed yesterday demonstrated preserved LVEF. there was focal calcification of the mitral valve. During admission, he developed recurrent atrial fibrillation with elevated ventricular rates during this admission Metoprolol increased to 50 mg BID. Eliquis started. Patient converted to NSR 11/16. Currently NSR. Upon discharge, will send copay card to his pharmacy to assist with cost. Telephone encounter placed in [place] and script sent. Await repeat blood cultures Case discussed with Dr. Tate I spent a total of 25 minutes on the date of service in preparation, delivery, and documentation of the care provided to this patient, excluding any time spent in the performance of separately billed services. Meredith Bashir PA-C Department of Cardiology, [facility] This chart was completed in part utilizing Speech Voice Recognition Software. Grammatical errors, random word insertions, pronoun errors, and incomplete sentences are an occasional consequence of this system due to software limitations, ambient noise, and hardware issues. Any formal questions or concerns about the content, text, or information contained within the body of this dictation should be directly addressed to the provider for clarification. Admission and Anticipated Discharge Date Admission Date: November 13, 2022 Supervising Physician Co-Signing Physician Notes Supervising Physician Attestation: I have personally performed a history and physical examination on the patient. I agree with the physician tmd teacher assistant's findings and plan as documented with the following additions. Subjective: Patient feeling well. Sitting in bedside chair. He walks to the restroom with the assistance of crutches. Wound VAC/dressing in place on right foot. Exam: Cardiovascular: Regular rhythm, no murmurs, no edema Data: Telemetry reveals ongoing sinus rhythm without recurrence of atrial fibrillation Assessment and Plan: Diabetic foot wound MSSA bacteremia Paroxysmal atrial fibrillation -Continue metoprolol succinate 50 mg twice daily, Eliquis 5 mg twice daily -Repeat blood cultures pending I spent a total of 20 minutes on the date of service in preparation, delivery, and documentation of the care provided to this patient, excluding any time spent in the performance of separately billed services. Jeet Tate, Subjective Patient resting in chair comfortably. Denies fever or chills. No palpitations or tachypalpitations. no dizziness. No chest pain or SOB. No orthopnea, PND or edema. Review of Systems Review of Systems: All systems reviewed & are unremarkable except as noted in HPI & below Physical Exam Constitutional: WD/WN, vitals as above well developed; no acute distress Respiratory: normal respiratory effort, lungs clear to auscultation Cardiovascular: Rate/Rhythm: regular rate and regular rhythm Heart Sounds: normal S1 and normal S2; no murmur Vessels: no JVD Extremities: + edema (trace pretibial edema right leg. Right foot wrapped, wound vac in place) Gastrointestinal (Abdomen): normal bowel sounds, soft, nontender, no hepatosplenomegaly Neurologic: PERRL, EOMI, accommodation nl, no face palsy, no dysarthria Psychiatric: A+Ox3, euthymic affect Results & Data Vital Signs (Past 12 Hours) Vital Signs Temp Pulse Resp BP Pulse Ox O2 Del Method 11/18/22 07:28 36.8 C 81 18 129/76 99 Room Air 11/18/22 03:03 37.0 C 95 H 18 117/68 96 Room Air Laboratory Results CBC 11/18/22 Range/Units 07:18 WBC 8.77 (4.8-10.8) K/ul RBC 4.33 L (4.70-6.10) M/uL Hgb 11.8 L (14.0-18.0) g/dl Hct 35.3 L (42.0-52.0) % Plt Count 406 H (130-400) K/uL Comprehensive Metabolic Panel 11/18/22 Range/Units 07:18 Sodium 133 L (136-145) mmol/L Potassium 4.2 (3.5-5.1) mmol/L Chloride 102 (98-107) mmol/L Carbon Dioxide 26 (21-32) mmol/L BUN 20 (6-23) mg/dl Creatinine 0.95 (0.6-1.4) mg/dl Glucose 156 H (70-99(Fasting)) mg/dl Calcium 9.1 (8.6-10.3) mg/dl Intake and Output 11/17/22 11/18/22 11/18/22 22:59 06:59 14:59 Intake Total 710 / 950 240 / 950 Balance 710 / 950 240 / 950 Intake: Oral 710 / 950 240 / 950 Other: # Unmeasured Voids 3 Weight 81.4 kg Weight Measurement Method Built in [facility] Diagnostic Findings Telemetry reviewed: NSR with HR ranging 70-90's. Occ PVC. No recurrent atrial fibrillation over the last 24 hours. Echo report reviewed dated 11/17/2022: Sinus rhythm was present during echo study. Normal LV wall thickness. Ejection fraction 55 to 60%. No regional wall motion abnormalities noted. Compared to the images obtained at the time of prior outpatient study dated August 2014, focal calcification of the mitral valve leaflet is now noted. Medications Administered Current Inpatient Medications Acetaminophen (Acetaminophen 500 Mg Tab) 1,000 mg PO Q8 PRN PRN Reason: fever or pain Stop: 12/13/22 03:15 Last Admin: 11/18/22 03:11 Dose: 1,000 mg Apixaban (Apixaban 5 Mg Tablet) 5 mg PO BID JAVI Stop: 12/17/22 08:59 Last Admin: 11/18/22 08:51 Dose: 5 mg Calcium Carbonate (Calcium Carbonate 500 Mg Chewable Tab) 500 mg PO Q2H PRN PRN Reason: Heart Burn Stop: 12/13/22 19:59 Last Admin: 11/15/22 05:56 Dose: 500 mg Dextrose (Dextrose 50% 50 Ml Syringe) 25 - 50 ml IV UD PRN; Protocol PRN Reason: Hypoglycemia Protocol Stop: 12/13/22 03:15 Fluticasone Propionate (Fluticasone Propionate Na Spr 16 Gm Btl) 2 sprays NA DAILY JAVI Stop: 12/13/22 08:59 Last Admin: 11/18/22 08:52 Dose: 2 sprays Glucagon (Glucagon For Inj 1 Mg Vial) 1 mg SQ UD PRN; Protocol PRN Reason: Hypoglycemia Protocol Stop: 12/13/22 03:15 Glucose (Glucose 10 Tab/Tube) 4 - 8 tab PO UD PRN; Protocol PRN Reason: Hypoglycemia Treatment Stop: 12/13/22 03:15 Glucose (Glucose 40% Gel 15 Gm Tube) 15 - 30 gm PO UD PRN; Protocol PRN Reason: Hypoglycemia Protocol Stop: 12/13/22 03:15 Cefazolin Sodium (Ancef 2000mg) 2,000 mg in 15 mls @ 3.75 mls/min IV Q8H JAVI Stop: 12/27/22 08:59 Last Admin: 11/16/22 16:49 Dose: 3.75 mls/min Insulin Aspart (Insulin Aspart Per Unit Charge) 0 units SC ACHS JAVI Stop: 12/13/22 07:29 Last Admin: 11/18/22 08:32 Dose: 9 units Insulin Glargine (Lantus Per Unit Charge) 30 units SQ DAILY JAVI Stop: 12/13/22 08:59 Last Admin: 11/18/22 08:33 Dose: 30 units Metoprolol Succinate (Metoprolol Succ 50mg Ext Rel Tab) 50 mg PO BID JAVI Stop: 12/16/22 20:59 Last Admin: 11/18/22 08:52 Dose: 50 mg Miscellaneous (Carbohydrates For Hypoglycemia ) 15 - 30 gm PO UD PRN PRN Reason: Hypoglycemia Protocol Stop: 12/13/22 03:15 Non-Formulary Medication (Tirzepatide [Mounjaro]) 2.5 mg SQ .Weekly JAVI Stop: 12/18/22 16:59 Trimethoprim/Sulfamethoxazole (Sulfamethoxazole/Trimethoprim Ds 800/160mg Tab) 1 tab PO Q12 JAVI Stop: 12/29/22 08:59 Last Admin: 11/18/22 08:52 Dose: 1 tab
[2022-11-18] MEDS ORDERED: MOUNJARO SQ SCH (16:00)
--- NOTE | 2022-11-18 21:42 | Orthopedic Progress Note ---
Date of Service November 18, 2022 Assessment & Plan (1) Diabetic ulcer of right foot: Plan: Patient seen, evaluated, and treated. Patient status post day #4 DOS 11/14/22 right foot surgery. Wound Vac intact and running. Reviewed cultures and sensitivities from fifth metatarsal bone culture (+) Kayode gooden Discussed discharge with Wound Vac and home health consulted for Vac changes. Thank you for allowing me to participate in the care of this Patient. (2) Diabetic infection of right foot: (3) Diabetes mellitus, type 2: Admission and Anticipated Discharge Date Admission Date: November 13, 2022 Subjective Patient seen bedside this evening. Patient is status post day #4 DOS 11/14/22 right foot surgery. States that he has no issues or concerns at this time. States that he is feeling well. Physical Exam Constitutional: well developed, well nourished, cooperative and comfortable Eyes: normal visual martell by confrontation Neck: normal visual inspection and trachea midline Respiratory: normal respiratory effort Cardiovascular: Rate/Rhythm: regular rate and regular rhythm Vessels: poste rior tibial pulses present and dorsalis pedis pulses present Musculoskeletal: Extremities: + foot abnormality (Hallux amputation) Skin: + ulcer (Right full thickness 5th met base, 5th toe, medial arch DFU) Neurologic: moves all extremities (Absent epicritic sensation) Psychiatric: Orientation: alert and oriented x 3 Results & Data Vital Signs (Past 12 Hours) Vital Signs Temp Pulse Pulse Resp BP Pulse Ox O2 Del Method 11/18/22 19:00 37.3 C 97 H 18 138/78 97 Room Air 11/18/22 16:00 90 11/18/22 16:09 36.6 C 98 H 18 127/70 98 Room Air 11/18/22 15:25 36.7 C 92 H 20 162/78 H 97 Room Air 11/18/22 11:58 36.4 C L 89 18 143/80 H 98 Room Air Diagnostic Findings [facility] [address] [place] [address] / Director: Boris Hill M.D. Clinical Laboratory Report Name: AGUILAR URIBE Acct: [id number] Status: ADM [place] : 1960 [facility]: 11/13/22 Age: 62 Sex: M Dis Date: Loc: Telemetry [address] [place] [address] Rm/Bed: S230-2 Spec: [id number] Collected: 11/14/22 Received: 11/14/[address]: Martin Jackson, DPM, MS Copy To: Emily Scott MD Source: Foot,Right OV Order: Ordered: Aer/Samantha Cult/Sm Comments: Comment 1. Deep Culture right foot Procedure Result Verified Site Gram Stain Final 11/14/22 Gram Stain Result Rare Gram Positive Cocci Rare WBCs Seen Aero/Samantha Cult Preliminary 11/18/22-1226 Organism 1 Staphylococcus aureus Quantity Few Sens Sensitivities to Follow No Anaerobes Isolated No Anaerobes Isolated S aureus RX M.I.C. --- --------- Clindamycin R <=0.5 Daptomycin S <=0.5 Erythromycin R >4 Oxacillin S <=0.25 Tetracycline R >8 Trimeth/Sulfa S <=0.5/9.5 Vancomycin S 1 S = SENSITIVE I = INTERMEDIATE R = RESISTANT
[2022-11-19 06:16] LABS: Basophils # (auto) 0.09 K/uL (0-0.2); Eosinophils # (auto) 0.61 K/uL (0-0.50); Eosinophils % (auto) 7.1 %; Hematocrit (blood only) 36.3 % (42.0-52.0); Immature Granulocytes # (auto) 0.06 K/uL (0.01-0.20); Immature Granulocytes % (auto) 0.7 %; Lymphocytes % (auto) 13.9 %; Mean Corpuscular Hemoglobin 27.2 pg (25.0-34.0); Mean Corpuscular Hgb Conc 33.1 g/dL (32.0-36.0); Mean Corpuscular Volume 82.3 fL (80.0-100.0); Mean Platelet Volume 9.5 fL (9.4-12.4); Monocytes # (auto) 0.59 K/uL (0.11-0.59); Monocytes % (auto) 6.8 %; Neutrophils # (auto) 6.07 K/uL (1.40-6.50); Neutrophils % (auto) 70.5 %; Platelet Count 466 K/uL (130-400); RDW Coefficient of Variation 12.7 % (11.5-14.5); RDW Standard Deviation 38.3 fL (36.4-46.3); Red Blood Count 4.41 M/uL (4.70-6.10); White Blood Count 8.62 K/ul (4.8-10.8)
[2022-11-19 06:35] LABS: BUN Creatinine Ratio 15.8 (10-20); Calcium 9.3 mg/dl (8.6-10.3); Creatinine Clr Calc Pharmacy 75.8 ml/min; Est GFR (Non-African American) 79.3 ml/min; Potassium 4.2 mmol/L (3.5-5.1)
--- NOTE | 2022-11-19 06:59 | Discharge Summary ---
Date of Service November 19, 2022 Discharge Data Allergies Allergy/AdvReac Type Severity Reaction Status Date / Time Penicillins Allergy Severe THROAT Verified 11/13/22 00:56 SWELLING WITH BLISTERS linezolid Allergy Unknown tongue Verified 11/13/22 00:56 swelling,ITCHY Consultations 11/13/22 00:24 ED Decision to Admit Stat 11/13/22 04:05 Consult Podiatry Routine 11/16/22 14:20 Consult Cardiology Routine Procedures Performed Operation Date: 11/14/22 09:10 Actual Procedures p Right Foot Incision and Drainage Non-viable Bone, Application of Wound Vac(Right) - Mratin Jackson DPM, MS Ordered Studies 11/13/22 03:01 MRI Foot [MR foot RT w/o con] Routine Diabetes Follow up Diabetes Follow-up Needed for HgbA1c >9% Hospital Course (1) Diabetic peripheral neuropathy associated with type 2 diabetes mellitus: (2) Diabetic ulcer of right foot: (3) Acute hyponatremia: (4) Diabetes mellitus, type 2: (5) Essential hypertension: (6) Mixed hyperlipidemia: (7) SVT (supraventricular tachycardia): Plan 62 M with PMH of history of DM2 and associated Charcot neuropathy (s/p great toe amputation of right foot, multiple diabetic foot infections, previous osteomyelitis), AF, hyperlipidemia, hypertension, who presented to the ED for worsening ulcer of lateral right foot. Diabetic peripheral neuropathy/right foot ulcer -Initial injury on 11/03, follows with wound care, wound culture MSSA. Refractory to Bactrim x4 days -Afebrile, slight leukocytosis (11.91) on admission. ESR-98, CRP-6.87. -XR foot showed osteomyelitis underlying the base of the 5th metatarsal (correlating to lateral ulcer) -MRI on 11/13 consistent with osteomyelitis with associated cellulitis in the R fifth metatarsal -MRSA nares negative, DC vancomycin on 11/15. -blood cx and wound cx showed Staph aureus with resistance to clindamycin, erythromycin, and tetracycline. -Initially started on cefepime and transitioned to Ancef. Transition to oral Bactrim on 11/17. Will repeat blood cultures, pending at this time. Awaiting results prior to discharge. -podiatry consulted, removal of the fifth metatarsal on 11/15, wound VAC placed. Plan to follow-up in 2 weeks for reevaluation. Home wound care will be set up at this time. -If repeat blood cultures return positive then patient will most likely need 2 weeks of IV antibiotics as well as a KEYANNA. Diabetes type 2 diabetes -Managed on Lantus 34 units daily, Jardiance 25 mg every morning, Mounjaro 2.5 mg SQ every Monday. -A1c upon admission 9.1%, though patient recently started on Mounjaro. R ecommend follow-up with PCP. -Holding PO antihyperglycemics -Lantus 30 units every morning, SSI coverage per protocol -ACHS glucose checks Paroxysmal atrial fibrillation SVT -Acute; history of cardioversion, unsure exact history but most likely due to SVT rather than atrial fibrillation. -Was started on anticoagulation. However, patient stopped taking few months ago as he felt he did not have true A-fib; however, he continued to take metoprolol. -Irregularly irregular heartbeats with HR's in the 100s-110s on admission. -Patient had runs of sustained SVT/atrial fibrillation during this admission. -Cardiology was consulted, patient metoprolol increased to 50 mg twice a day and restarted on Eliquis 5 mg twice daily. -Patient returned to normal sinus rhythm on 11/16 and has remained in normal sinus rhythm. -Echo showed a EF of 55- 60% on 11/17, metoprolol increased to 50 mg twice daily on 11/17. Hyponatremia-resolved -128 upon admission; usual baseline 132-135. -Suspect infection, hyperglycemia, poor p.o. intake, as opposed to true hyponatremia. Expect sodium level to return to baseline as blood glucose is controlled. -Return to normal. Hypertension -Chronic; managed on metoprolol succinate 25 mg every morning -Due to recurrent episodes of tachycardia with A-fib will increase metoprolol succinate to 50 mg twice a day. Code:Full code Dispo:Med-Surg FEN/GI:Carb consistent DVT Prophylaxis:Eliquis Discharge Plan Discharge Items Reason For Visit: DIABETIC ULCER OF RIGHT FOOT Follow-up/Referrals: Cristofer Patel MD [Primary Care Provider] - Medications and DC Order Prescriptions: No Action sulfamethoxazole-trimethoprim [Bactrim DS] 800-160 mg tablet 1 tab PO BID 14 Days Qty: 28 0RF Jardiance 25 mg Tablet 25 mg PO QAM Basaglar KwikPen U-100 Insulin 100 unit/mL (3 mL) insulin pen 34 unit SUBCUT QAM acetaminophen [Tylenol Extra Strength] 500 mg Tablet 1,000 mg PO Q8 PRN (Reason: fever or pain) Qty: 30 0RF metoprolol succinate 25 mg Tablet Extended Release 24 Hr 25 mg PO QAM Qty: 30 0RF Mounjaro 5 mg/0.5 mL pen injector 5 mg SUBCUT .WEEKLY Rx Instructions: takes on Fridays Krames/Other Patient Handouts: Nutrition for Wound Healing, Managing Type 2 Diabetes Admission Data Admit Date/Time: 11/13/22 01:18 Attending Provider: Red Puente Admit Provider: Emily Scott Primary Care Provider: Cristofer Patel Other Providers: Griffin Alfaro ; aMrtin Jackson ; Emelyn Griffin ; Jeet Tate ; Joshua Gonzalez ; Bean Mccauley ; Dakota Shepard ; Cristofer Fairbanks ; Meredith Bashir ; Paloma Lacy ; Emelyn Vivas ; Pelon Harrell ; Yola Patel ; Count Includes [facility],Home Health
[2022-11-19] MEDS: METOPROLOL SUCC 50MG EXT REL TAB PO SCH ×2 (08:06→20:20)
[2022-11-19] MEDS: FLUTICASONE PROPIONATE NA SPR 16 GM BTL SCH (08:06)
[2022-11-19] MEDS: APIXABAN 5 MG TABLET PO SCH ×2 (08:06→20:21)
[2022-11-19] MEDS: SULFAMETHOXAZOLE/TRIMETHOPRIM DS 800/160MG TAB PO SCH (08:07)
[2022-11-19] MEDS: INSULIN ASPART PER UNIT CHARGE SC SCH ×4 (08:14→21:40)
[2022-11-19] MEDS: LANTUS PER UNIT CHARGE SQ SCH (08:15)
--- NOTE | 2022-11-19 12:31 | Hospitalist Progress Note ---
Date of Service November 19, 2022 Assessment & Plan (1) Diabetic peripheral neuropathy associated with type 2 diabetes mellitus: (2) Diabetic ulcer of right foot: (3) Acute hyponatremia: (4) Diabetes mellitus, type 2: (5) Essential hypertension: (6) Mixed hyperlipidemia: (7) SVT (supraventricular tachycardia): Plan 62 M with PMH of history of DM2 and associated Charcot neuropathy (s/p great toe amputation of right foot, multiple diabetic foot infections, previous osteomyelitis), AF, hyperlipidemia, hypertension, who presented to the ED for worsening ulcer of lateral right foot. Diabetic peripheral neuropathy/right foot ulcer -Initial injury on 11/03, follows with wound care, wound culture MSSA. Refractory to Bactrim x4 days -Afebrile, slight leukocytosis (11.91) on admission. ESR-98, CRP-6.87. -XR foot showed osteomyelitis underlying the base of the 5th metatarsal (correlating to lateral ulcer) -MRI on 11/13 consistent with osteomyelitis with associated cellulitis in the R fifth metatarsal -MRSA nares negative, DC vancomycin on 11/15. -blood cx and wound cx showed Staph aureus with resistance to clindamycin, erythromycin, and tetracycline. -Initially started on cefepime and transitioned to Ancef. Transition to oral Bactrim on 11/17. repeat blood cultures negative. -podiatry consulted, removal of the fifth metatarsal on 11/15, wound VAC placed. Plan to follow-up in 2 weeks for reevaluation. Home wound care will be set up at this time. -Although repeat blood cultures were negative, when reviewing previous blood cultures, may have had 2 out of 2 rather than 1 out of 2 growing Staph aureus. Curbside with infectious disease, who recommend that the patient growing Staph aureus in the blood should be treated as such with IV antibiotics for at least 2 to 4 weeks prior to de-escalating. On 11/19 patient was transition back to IV Ancef 2 g every 8 hours. Patient will need a PICC line prior to discharge. Reached out to case management about setting up home antibiotic therapy. Diabetes type 2 diabetes -Managed on Lantus 34 units daily, Jardiance 25 mg every morning, Mounjaro 2.5 mg SQ every Monday. -A1c upon admission 9.1%, though patient recently started on Mounjaro. Recommend follow-up with PCP. -Holding PO antihyperglycemics -Lantus 30 units every morning, SSI coverage per protocol -ACHS glucose checks Paroxysmal atrial fibrillation SVT -Acute; history of cardioversion, unsure exact history but most likely due to SVT rather than atrial fibrillation. -Was started on anticoagulation. However, patient stopped taking few months ago as he felt he did not have true A-fib; however, he continued to take metoprolol. -Irregularly irregular heartbeats with HR's in the 100s-110s on admission. -Patient had runs of sustained SVT/atrial fibrillation during this admission. -Cardiology was consulted, patient metoprolol increased to 50 mg twice a day and restarted on Eliquis 5 mg twice daily. -Patient returned to normal sinus rhythm on 11/16 and has remained in normal sinus rhythm. -Echo showed a EF of 55- 60% on 11/17, metoprolol increased to 50 mg twice daily on 11/17. Hyponatremia-resolved -128 upon admission; usual baseline 132-135. -Suspect infection, hyperglycemia, poor p.o. intake, as opposed to true hyponatremia. Expect sodium level to return to baseline as blood glucose is controlled. -Return to normal. Hypertension -Chronic; managed on metoprolol succinate 25 mg every morning -Due to recurrent episodes of tachycardia with A-fib will increase metoprolol succinate to 50 mg twice a day. Code:Full code Dispo:Med-Surg FEN/GI:Carb consistent DVT Prophylaxis:Eliquis Admission and Anticipated Discharge Date Admission Date: November 13, 2022 Supervising Physician Co-Signing Physician Notes Attending attestation Pt seen and examined in concert with Dr. Holliday. In agreement with the documented findings as noted in the resident documentation with any exceptions or additions as noted here. Resting in chair without complaint at time of evaluation. On examination, S1/S2 nl RRR no MCG. CTAB. Abd NT/ND BS+ve, wound C/D/I Osteomyelitis s/p excision with S. aureus bacteremia - repeat cultures BCx negative - transition to cefazolin and set up for PICC and ongoing course for 2- 6 weeks based ortho follow up Type 2 diabetes with peripheral neuropathy - glycemic control with basal bolus and monitoring with adjustment as needed Else see resident documentation as noted. Subjective Patient seen bedside this AM. No issues or concerns at this time. Review of Systems Review of Systems: All systems reviewed & are unremarkable except as noted in Subjective Physical Exam Physical Exam: Constitutional: well appearing, no acute distress HEENT: normocephalic, no conjunctival injection CV: Irregularly irregular rate and rhythm, no murmur, no LE edema Respiratory: CTA bilaterally. No rhonchi, wheezes, or crackles. No increased work of breathing Right foot: Right foot wrapped with drainage in place Neuro: alert, oriented, no FND noted Psych: mood and affect congruent Results & Data Results & Data Vital Signs (Past 12 Hours) Vital Signs Temp Pulse Pulse Resp BP Pulse Ox O2 Del Method 11/19/22 11:31 97 H 11/19/22 11:17 36.5 C 92 H 14 104/66 99 Room Air 11/19/22 08:00 97 H 11/19/22 07:14 37.2 C 90 17 105/46 L 97 Room Air 11/19/22 02:59 37 C 97 H 18 120/62 97 Room Air Laboratory Results 11/19/22 05:24 11/19/22 05:24
[2022-11-19] MEDS: ceFAZolin 2000MG 2,000 MG/15 ML SYR IV SCH (17:56)
[2022-11-20] MEDS: ceFAZolin 2000MG 2,000 MG/15 ML SYR IV SCH ×3 (01:30→17:20)
[2022-11-20 06:52] LABS: Basophils # (auto) 0.08 K/uL (0-0.2); Basophils % (auto) 0.8 %; Eosinophils # (auto) 0.59 K/uL (0-0.50); Eosinophils % (auto) 6.2 %; Hematocrit (blood only) 38.3 % (42.0-52.0); Hemoglobin 12.7 g/dl (14.0-18.0); Immature Granulocytes # (auto) 0.07 K/uL (0.01-0.20); Immature Granulocytes % (auto) 0.7 %; Lymphocytes # (auto) 1.55 K/uL (1.2-3.4); Lymphocytes % (auto) 16.3 %; Mean Corpuscular Hemoglobin 27.4 pg (25.0-34.0); Mean Corpuscular Hgb Conc 33.2 g/dL (32.0-36.0); Mean Corpuscular Volume 82.5 fL (80.0-100.0); Mean Platelet Volume 9.6 fL (9.4-12.4); Monocytes # (auto) 0.77 K/uL (0.11-0.59); Monocytes % (auto) 8.1 %; Neutrophils # (auto) 6.47 K/uL (1.40-6.50); Neutrophils % (auto) 67.9 %; Platelet Count 488 K/uL (130-400); RDW Coefficient of Variation 12.9 % (11.5-14.5); RDW Standard Deviation 38.7 fL (36.4-46.3); Red Blood Count 4.64 M/uL (4.70-6.10); White Blood Count 9.53 K/ul (4.8-10.8)
[2022-11-20 07:13] LABS: BUN Creatinine Ratio 12.3 (10-20); Calcium 9.7 mg/dl (8.6-10.3); Creatinine Clr Calc Pharmacy 62.8 ml/min; Est GFR (African American) 73.2 ml/min; Est GFR (Non-African American) 63.1 ml/min; Potassium 4.1 mmol/L (3.5-5.1)
--- NOTE | 2022-11-20 07:26 | Hospitalist Progress Note ---
Date of Service November 20, 2022 Assessment & Plan (1) Diabetic peripheral neuropathy associated with type 2 diabetes mellitus: (2) Diabetic ulcer of right foot: (3) Acute hyponatremia: (4) Diabetes mellitus, type 2: (5) Essential hypertension: (6) Mixed hyperlipidemia: (7) SVT (supraventricular tachycardia): Plan 62 M with PMH of history of DM2 and associated Charcot neuropathy (s/p great toe amputation of right foot, multiple diabetic foot infections, previous osteomyelitis), AF, hyperlipidemia, hypertension, who presented to the ED for worsening ulcer of lateral right foot. Diabetic peripheral neuropathy/right foot ulcer -Initial injury on 11/03, follows with wound care, wound culture MSSA. Refractory to Bactrim x4 days -Afebrile, slight leukocytosis (11.91) on admission. ESR-98, CRP-6.87. -XR foot showed osteomyelitis underlying the base of the 5th metatarsal (correlating to lateral ulcer) -MRI on 11/13 consistent with osteomyelitis with associated cellulitis in the R fifth metatarsal -MRSA nares negative, DC vancomycin on 11/15. -blood cx and wound cx showed Staph aureus with resistance to clindamycin, erythromycin, and tetracycline. -Initially started on cefepime and transitioned to Ancef. Transition to oral Bactrim on 11/17. repeat blood cultures negative. -podiatry consulted, removal of the fifth metatarsal on 11/15, wound VAC placed. Plan to follow-up in 2 weeks for reevaluation. Home wound care is set up for the patient. -Although repeat blood cultures were negative, when reviewing previous blood cultures, 2/2 rather than 1/2 which was initially reported, grew Staph aureus. Curbside with infectious disease recommend that the patient growing Staph aureus in the blood should be treated as such with IV antibiotics for at least 2 to 4 weeks prior to de-escalating. On 11/19 patient was transition back to IV Ancef 2 g every 8 hours. Patient will need a PICC line prior to discharge. -Reached out to case management about setting up home antibiotic therapy 11/19, waiting to hear back from case management, sent case management consult on 11/20. -Put an order for PICC line to be placed once approved for home antibiotics on 11/20. Diabetes type 2 diabetes -Managed on Lantus 34 units daily, Jardiance 25 mg every morning, Mounjaro 2.5 mg SQ every Monday. -A1c upon admission 9.1%, though patient recently started on Mounjaro. Recommend follow-up with PCP. -Holding PO antihyperglycemics -Lantus 30 units every morning, SSI coverage per protocol -ACHS glucose checks Paroxysmal atrial fibrillation SVT-resolved -Acute; history of cardioversion, unsure exact history but most likely due to SVT rather than atrial fibrillation. -Was started on anticoagulation. However, patient stopped taking few months ago as he felt he did not have true A-fib; however, he continued to take metoprolol. -Irregularly irregular heartbeats with HR's in the 100s-110s on admission. -Patient had runs of sustained SVT/atrial fibrillation during this admission. -Cardiology was consulted, patient metoprolol increased to 50 mg twice a day and restarted on Eliquis 5 mg twice daily. -Patient returned to normal sinus rhythm on 11/16 and continues to be in normal sinus rhythm -Echo showed a EF of 55- 60% on 11/17, metoprolol increased to 50 mg twice daily on 11/17. -Recommend outpatient follow-up Hyponatremia-resolved -128 upon admission; usual baseline 132-135. -Suspect infection, hyperglycemia, poor p.o. intake, as opposed to true hyponatremia. Expect sodium level to return to baseline as blood glucose is controlled. -Return to normal. Hypertension -Chronic; managed on metoprolol succinate 25 mg every morning -Due to recurrent episodes of tachycardia with A-fib will increase metoprolol succinate to 50 mg twice a day. Code:Full code Dispo:Currently pending home health care for IV antibiotics. FEN/GI:Carb consistent DVT Prophylaxis:Eliquis Admission and Anticipated Discharge Date Admission Date: November 13, 2022 Supervising Physician Co-Signing Physician Notes Attending attestation Pt seen and examined in concert with Dr. Holliday. In agreement with the documented findings as noted in the resident documentation with any exceptions or additions as noted here. Resting in chair without complaint at time of evaluation. Youngest son at bed side as well, updates provided On examination, S1/S2 nl RRR no MCG. CTAB. Abd NT/ND BS+ve, wound C/D/I Osteomyelitis s/p excision with S. aureus bacteremia - repeat cultures BCx negative - in the setting of previous staph bacteremia with known source s/p excision and negative repeat cultures, would recommend completion of course of IV abx with cefazolin for up to 6 weeks Type 2 diabetes with peripheral neuropathy - glycemic control with basal bolus and monitoring with adjustment as noted Else see resident documentation as noted above. Subjective Patient seen bedside this morning. No issues or complaints at this time. Denies any chest pain, shortness of breath, or pain. Review of Systems Review of Systems: All systems reviewed & are unremarkable except as noted in Subjective Physical Exam Physical Exam: Constitutional: well appearing, no acute distress HEENT: normocephalic, no conjunctival injection CV: Irregularly irregular rate and rhythm, no murmur, no LE edema Respiratory: CTA bilaterally. No rhonchi, wheezes, or crackles. No increased work of breathing Right foot: Right foot wrapped with drainage in place Neuro: alert, oriented, no FND noted Psych: mood and affect congruent Results & Data Results & Data Vital Signs (Past 12 Hours) Vital Signs Temp Pulse Pulse Resp BP BP Pulse Ox 11/20/22 07:18 36.8 C 88 16 118/73 98 11/20/22 03:31 37.4 C 69 16 124/73 95 11/19/22 23:15 93 H 11/19/22 22:57 37.2 C 94 H 18 145/75 H 97 O2 Del Method 11/20/22 07:18 Room Air 11/20/22 03:31 Room Air 11/19/22 23:15 11/19/22 22:57 Room Air Laboratory Results 11/20/22 05:38 11/20/22 05:38 Resident Activity Tracking Resident Involvement: Resident Care Provided Care Provided: Adult Hospital Medicine
[2022-11-20] MEDS: INSULIN ASPART PER UNIT CHARGE SC SCH ×4 (09:18→21:35)
[2022-11-20] MEDS: APIXABAN 5 MG TABLET PO SCH ×2 (09:18→21:34)
[2022-11-20] MEDS: METOPROLOL SUCC 50MG EXT REL TAB PO SCH ×2 (09:19→21:34)
[2022-11-20] MEDS: FLUTICASONE PROPIONATE NA SPR 16 GM BTL SCH (09:19)
[2022-11-20] MEDS: LANTUS PER UNIT CHARGE SQ SCH (09:21)
[2022-11-21] MEDS: ceFAZolin 2000MG 2,000 MG/15 ML SYR IV SCH ×3 (02:03→16:24)
--- NOTE | 2022-11-21 07:06 | Hospitalist Progress Note ---
Date of Service November 21, 2022 Assessment & Plan (1) Diabetic peripheral neuropathy associated with type 2 diabetes mellitus: (2) Diabetic ulcer of right foot: (3) Acute hyponatremia: (4) Diabetes mellitus, type 2: (5) Essential hypertension: (6) Mixed hyperlipidemia: (7) SVT (supraventricular tachycardia): Plan 62 M with PMH of history of DM2 and associated Charcot neuropathy (s/p great toe amputation of right foot, multiple diabetic foot infections, previous osteomyelitis), AF, hyperlipidemia, hypertension, who presented to the ED for worsening ulcer of lateral right foot. Diabetic peripheral neuropathy/right foot ulcer -Initial injury on 11/03, follows with wound care, wound culture MSSA. Refractory to Bactrim x4 days -Afebrile, slight leukocytosis (11.91) on admission. ESR-98, CRP-6.87. -XR foot showed osteomyelitis underlying the base of the 5th metatarsal (correlating to lateral ulcer) -MRI on 11/13 consistent with osteomyelitis with associated cellulitis in the R fifth metatarsal -MRSA nares negative, DC vancomycin on 11/15. -blood cx and wound cx showed Staph aureus with resistance to clindamycin, erythromycin, and tetracycline. -Initially started on cefepime and transitioned to Ancef. Transition to oral Bactrim on 11/17. repeat blood cultures negative. -podiatry consulted, removal of the fifth metatarsal on 11/15, wound VAC placed. Plan to follow-up in 2 weeks for reevaluation. Home wound care is set up for the patient. -Although repeat blood cultures were negative, when reviewing previous blood cultures, 2/2 rather than 1/2 which was initially reported, grew Staph aureus. Curbside with infectious disease recommend that the patient growing Staph aureus in the blood should be treated as such with IV antibiotics for at least 2 to 4 weeks prior to de-escalating. On 11/19 patient was transition back to IV Ancef 2 g every 8 hours. Patient will need a PICC line prior to discharge. -Reached out to case management about setting up home antibiotic therapy 11/19, waiting to hear back from case management, sent case management consult on 11/20. -Put an order for PICC line to be placed once approved for home antibiotics on 11/20. Diabetes type 2 diabetes -Managed on Lantus 34 units daily, Jardiance 25 mg every morning, Mounjaro 2.5 mg SQ every Monday. -A1c upon admission 9.1%, though patient recently started on Mounjaro. Recommend follow-up with PCP. -Holding PO antihyperglycemics -Lantus 30 units every morning, SSI coverage per protocol -ACHS glucose checks Paroxysmal atrial fibrillation SVT-resolved -Acute; history of cardioversion, unsure exact history but most likely due to SVT rather than atrial fibrillation. -Was started on anticoagulation. However, patient stopped taking few months ago as he felt he did not have true A-fib; however, he continued to take metoprolol. -Irregularly irregular heartbeats with HR's in the 100s-110s on admission. -Patient had runs of sustained SVT/atrial fibrillation during this admission. -Cardiology was consulted, patient metoprolol increased to 50 mg twice a day and restarted on Eliquis 5 mg twice daily. -Patient returned to normal sinus rhythm on 11/16 and continues to be in normal sinus rhythm -Echo showed a EF of 55- 60% on 11/17, metoprolol increased to 50 mg twice daily on 11/17. -Recommend outpatient follow-up Hyponatremia-resolved -128 upon admission; usual baseline 132-135. -Suspect infection, hyperglycemia, poor p.o. intake, as opposed to true hyponatremia. Expect sodium level to return to baseline as blood glucose is controlled. -Return to normal. Hypertension -Chronic; managed on metoprolol succinate 25 mg every morning -Due to recurrent episodes of tachycardia with A-fib will increase metoprolol succinate to 50 mg twice a day. Code:Full code Dispo:Currently pending home health care for IV antibiotics. FEN/GI:Carb consistent DVT Prophylaxis:Eliquis Admission and Anticipated Discharge Date Admission Date: November 13, 2022 Subjective Patient seen bedside this morning. No issues or complaints at this time. Denies any chest pain, shortness of breath, or pain. Review of Systems Review of Systems: As per HPI Physical Exam Physical Exam: Constitutional: well appearing, no acute distress HEENT: normocephalic, no conjunctival injection CV: Irregularly irregular rate and rhythm, no murmur, no LE edema Respiratory: CTA bilaterally. No rhonchi, wheezes, or crackles. No increased work of breathing Right foot: Right foot wrapped with drainage in place Neuro: alert, oriented, no FND noted Psych: mood and affect congruent Results & Data Results & Data Vital Signs (Past 12 Hours) Vital Signs Temp Pulse Pulse Pulse Resp BP Pulse Ox 11/21/22 02:29 37.0 C 93 H 18 131/73 97 11/21/22 01:55 95 H 11/20/22 23:10 37.5 C 98 H 20 132/70 97 11/20/22 19:14 36.8 C 85 20 142/77 H 97 O2 Del Method 11/21/22 02:29 Room Air 11/21/22 01:55 11/20/22 23:10 Room Air 11/20/22 19:14 Room Air
[2022-11-21] MEDS: INSULIN ASPART PER UNIT CHARGE SC SCH ×2 (08:12→12:28)
[2022-11-21] MEDS: LANTUS PER UNIT CHARGE SQ SCH (08:13)
[2022-11-21] MEDS: APIXABAN 5 MG TABLET PO SCH (08:14)
[2022-11-21] MEDS: FLUTICASONE PROPIONATE NA SPR 16 GM BTL SCH (08:14)
[2022-11-21] MEDS: METOPROLOL SUCC 50MG EXT REL TAB PO SCH (08:14)
--- NOTE | 2022-11-21 16:26 | Discharge Summary ---
Date of Service November 21, 2022 Admission HPI Per Admitting Provider Andre is a 62-year-old man with a history of DM2, Charcot neuropathy (multiple diabetic foot infections, previous osteomyelitis), hypertension who presented to the emergency room for nonhealing injury to his right foot x10 days. [place] his lateral right foot. He went to the wound care center, where he goes for wound checks once weekly. Wound was cultured and dressed, and eventually returned positive for oxacillin- sensitive Staph aureus. He was started on Bactrim twice daily and, on presentation to the emergency room, had completed 4 days of the course. 2 days ago, however, he began to develop shaking chills and fever despite being on antibiotics and so decided to come in. Per , who is at bedside, peak temperature was 99.5 F, although he had taken a Tylenol before that measurement was obtained In the emergency room, vitals notable only for tachycardia to the 100s-110s. WBC was elevated at 11.91 with neutrophilic predominance, ESR was elevated at 98, more than 3 times his previous high. Sodium-128, creatinine-1.45 (b/l 0.9- 1.1), serum glucose of 234. COVID-19 and nasal MRSA swabs were negative. EKG showed sinus tachycardia with no ST segment abnormalities. CXR was negative for acute infectious process, per my read. Per my read, XR right foot showed possible degenerative changes of fifth metatarsal laterally. Was unable to caryl reciate soft tissue swelling. After blood cultures were drawn, he received an NS bolus x1 L, as well as a loading dose of IV vancomycin 1.5 g, plus an additional 0.75 g. He also received 2 g of IV cefepime and hospitalist was consulted for admission. On admission, he corroborates HPI as above. ROS + mild headache, nasal congestion, reduced appetite and p.o. intake. He denies nausea, vomiting, pain, sore throat, chest pain, shortness of breath, or pedal edema. Admission Exam Per Admitting Provider General: No acute distress HEENT: PERRLA. Normal conjunctiva, anicteric sclera. Oropharynx normal. Respiratory: Normal respiratory effort, CTABL. Cardiovascular: Tachycardic rate. Regular rhythm. No murmurs, gallops, or rubs. No pedal edema. GI: Soft abdomen with normal bowel sounds heard on auscultation. Nontender x4 quadrants Foot (right): Warm to the touch. 3 ulcers of right foot (healing medial plantar stage II ulcer measuring approximately 2.5 x 1.4 cm; lateral stage II/III ulcer approximately 2 cm in diameter with frankly expressed pus on palpation; healed, blackened surface ulcer on dorsal surface of fourth digit). Slight erythema adjacent to lateral ulcer Neuro: Alert and oriented x3. 5/5 strength bilaterally at hip, knee, and ankle. Principal Diagnosis diabetic foot ulcer Discharge Exam Constitutional: well appearing, no acute distress HEENT: normocephalic, no conjunctival injection CV: Irregularly irregular rate and rhythm, no murmur, no LE edema Respiratory: CTA bilaterally. No rhonchi, wheezes, or crackles. No increased work of breathing Right foot: Right foot wrapped with drainage in place Neuro: alert, oriented, no focal neurological deficits noted Psych: mood and affect congruent Discharge Data Allergies Allergy/AdvReac Type Severity Reaction Status Date / Time Penicillins Allergy Severe THROAT Verified 11/13/22 00:56 SWELLING WITH BLISTERS linezolid Allergy Unknown tongue Verified 11/13/22 00:56 swelling,ITCHY Consultations 11/13/22 00:24 ED Decision to Admit Stat 11/13/22 04:05 Consult Podiatry Routine 11/16/22 14:20 Consult Cardiology Routine Procedures Performed Operation Date: 11/14/22 09:10 Actual Procedures p Right Foot Incision and Drainage Non-viable Bone, Application of Wound Vac(Right) - ROSEMARY BanegasM, MS Ordered Studies Chest X-Ray 11/12/22 22:44 XR chest 1V portable CLINICAL HISTORY: Sepsis TECHNIQUE: Single frontal radiograph of the chest was obtained. Comparison: None available at the time of this dictation. FINDINGS: No lines and tubes are seen. The cardiomediastinal silhouette is normal. The sujata gs are clear. No evidence of pleural effusion or pneumothorax. IMPRESSION: No acute abnormalities and in particular no radiographic evidence of pneumonia. Foot X-Ray 11/12/22 23:29 XR foot RT min 3V routine CLINICAL HISTORY: r/o osteo TECHNIQUE: 3 views of the right foot were obtained. Comparison: Comparison is made to foot radiographs 08/05/2022 FINDINGS: Patient is status post mid metatarsal resection of the first digit. There is focal bony erosion at the base of the fifth metatarsal at the site of the ulcer. Reactive bone formation is noted. No lucency is seen at the site of the medial superior. Degenerative changes are seen. Diffuse soft tissue swelling is seen with medial and lateral mid foot ulcers. IMPRESSION: Osteomyelitis is seen underlying the lateral ulcer involving the base of the fifth metatarsal. Medial ulcer is without radiographic evidence of osteomyelitis. Foot MRI 11/13/22 03:01 MR foot RT w/o con CLINICAL HISTORY: r/o osteomyelitis TECHNIQUE: Multiplanar multisequence MR images of the right foot were obtained. Comparison: Comparison is made to right foot radiograph 11/12/2022 FINDINGS: Bony edema is seen in the fifth metatarsal compatible with osteomyelitis. Mild edema is also seen in the third metatarsal head and midshaft. No edema is seen in the first metatarsal. There is extensive soft tissue swelling compatible cellulitis. IMPRESSION: Findings compatible with 50 metatarsal base osteomyelitis with associated cellulitis and ulcer. No first digit osteomyelitis is seen. Mild edema in the third metatarsal may be reactive due to degenerative change or represent os teomyelitis as well. 11/20/22 05:38 11/20/22 05:38 Diabetes Follow up Diabetes Follow-up Needed for HgbA1c >9% Hospital Course (1) Diabetic peripheral neuropathy associated with type 2 diabetes mellitus: (2) Diabetic ulcer of right foot: (3) Acute hyponatremia: (4) Diabetes mellitus, type 2: (5) Essential hypertension: (6) Mixed hyperlipidemia: (7) SVT (supraventricular tachycardia): Plan 62 M with PMH of history of DM2 and associated Charcot neuropathy (s/p great toe amputation of right foot, multiple diabetic foot infections, previous osteomyelitis), AF, hyperlipidemia, hypertension, who presented to the ED for worsening ulcer of lateral right foot now s/p surgical removal and wound vac placement clinically stable for discharge home with a midline for IV abx access. Diabetic peripheral neuropathy/right foot ulcer Initial injury on 11/03, follows with wound care, wound culture MSSA.Refractory to Bactrim x4 days. Leukocytosis 11.91 on admission with elevated inflammatory markers - ESR 98 CRP 6.87. Foot XR showed osteo with associated cellulitis of the 5th metatarsal. Initially started on Zosyn. Patient had 5th metatarsal surgically removed 11/15 and a wound VAC was placed. Initially 1/2 cultures grew staph aures thus antibiotics were tailored towards MSSA. Upon further review of cultures it was actually 2/2 cultures that grew staph aureus with resistance to clindamycin, erythromycin, and tetracycline. ID was consulted for antibiotic management as there was question on need for MRSA coverage. Upon further review of cultures it was deemed that 4 weeks of IV antibiotics was appropriate prior to transitioning to oral medications. Midline access was obtained 11/21 and he was discharged home with cefazolin - 2 g Q8H. Home health and home wound care are set up - appreciate case management's assistance. Follow up with podiatry in 2 weeks. Diabetes type 2 diabetes Managed on Lantus 34 units daily, Jardiance 25 mg every morning, Mounjaro 2.5 mg SQ every Monday. A1c upon admission 9.1%, though patient recently started on Mounjaro.SSI while inpatient. Recommend f/u with PCP. Paroxysmal atrial fibrillation SVT-resolved History of cardioversion, unsure exact history but most likely due to SVT rather than atrial fibrillation.Was started on metop 25 mg QAM and anticoagulation. Patient stopped anticoagulation as he was not convinced he had a. fib. During hospital course patient was irregularly irregular with intermittent runs of sustained SVT. Cards increased metop to 50 mg BID and restarted Eliquis. He cardioverted to sinus and has remained there. ECHO 11/17: EF of 55-60%. Rec outpatient f/u. Hypertension Chronic; managed on metoprolol succinate 25 mg every morning. Due to recurrent episodes of tachycardia with A-fib will increase metoprolol succinate to 50 mg twice a day. Hyponatremia-resolved -128 upon admission; usual baseline 132-135. -Suspect infection, hyperglycemia, poor p.o. intake, as opposed to true hyponatremia. Expect sodium level to return to baseline as blood glucose is controlled. -Return to normal. Code:Full code Dispo:home with midline and IV abx FEN/GI:Carb consistent DVT Prophylaxis:Eliquis Total Time Total Time Spent Total Time Spent (In Minutes): see attending attestation Discharge Plan Discharge Items Patient Disposition: Home - Home Health Services Reason For Visit: DIABETIC ULCER OF RIGHT FOOT Discharge Diagnosis: Osteomyelitis of the right foot Activity: Per Instructions section Non-emergency contact: Primary Care Provider Call non-emergency contact if: you have any medication questions, your pain is unusual for you, your temperature is above 101.5, your wound has increased redness, your wound has increased drainage and your wound pain has increased Follow-up/Referrals: Cristofer Patel MD [Primary Care Provider] - Martin Jackson DPM, MS [Physician] - (2 week f/u ) Diet: Heart Healthy Addtl Attending Provider Instructions: You were admitted to the hospital for a wound on your foot. You were found to have an infection in the bone called "osteomyelitis". We treated you with surgical intervention, wound vac placement, and IV antibiotics. We placed a longer term line so that IV antibiotics can be continued on an outpatient basis. We will continue IV antibiotics for a total of 4 weeks of treatment. We will do cefazolin IV every 8 hours. Last dose will be in the evening of 12/18/22. A discharge summary will be sent to your primary care physician to ensure continuity of care. Please bring this discharge summary with you to your next office appointment so that your provider can review it at that time. Follow-up appointments: Make a follow-up appointment with your PCP within the next week. It is very important that you follow up with them shortly after discharge You have an appointment with podiatry in 2 weeks. If you do not hear from them in the next 3 business days calls Keep all your follow-up appointments as already scheduled. If you cannot make an appointment, notify your provider. Medications: Your medication list has been reviewed and reconciled upon discharge to ensure accuracy and continuity of care. An updated list of all your medications is included with your hospital discharge paperwork. Please review this list closely, and make note of any changes. We sent a new medication called Eliquis (apixaban) to your pharmacy. Take Eliquis 5 mg twice a day. Take this as close to 12 hours apart as possible. We sent a new medication called metoprolol to your pharmacy. Take metoprolol 50 mg twice a day. We sent a new medication called cefazolin to your pharmacy. Take 2,000 mg every 8 hours until last dose in the evening of 12/18/2022. If you have any issues filling these prescriptions, please call [phone] and ask to leave a message for Dr. Paules. Take your medications as instructed; do not skip a dose of your medicines. Make sure all of your doctors know every medicine you are taking (including nixr-bpj-qromrcp medicines, vitamins, and supplements). Call your primary care provider before taking any new medicines (including over- the- counter medicines, vitamins, and supplements), because some of these may interact with your current medications, or may make your symptoms worse. Tell your primary care provider if you cannot afford your medications. CONTACT YOUR PRIMARY CARE PROVIDER if you experience any of the following: Fevers, chills, foul odor, or discharge from the wound Redness, warmth, or discharge from the line site Lightheadedness, dizziness, or passing out Difficulty following your treatment plan, or difficulty taking medications CALL 911 OR GO TO THE EMERGENCY DEPARTMENT if you experience any of the following: Sudden, severe abdominal pain or nausea/vomiting Severe chest pain, or chest pain that radiates (moves) to your jaw or arm Sudden, severe shortness of breath or difficulty breathing Thank you for allowing us to participate in your care Pending Studies at Discharge: No Stand-Alone Forms: My [facility] [place], Smoking Cessation Medications and DC Order Prescriptions: New cefazolin 2 gram recon soln 2 g IV Q8H 22 Days Qty: 100 0RF Eliquis 5 mg Tablet 5 mg PO BID Qty: 60 0RF metoprolol succinate 50 mg Tablet Extended Release 24 Hr 50 mg PO BID Qty: 60 0RF Continued Jardiance 25 mg Tablet 25 mg PO QAM Basaglar KwikPen U-100 Insulin 100 unit/mL (3 mL) insulin pen 34 unit SUBCUT QAM acetaminophen [Tylenol Extra Strength] 500 mg Tablet 1,000 mg PO Q8 PRN (Reason: fever or pain) Qty: 30 0RF Mounjaro 5 mg/0.5 mL pen injector 5 mg SUBCUT .WEEKLY Rx Instructions: takes on Fridays Discontinued sulfamethoxazole-trimethoprim [Bactrim DS] 800-160 mg tablet 1 tab PO BID 14 Days Qty: 28 0RF metoprolol succinate 25 mg Tablet Extended Release 24 Hr 25 mg PO QAM Qty: 30 0RF Discharge Orders: Discharge Order (Routine); Ordered 11/21/22 Ordered By: Joann Rowe/Other Patient Handouts: Nutrition for Wound Healing, Managing Type 2 Diabetes Admission Data Admit Date/Time: 11/13/22 01:18 Attending Provider: Fredy Vegas Admit Provider: Emily Scott Primary Care Provider: Cristofer Patel Other Providers: Griffin Alfaro ; Martin Jackson ; Emelyn Griffin ; Jeet Tate ; Joshua Gonzalez ; Bean Mccauley ; Dakota Shepard ; Cristofer Fairbanks ; Meredith Bashir ; Paloma Lacy ; Emelyn Vivas ; Pelon Harrell ; Yola Patel ; [facility] Other Interventions: Discharge Summary Assessment (RN) Last Done: 11/21/22 16:30 Supervising Physician Co-Signing Physician Notes I personally examined the patient and verified all torres points of history and exam, discussed case, and agree with decision making with Dr Jean feeling good would like to go home comfortable w home Paul goldberg noted nad heent nc at mmm breathing unlabored no accessory muscle use good effort, wound team dressing his foot whenever I enter the room, wound VAC in place, no surrounding erythema. Diabetic foot infection/osteomyelitis with sepsis and Staph aureus bacteremia present on admissionsepsis treated and resolved, bacteremia improvingHome on Ancef for another 4 weeks. Outpatient follow-up, low threshold to repeat cultures shortly after antibiotics are complete. Uncontrolled type 2 diabetesas outlined whenever I saw him a little over a week ago, it sounds like he just recently made rather massive and quite positive lifestyle changes. I reemphasized to him the critical importance of lifestyle in the control of type 2 diabetes, and encouraged him to stay on his efforts. Readdressed that uncontrolled hyperglycemia leads to progressive microvascular ischemia, and encouraged him to check postprandial glucoses periodically to make sure he is not missing postprandial hyperglycemia from carbohydrates he did not realize he was eating. Safe/stable for home, otherwise as above Resident Activity Tracking Resident Involvement: Resident Care Provided Care Provided: Adult Hospital Medicine
--- NOTE | 2022-11-21 18:39 | Billing Data ---
Date of Service November 21, 2022 Coding Level of Care Code 52113 IN/OBS DISCH 30 MIN/LESS
== END 2022-11-21 16:59 | disposition home health service (06) | DRG 854 ==
LOC: ED 22:37 → SUATTDRO 11-13 01:18 → 3E 11-13 01:18 → 2S 11-14 00:11

== ENCOUNTER 2023-05-16 11:46 | Observation (INO) ==
--- NOTE | 2023-05-15 09:08 | Anesthesiology Consultation ---
Date of Service May 15, 2023 Assessment & Plan (1) Encounter for pre-operative examination: Chart Review Chart Review: Acceptable Risk for Surgery and Patient NOT seen in Pre Admission Testing Patient's last dose of Mounjaro was 05/12/23- will only be without medication x [address] Wilson- due to nature of procedure- patient can proceed as scheduled. Most likely will not be a good candidate for LMA. Did instruct patient to eat dinner no later than 5-6pm and to only have fluids after dinner. Patient educated on the risk of aspiration. Patient voices understanding. - Check BSG AM DOS Per cardio phone note 05/02/23= Take last dose of Eliquis in the evening 3 days prior to procedure. Therefore no Eliquis on day 2 days before procedure. No Eliquis on day before procedure. No Eliquis the day of procedure. As long as there are no bleeding complications, resume Eliquis today after procedure if okay with surgery. -Infectious Disease screening: Per PAT nursing assessment on 05/12/23. No known infectious disease contacts in past 10 days or current infectious disease symptoms. No recent travel outside the country. Patient seen by cardio in office 12/19/22= Patient seen for follow-up on paroxysmal atrial fibrillation. Patient recently hospitalized for recurrent diabetic foot wound of right foot with associated osteomyelitis. Currently on antibiotics. From atrial fibrillation standpoint, has been seen in the hospital with asymptomatic to minimally symptomatic episodes of paroxysmal atrial fibrillation and had reverted back to sinus rhythm spontaneously. Metoprolol was increased to 50 mg twice daily. Eliquis was reinitiated. Patient had repeat thoracic echocardiogram. Due to fatigue, reduce metoprolol succinate to 50 mg 1 time per day. Continue Eliquis. Follow-up in 6 months. Right big toe partial amputation 09/28/2021 = done under [facility] with LMA #5. Atraumatic, teeth intact. History Surgery Operation Date: 05/16/23 13:20 Proposed Procedures p Right Foot Amputation Transmetatarsal - Boris Mendosa MD Height/Weight Height: 5 ft 9 in Weight: 74.389 kg Allergies Allergy/AdvReac Type Severity Reaction Status Date / Time Penicillins Allergy Severe THROAT Verified 05/09/23 13:06 SWELLING WITH BLISTERS linezolid Allergy Unknown tongue Verified 05/09/23 13:06 swelling,ITCHY Medications Home Medications Medication Instructions Recorded Confirmed Last Taken empagliflozin 25 mg tablet 25 mg PO QAM 07/31/20 05/12/23 09/28/21 08:00 (Jardiance) acetaminophen 500 mg tablet 1,000 mg (2 x 500 mg) PO Q8 PRN 09/30/21 05/12/23 Unknown (Tylenol Extra Strength) fever or pain #30 tabs insulin glargine 100 unit/mL (3 34 unit subcut QAM 10/13/22 05/12/23 11/12/22 06:00 mL) subcutaneous pen (Basaglar KwikPen U-100 Insulin) tirzepatide 5 mg/0.5 mL 5 mg subcut .WEEKLY 11/18/22 05/12/23 Unknown subcutaneous pen injector (Vijayunjaro) apixaban 5 mg tablet (Eliquis) 5 mg PO BID #60 tabs 11/21/22 05/12/23 Unknown Past Medical History Medical History DM type 2 (diabetes mellitus, type 2) SVT (supraventricular tachycardia) Atrial fibrillation On Eliquis. Follows with Dr. Tate. Neuropathy RT LEG Hx of gout Acid reflux "MILD" Past Family History Family History Father Family history of diabetes mellitus Father Muscular dystrophy Other No family history of adverse response to anesthesia Past Surgical History Surgical History History of amputation of toe History of incision and drainage History of herniorrhaphy S/P foot surgery, right History of tonsillectomy and adenoidectomy H/O knee surgery RT/LEFT History of appendectomy [place] teeth removed History of nasal cauterization Social History Smoking Status: Never smoker tobacco type: smokeless tobacco Smoking cigarettes per day: ~1 can daily Do You Dip or Chew Tobacco: Yes Hx Alcohol Use: No Hx Substance Use: No substance use type: does not use Lab Results Anesthesia Preop Results Results Anesthesia Widget: Na 135 mmol/L (136-145) L 05/12/23 K 4.5 mmol/L (3.5-5.1) 05/12/23 Cl 101 mmol/L (98-107) 05/12/23 CO2 26 mmol/L (21-32) 05/12/23 BUN 26 mg/dl (6-23) H 05/12/23 Creat 1.27 mg/dl (0.6-1.4) 05/12/23 Glucose Level 193 mg/dl (70-99(Fasting)) H 05/12/23 Testing Laboratory Results 05/11/23= WBC: 7.8 H/H: 16.8/47.9 PLATELETS: 307 HGB A1C: 9.8 TSH: 7.240 Electrocardiogram Date: 12/19/22 Findings: + NSR @ (97bpm ) Normal EKG per cardio Chest X-Ray Date: 11/13/22 Findings: + NAD FINDINGS: No lines and tubes are seen. The cardiomediastinal silhouette is normal. The lungs are clear. No evidence of pleural effusion or pneumothorax. IMPRESSION: No acute abnormalities and in particular no radiographic evidence of pneumonia. Echocardiogram Date: 11/17/22 EF: 55-60% LV Function: normal RWMA: + none Other Findings: + diastolic dysfunction (Grade 1); no LVH Sinus rhythm was present during echocardiogram study Mild focal calcification of posterior mitral valve leaflet. Compared to the images obtained at the time of prior outpatient study performed 09/01/2014, focal calcification of mitral valve leaflet is not noted
[~2023-05-16 11:46] MED LIST changes: -ALLERGY Noted to ORDERED Medication SCH; +CLINDA 900 MG **Premixed Bag IV SCH; +LACTATED RINGER'S 1,000 ML IV SCH
[2023-05-16] MEDS ORDERED: LIDOCAINE 2% 2 ML VIAL/AMP(20MG/ML) INFIL ONE (12:49)
[2023-05-16] MEDS ORDERED: MIDAZOLAM HCL 1 MG/ML 2ML VIAL ONE (12:49)
[2023-05-16] MEDS ORDERED: ONDANSETRON INJ 2 MG/ML 2 ML VIAL ONE (12:49)
[2023-05-16] MEDS ORDERED: fentaNYL citrate PF 100 MCG/2 ML VIAL ONE (12:49)
[2023-05-16] MEDS ORDERED: PROPOFOL IV EMULSION 10 MG/ML 20 ML VIAL IV ONE (12:49)
[2023-05-16] MEDS ORDERED: ONDANSETRON INJ 2 MG/ML 2 ML VIAL IV PRN ×2 (13:07→18:20)
[2023-05-16] MEDS ORDERED: HYDROmorphone INJ 2 MG/ML SYR/VIAL IV PRN (13:07)
[2023-05-16] MEDS ORDERED: fentaNYL citrate PF 100 MCG/2 ML VIAL IV PRN (13:07)
[2023-05-16] MEDS ORDERED: PROMETHAZINE HCL 12.5 MG in SODIUM CHLORIDE 0.9% 50 ML IV PRN (13:07)
[2023-05-16] MEDS ORDERED: ATROPINE SULFATE 0.1 MG/ML 10ML SYR IV PRN (13:07)
[2023-05-16] MEDS ORDERED: ePHEDrine sulfate 50 MG/ML AMP IV PRN (13:07)
--- NOTE | 2023-05-16 13:42 | History & Physical Bridge Note ---
Date of Service May 16, 2023 History & Physical Bridge Note I have examined the patient, reviewed the History & Physical and in the interval since the performance of the History & Physical I have noted the following changes of clinical significance: no changes noted
[2023-05-16] MEDS ORDERED: LIDOCAINE 1% LOCAL 20 ML VIAL ONE (14:16)
[2023-05-16] MEDS ORDERED: BUPIVACAINE/EPINEPHRINE 0.5% MPF 1:200,000 30 ML VIAL ONE (14:16)
[2023-05-16] MEDS ORDERED: ROCURONIUM BROMIDE 10 MG/ML 5 ML VIAL IV ONE (14:29)
[2023-05-16] MEDS ORDERED: PHENYLEPHRINE 100MCG/ML 10ML SYR IV ONE (15:01)
[2023-05-16] MEDS ORDERED: ePHEDrine sulfate 50 MG/5 ML SYR ONE (15:01)
[2023-05-16] MEDS ORDERED: SUGAMMADEX SODIUM 200 MG/2 ML VIAL IV ONE (15:14)
[2023-05-16] MEDS ORDERED: diphenhydrAMINE 50 MG/ML VIAL ONE (15:14)
[2023-05-16] MEDS ORDERED: TRANEXAMIC ACID / 0.7% NACL 1000MG/100ML BAG IV ONE (15:41)
--- NOTE | 2023-05-16 16:14 | Operative Report ---
Post Operative Report Pre & Post Diagnosis Operation Date: 05/16/23 13:20 Pre-Op Diagnosis: Osteomyelitis 2nd Metatarsal Foot Right Post-Op Diagnosis: Osteomyelitis 2nd Metatarsal Foot Right I identified the patient and participated in the time-out.: Yes Procedure Operation Date: 05/16/23 13:20 Actual Procedures p Right Foot Transmetatarsal Amputation(Right) - Boris Mendosa MD Surgeon Boris Mendosa MD Bucket Wash Operator Iris Mustafa physicians spa assistant manager no resident or fellow available Estimated Blood Loss 20 Findings Consistent with Post-Op Diagnosis Specimens Second metatarsal head bone for culture, diabetic ulcer. Residual forefoot. The the medial toe of the right foot is the second toe. Evaluate second metatarsal head for osteomyelitis. Anesthesia Type General Regional Complications none Disposition Accompanied Patient To Recovery: No Disposition: Recovery Room Indications Oniel is 63. Diabetic. Poorly controlled. Past history of having osteomyelitis of the first metatarsal which required a partial first ray resection. Recent history of having osteomyelitis of the fifth metatarsal base which required resection of the proximal fifth metatarsal. He now has developed an ulceration on the plantar aspect of his forefoot underneath the second metatarsal head. He has had some Charcot changes of the second metatarsal phalangeal joint with a chronic dorsal dislocation. The wound has been refractory to offloading on nonsurgical management. His Silfverskiold test is negative. The metatarsal head is readily palpable within the wound. X-rays are negative osteomyelitis however the MRI is positive. We talked about his options which would include resection of part of the second ray leaving him essentially with only the third and fourth metatarsals as a weightbearing area. I think that there is a high likelihood that this could result in further pressure ulcerations due to the narrowed weightbearing area of the forefoot. I recommended that he consider a partial forefoot amputation such as a transmetatarsal amputation and he has agreed to proceed. Description of Procedure Informed consent. Patient identified. He identified the right foot as the operative site. I marked with my initials. A preoperative surgical timeout was performed. A preop dose of antibiotics was given. He was taken to the operating room positioned supine on the OR table with a bump under the right hip and a tourniquet on the right calf several fingerbreadths below the fibular neck. The leg was prescrubbed with Betadine and then prepped with Betadine paint. DVT prophylaxis with foot pumps intraoperatively. Postop early mobility and resumption of his Eliquis. He stopped his Eliquis 4 doses prior to surgery. The examination under anesthesia revealed a 1 cm ulceration beneath the second metatarsal head which communicated directly to palpable bone. Silfverskiold's test was negative he can dorsiflex about 5 to 10 degrees past neutral both with the knee flexed and extended. The procedure began by exsanguinating the limb with the Esmarch beginning at the midfoot level and proceeding proximally. Tourniquet plated 250 mmHg. I excised the hypertrophic granulation tissue on the plantar ulcer and after debriding the flimsy granulation tissue the metatarsal head was readily exposed. Likely the reason why there was profuse drainage was that the joint capsule was eroded and this was joint fluid leaking out through the wound. I then inserted my knife into the sec metatarsal head it was not eroded but it was very soft. I then mapped out a transmetatarsal amputation incorporating the previous medial and lateral incisions. This coursed distally just at the level of the metatarsal phalangeal joints plantarly and dorsally. The skin was incised and using combination of electrocautery and scalpel I skeletonized the dorsal aspect of the metatarsals. I exposed plantarly down to the level of metatarsal phalangeal joints. I identified the base of the first metatarsal and remove the small bone spur associated with it which was dorsal and medial. I then used fluoroscopy to assess the level for the amputation of the rest of the metatarsals which were done at the level of the first metatarsal for this second metatarsal and then gradual shortening thereafter. The resected level of the fifth metatarsal was identified and it was reflected distally with remaining metatarsals. I dissected directly underneath the metatarsal bones plantarly and connected this out to my distal incision. This was then sent for specimen after removing some second metatarsal bone plantarly for osteomyelitis biopsy and culture. Routine C&S. Specifically asked for evaluation of the second metatarsal head for osteomyelitis pathology evaluation.No abscess was encountered. The remaining tissue was healthy. I then went ahead and fashioned dorsal and plantar flaps. I ellipsed out the ulcer plantarly by curving the skin incision just proximal to it. I had enough dorsal skin to bring down on top of that without any problem. I then preferentially brought up the plantar skin and trimmed off the dorsal flap in order to affect the closure without excessive redundancy. The tourniquet was let down and meticulous hemostasis was performed with electrocautery and pressure. Once bleeding had been controlled the flexor and extensor tendons were drawn into the wound and amputated as far proximal as possible. Copious irrigation was performed and the skin was closed in a tension-free fashion using 3-0 nylon. Near far far near stitches simple stitches and horizontal mattresses. The leg was cleaned with wet and dry sponges and soft sterile dressing was applied Xeroform 4 x 4's ABD soft wrap Inocencio wrap postop shoe. Patient awakened from anesthesia without difficulty and taken to the recovery room in stable condition. The resected forefoot was sent for specimen as well as culture. He can partial weight-bear on his hindfoot. He will be admitted to the hospital for IV antibiotics and wound monitoring. Eliquis can resume the morning after surgery. The metatarsals were beveled from dorsal distal to plantar proximal. They were then debrided with a rongeur to remove any sharp edges. Local anesthetic was then injected into the skin and subcutaneous tissues at the conclusion of the procedure. I attest to the content of the Intraoperative Record and any orders documented therein. Any exceptions are noted below.
--- NOTE | 2023-05-16 16:20 | Operative Report ---
Post Operative Report Pre & Post Diagnosis Operation Date: 05/16/23 13:20 Pre-Op Diagnosis: Osteomyelitis 2nd Metatarsal Foot Right Post-Op Diagnosis: Osteomyelitis 2nd Metatarsal Foot Right I identified the patient and participated in the time-out.: Yes Procedure Operation Date: 05/16/23 13:20 Actual Procedures p Right Foot Transmetatarsal Amputation(Right) - Boris Mendosa MD Surgeon Boris Mendosa M.D. Creeler Iris Mustafa physicians certified surgical tech/first assistant no resident or fellow available Estimated Blood Loss 20 Findings Consistent with Post-Op Diagnosis findings suggestive of osteo 2nd MT head diabetic ulcer Specimens diabetic ulcer right forefoot intra-op cultures of 2nd MT head Anesthesia Type General Description of Procedure Patient was taken to the operating room, placed under general anesthesia. Time out performed, prepped and draped in routine sterile fashion. I was present during the entire case, please see Dr. Mendosa's operative report for further detail. Patient was awakened and taken to the recovery room in stable condition. I attest to the content of the Intraoperative Record and any orders documented therein. Any exceptions are noted below.
--- NOTE | 2023-05-16 16:45 | Fluoroscopy Report ---
FL foot RT 2V CLINICAL HISTORY: RIGHT FOOT TRANSMETATARSAL AMPUTATION COMPARISON STUDY: Right foot 04/24/2023. FLUOROSCOPY TIME: 3 seconds. FLUOROSCOPY IMAGES: 3 Ka,r: 0.04 mGy FINDINGS: Transmetatarsal amputation within the right foot. IMPRESSION: Fluoroscopic assistance as above. ACT 112: Negative or not required by law. Electronically signed by: Deangelo Jackson M.D. 05/16/2023 4:44 PM
--- NOTE | 2023-05-16 18:16 | Anesthesiology Progress Note ---
Date of Service May 16, 2023 Anesthesia Post Procedure Vital Signs Vital Signs: Temp Pulse Resp BP Pulse Ox O2 Del Method O2 Flow Rate 05/16/23 18:00 87 16 110/56 L 95 Room Air 05/16/23 17:30 87 14 108/56 L 97 Room Air 05/16/23 17:00 93 H 16 107/64 99 Room Air 05/16/23 16:50 36.7 C 90 15 96/56 L 99 Room Air 05/16/23 16:40 92 H 12 102/59 L 99 Oxymask 5 05/16/23 16:30 92 H 17 102/60 99 Oxymask 5 05/16/23 16:20 36.1 C L 93 H 17 117/58 L 98 Oxymask 5 05/16/23 11:55 36.6 C 91 H 18 130/70 98 Room Air Transfer of Care Handoff Completed per policy Notes Mental Status: alert / awake / arousable Patient Amnestic to Procedure: Yes Nausea / Vomiting: adequately controlled Pain: adequately controlled Airway Patency, RR, SpO2: stable & adequate BP & HR: stable & adequate Hydration State: stable & adequate Anesthetic Complications: no major complications apparent
[2023-05-16] MEDS ORDERED: traMADol HCL 50 MG TABLET PO PRN (18:20)
[2023-05-16] MEDS ORDERED: HYDROmorphone INJ 0.5 MG/0.5 ML SYR IV PRN (18:20)
[2023-05-16] MEDS ORDERED: MAGNESIUM HYDROXIDE SUSP 30 ML UDC PO PRN (18:20)
[2023-05-16] MEDS ORDERED: METOCLOPRAMIDE HCL INJ 5 MG/ML 2 ML VIAL IV PRN (18:20)
[2023-05-16] MEDS ORDERED: PHARMACY GLYCEMIC MGMT CONSULT PRN (18:20)
[2023-05-16] MEDS ORDERED: HYDROmorphone INJ 1 MG/ML SYRINGE IV PRN (18:20)
[2023-05-16] MEDS ORDERED: oxyCODONE HCL IR 5 MG TAB (IMMEDIATE RELEASE) PO PRN (18:20)
[2023-05-16] MEDS ORDERED: NALOXONE HCL 0.4 MG/1 ML VIAL/CARP IV PRN (18:20)
[2023-05-16] MEDS ORDERED: bisacodyL 10 MG SUPP PR PRN (18:20)
[2023-05-16] MEDS ORDERED: DEXTROSE 50% 50 ML SYRINGE IV PRN (19:00)
[2023-05-16] MEDS ORDERED: GLUCOSE 40% GEL 15 GM TUBE PO PRN (19:00)
[2023-05-16] MEDS ORDERED: CARBOHYDRATES FOR HYPOGLYCEMIA PO PRN (19:00)
[2023-05-16] MEDS ORDERED: GLUCAGON FOR INJ 1 MG VIAL IM PRN (19:00)
[2023-05-16] MEDS ORDERED: LANTUS PER UNIT CHARGE SC ONE (19:00)
[2023-05-16] MEDS ORDERED: GLUCOSE 10 TAB/TUBE PO PRN (19:00)
[2023-05-16] MEDS: SODIUM CHLORIDE 0.9% 1,000 ML IV SCH (19:32)
[2023-05-16] MEDS: INSULIN ASPART PER UNIT CHARGE SC SCH ×2 (19:34→23:22)
[2023-05-16] MEDS: DOCUSATE SODIUM 100 MG CAP PO SCH (20:32)
[2023-05-16] MEDS ORDERED: SENNA 8.6 MG TAB PO SCH (21:00)
--- OUTSIDE RECORDS SUMMARY | 2023-05-16 21:13 | External Medical Summary | Continuity of Care Document ---
Author Name Unknown Organization [facility] [id number] [id number] Address [address] [place] [id number] Care Team Providers Care Insurance And Benefits Clerk Name Role Phone Cristofer Patel Primary Care Physician [phone] [id number] Date(s): 05/12/23 - 05/12/23 [facility] [address] [id number] [facility] [address] [place] [id number] Encounter Diagnosis Diabetic foot ulcer(Discharge Diagnosis) - 05/12/23 Discharge Disposition: Home or Self Care Attending Physician: ROCHELLE Sanchez, Pierre Pacheco Referring Physician: MD Navya, Boris Lopes Allergies, Adverse Reactions, Alerts Substance Reaction Severity Status vancomycin Cough Itching Active penicillins edema airway Active linezolid Blister Tongue swelling Active Medications Basaglar KwikPen 100 units/mL subcutaneous solution Start: 09/15/21 16:03:00 EDT Start Date: 09/15/21 Status: Ordered Eliquis 5 mg oral tablet Start: 09/15/21 16:02:00 EDT, 1 tab, PO, bid Start Date: 09/15/21 Status: Ordered Jardiance 25 mg oral tablet Start: 09/15/21 16:03:00 EDT Start Date: 09/15/21 Status: Ordered Mounjaro 5 mg/0.5 mL subcutaneous solution Start: 04/24/23 11:26:00 EST Start Date: 04/24/23 Status: Ordered Mental Status 05/12/23 Barriers to Learning one year None evide nt Mandatory Health Literacy Documentation Yes Health Literacy Communication Barriers N ever Primary Language Chinese Problem List Condition Confirmation Course Effective Dates Status H ealth Status Informant Arthritis Confirmed Active Afib Confirmed Active Charcot's arthropathy Confirmed Active Diabetes Confirmed Active Diabetic foot ulcer Confirmed Active Loss of hearing Confirmed Active Status post amputation of great toe Confirmed Active Knee pain Confirmed Active Osteomyelitis of toe Confirmed Active Sinus tachycardia Confirmed Active Skin sore Confirmed Active Tobacco user Confirmed Active Weight disorder Confirmed Active Diagnosis Diagnosis Type Effective Dates Health Status Cl inical Service Informant Diabetic foot ulcer Discharge Diagnosis 05/12/23 Procedures Procedure Date Related Diagnosis Body Site Status Amputation of right great toe 09/28/21 Completed Knee 1 Completed 1left and right Social History Social History Type Response Smoking Status Never smoked cigaret perri Sex Male Pre-OP H & P * ROCHELLE Sanchez Cory D: PERFORM, MODIFY Event Display: Pre-OP H & P Authored Date: [id number] PRE-OPERATIVE HISTORY AND PHYSICAL Name: AGUILAR URIBE Patient Number: [id number] : 1960 Date of Service: 05/12/2023 PRE-OP Diagnosis: Right foot ulcer with osteomyelitis of the second metatarsal Planned Procedure: Right foot transmetatarsal amputation, possible Achilles tendon lengthening Chief Complaint: Right foot infection and ulceration History of Present Illness (including history relevant to procedure): This 63-year-old male presents today with his , for his preoperative history and physical. He is scheduled to undergo a rightfoot transmetatarsal amputation and possible Achilles tendon lengthening on 05/16/2023. The patienthas a longstanding history of diabetes. He has been a diabetic for 15 years. He states his A1c levels fluctuate between 9 and 12. He has never been below 9. His latest value is 9.8. He states his average glucose is around 150. He has had recurring foot blisters and ulcerations since earlier this year. He was found to have osteomyelitis of the metatarsals in November and January. He has tried previous toe amputations as well as debridements, cam boot use, specialized shoes and inserts, as well as antibiotics without resolution. He elects to proceed with surgical intervention in hopes of preventing sepsis and improving his infection. Preoperative imaging has been obtained. Review Of Systems: A total of 10 systems were reviewed and are significant for below stated conditions Family history: Significant for diabetes and heart disease. Social history: The patient is . Unemployed. Spit tobacco use, no EtOH use. Past Medical History: Problems: Diabetic foot ulcer Charcot's arthropathy Status post amputation of great toe Diabetes Loss of hearing Arthritis Afib Osteomyelitis of toe Knee pain Sinus tachycardia Tobacco user Weight disorder Procedure History Procedure Procedure Date Comments Knee - left and right Amputation of right great toe Right foot surgery 09/28/2021 Allergies and Sensitivities: penicillins(edema airway/blisters) linezolid(Tongue swelling) linezolid(Blister) vancomycin(Itching) vancomycin(Cough) Current Home Meds: (Last Updated 05/12 13:09) apixaban (Eliquis 5 mg oral tablet) 5 mg PO bid empagliflozin (Jardiance 25 mg oral tablet) insulin glargine (Basaglar KwikPen 100 units/mL subcutaneous solution) tirzepatide (Mounjaro 5 mg/0.5 mL subcutaneous solution) No Vital Signs Data Available Initial Wt: No Data Available Physical Exam: (relevant to the procedure, including heart and lung evaluation) General: Well-developed, well-nourished, middle-aged male, in no acute distress. Sitting on the bed. Alert and oriented. HEENT: Normocephalic, atraumatic. Eyes PERRLA, EOMI. Nares patent bilaterally without nasal drainage. Oropharynx without erythema. Oral mucosa moist. Fair dentition. Neck: No JVD. Cardiac: RRR. No MGR. Peripheral pulses are 2+. Lungs: Clear to auscultation bilaterally. No crackles, rhonchi, or wheezing. Good air movement. Abdomen: Bowel sounds present x 4. Soft nontender. No organomegaly. No masses. Extremities: Right foot evaluation reveals he is missing his great toe. He has ulcerations present on the plantar surface. There is limited dorsiflexion. Full plantarflexion. Motor function of the remaining toes is intact. He has no significant pain with palpation of the foot. He does have peripheral neuropathy, altering his sensation. Neuro: Gross sensation is intact across the right thigh, knee, and lower leg. He has a decreasing sensation peripherally due to known neuropathy. Skin: Warm and dry with good turgor. No rashes. Ulcerations are present on the plantar surface of his right foot. No visible edema. Studies of Lab Results (relevant to the procedure): [facility] shows previous amputations as well as suspected osteomyelitis of the midfoot. ASSESSMENT: Right foot ulceration with osteomyelitis of the second metatarsal Plan: Approximately 20 minutes was spent with the patient and his reviewing operative procedure, postoperative recovery, physical therapy requirements, and medication use. Surgery will be done on the 23-hour observation status. PDMP was checked and there are no concerning findings. He is currently asymptomatic of any COVID-19 symptoms. He already took his Mounjaro this morning. He is not due till next week. He will hold his Eliquis with last dose on Monday evening. Informed written consent to proceed with surgery was obtained by Dr. Mendosa. He already has crutches and a walker. He will bring these to the hospital. If he requires a cam boot, he will need a new one. Postoperative follow-up appointment has been made for 05/[address] Mendosa. Due to his antibiotic sensitivities, we will use clindamycin preoperatively. He denies any known allergy to it. This dictation has been completed using [employer] text voice recognition software. Grammatical errors, omissions, insertions, and misspellings may be present due to the limitations of the software. Electronic Signature on File Electronically Reviewed/Signed by: Pierre Sanchez PA-C Author Signature Dt/Tm:05/12/2023 03:22 PM Division of Sports Medicine Electronically Reviewed/Signed by: Boris Mendosa MD Cosigner Signature Dt/Tm: 05/12/2023 03:36 PM Division of Sports Medicine CDS Ortho Outpt Note * Martine Liz: PERFORM, MODIFY, MODIFY, MODIFY MD Navya, Boris Lopes: MODIFY Event Display: Ortho Outpt Note Authored Date: [id number] Name:AGUILAR URIBE Patient Number:[id number] :1960 Date of Service:05/12/2023 CHIEF COMPLAINT: Surgical consent for Transmetatarsal amputation of right foot HPI: [id number] Joann presents today forsurgical consent of Transmetatarsal amputation of right foot. Patient has [id number] and Osteomyelitis of the second metatarsal. He will discontinue taking his Eliquis on 05/13/2023 for his surgery on 05/16/2023. The patient had aright big toe amputation, DOS 09/28/21. PHYSICAL EXAM: Focusing on the patient'srightlower extremity: 1+DP and1+PT pulses Motor function5/5 ankle and toeplantarflexion and dorsiflexion, ankle eversion and inversion plantar wound underneath second metatarsal head Negative Silfverskild test IMPRESSION: 1) Osteomyelitis of the second metatarsal 2) Type 2 diabetes mellitus PLAN: Reviewed alternative treatments and surgical risks and benefits. Procedure and rehabilitation were discussed including the possibility I will need to address the Achilles upon surgery though not explicitly indicated on exam today Surgical consent signed for Transmetatarsal amputation of right foot with possible Achilles tendon lengthening. H&P completed after appointment today Follow-up as scheduled for surgery and post-operative appointments He has appropriate medial and lateral incisions fortransmet amputation. We discussed the optionof simply removing thedistal portion of the second ray. Howeverthe proximal portion of the fifth ray has already been removed because of infectionand I would essentially leave him the third and fourth rays as the distal weightbearing area. This would be a fairly narrow and deformed forefoo t. I think a more suitable option would be the transmetatarsal amputation given that portions of2 of the metatarsals of already been removed. He is in agreements. ATTESTATION: I, Liz Farley, scribing for and in the presence of, Boris Mendosa, on this date,3:11:19. Electronic Signature on File Electronically Reviewed/Signed by: Liz Farley Author Signature Dt/Tm:05/12/2023 01:22 PM Electronically Reviewed/Signed by: Liz Farley Cosigner Signature Dt/Tm: 05/12/2023 01:23 PM Electronically Reviewed/Signed by: Boris Mendosa MD Cosigner Signature Dt/Tm: 05/12/2023 04:15 PM Division of Sports Medicine [place] Patient Care team information Care Team Personnel Name: MD Patel Mark Russell Position: Referring Member Role: Primary Care Provider Address: Address: [address] [address] Care Team Related Persons Name: ARAMIS URIBE Address: [address] [place] [phone]
[2023-05-16] MEDS: CLINDAMYCIN/D5W 600 MG/50 ML BAG IV SCH (22:08)
[2023-05-16] MEDS: ACETAMINOPHEN 500 MG TAB PO SCH (22:08)
[2023-05-17] MEDS: CLINDAMYCIN/D5W 600 MG/50 ML BAG IV SCH (05:10)
[2023-05-17] MEDS: ACETAMINOPHEN 500 MG TAB PO SCH (05:10)
[2023-05-17] MEDS: SODIUM CHLORIDE 0.9% 1,000 ML IV SCH (05:20)
[2023-05-17 07:12] LABS: Hematocrit (blood only) 38.2 % (42.0-52.0); Hemoglobin 13.1 g/dl (14.0-18.0); Mean Corpuscular Hemoglobin 27.6 pg (25.0-34.0); Mean Corpuscular Hgb Conc 34.3 g/dL (32.0-36.0); Mean Corpuscular Volume 80.4 fL (80.0-100.0); Mean Platelet Volume 10.3 fL (9.4-12.4); Platelet Count 230 K/uL (130-400); RDW Coefficient of Variation 13.4 % (11.5-14.5); RDW Standard Deviation 39.4 fL (36.4-46.3); Red Blood Count 4.75 M/uL (4.70-6.10); White Blood Count 10.29 K/ul (4.8-10.8)
[2023-05-17 07:30] LABS: BUN Creatinine Ratio 19.4 (10-20); Creatinine Clr Calc Pharmacy 77.2 ml/min; Est GFR (African American) 94.7 ml/min; Est GFR (Non-African American) 81.7 ml/min
[2023-05-17] MEDS: INSULIN ASPART PER UNIT CHARGE SC SCH (08:27)
--- NOTE | 2023-05-17 08:41 | Pharmacy Report ---
Pharmacy Glycemic Short Note 2 - Date of Service May 17, 2023 - Glycemic Short BSG Results (Last 24 hours): 05/16/23 05/16/23 05/16/23 12:07 16:29 18:27 Glucose POC Glucose 174 H 120 H 119 H 05/16/23 05/17/23 05/17/23 22:00 06:34 07:59 Glucose 129 H POC Glucose 151 H 196 H OUTPATIENT ANTIDIABETIC REGIMEN: * Basaglar 34 units SC daily * Jardiance 10 mg PO daily * Mounjaro 5 mg SC weekly (Fridays) HbA1c: 9.1% (11/13/22) ASSESSMENT: * RY is a 63 year old male POD #1 s/p right foot transmetatarsal amputation (no steroids given in OR) * Preop BSG of 174 mg/dL, postop BSG of 120 mg/dL * Ordered ~25% reduction in basal last evening postoperatively in light of BSG at time and NPO for majority of day * Fasting BSG elevated this morning at 196 mg/dL - will give basal w/ lunch today and then plan on qAM starting on 05/18 PLAN FOR INPATIENT GLYCEMIC CONTROL: * Hold outpatient oral diabetes medications * Basal insulin * Lantus tbd * Bolus insulin * NovoLog per scale ACHS or Q6hrs while NPO * Goal Range: Low 110 mg/dL - High 140 mg/dL * Correction Factor: 20 mg/dL/unit * Nutritional / Prandial insulin per carb ratio of 1 unit per 7 grams CHO consumed
[2023-05-17] MEDS ORDERED: MULTIVITAMIN TAB PO SCH (09:00)
[2023-05-17] MEDS ORDERED: APIXABAN 5 MG TABLET PO SCH (09:00)
[2023-05-17] MEDS: DOCUSATE SODIUM 100 MG CAP PO SCH (09:33)
--- NOTE | 2023-05-17 10:39 | Orthopedic Progress Note ---
Date of Service May 17, 2023 Assessment & Plan (1) Status post transmetatarsal amputation of right foot: Plan: Postoperative day 1-transmetatarsal amputation right foot May be out of bed, weight-bear as tolerated on the right heel with the postop shoe in place and assistance of a walker. Regular diet as ordered. Eliquis 5 mg p.o. twice daily resumed this morning. IV antibiotics, clindamycin has been continued since surgery. PT and OT ordered. May be out of bed as tolerated with assistance. Plans for discharge to his home if safe in physical therapy and Occupational Therapy. Will send him home with a short course of oral antibiotics. Discharge instructions were reviewed. Postoperative appointments have been scheduled. He understands and agrees with the plan. Will discuss findings with Dr. Mendosa. Admission and Anticipated Discharge Date Admission Date: May 16, 2023 Barry Perera is sitting up in in a chair. He has been doing well. No complaints of pain in his right foot. He states he has not needed any pain medication. His Eliquis was resumed this morning. He is tolerating a regular diet. He is up and out of bed using a walker. Denies any postoperative nausea, vomiting, chest pains or shortness of breath. Review of Systems Review of Systems: as per HPI Physical Exam Musculoskeletal: Right foot dressings are clean, dry and intact. Postoperative shoe was in place. Posterior tibial pulses 1+. Sensation is diminished with palpation as normal. He has normal active range of motion of the right ankle. Strength is 5/5. No calf discomfort. No edema. Postoperative dressings were left in place. Results & Data Vital Signs (Past 12 Hours) Vital Signs Temp Pulse Resp BP Pulse Ox O2 Del Method 05/17/23 07:56 36.8 C 97 H 18 150/80 H 98 Room Air 05/17/23 02:00 36.6 C 90 18 127/80 97 Room Air 05/16/23 22:41 36.6 C 88 18 140/78 99 Room Air Laboratory Results 05/17/23 05/17/23 05/16/23 Range/Units 07:59 06:34 22:00 WBC 10.29 (4.8-10.8) K/ul RBC 4.75 (4.70-6.10) M/uL Hgb 13.1 L (14.0-18.0) g/dl Hct 38.2 L (42.0-52.0) % MCV 80.4 (80.0-100.0) fL MCH 27.6 (25.0-34.0) pg MCHC 34.3 (32.0-36.0) g/dL RDW Std Deviation 39.4 (36.4-46.3) fL RDW Coeff of Adriana 13.4 (11.5-14.5) % Plt Count 230 (130-400) K/uL MPV 10.3 (9.4-12.4) fL Sodium 137 (136-145) mmol/L Potassium 4.0 (3.5-5.1) mmol/L Chloride 106 (98-107) mmol/L Carbon Dioxide 26 (21-32) mmol/L Anion Gap 5 (3-11) BUN 19 (6-23) mg/dl Creatinine 0.98 (0.6-1.4) mg/dl Est Cr Clr Drug Dosing 77.2 ml/min Est GFR ( Amer) 94.7 ml/min Est GFR (Non-Af Amer) 81.7 ml/min BUN/Creatinine Ratio 19.4 (10-20) Glucose 129 H (70-99(Fasting)) mg/dl POC Glucose 196 H 151 H (70-99) mg/dl Calcium 9.0 (8.6-10.3) mg/dl 05/16/23 05/16/23 05/16/23 Range/Units 18:27 16:29 12:07 WBC (4.8-10.8) K/ul RBC (4.70-6.10) M/uL Hgb (14.0-18.0) g/dl Hct (42.0-52.0) % MCV (80.0-100.0) fL MCH (25.0-34.0) pg MCHC (32.0-36.0) g/dL RDW Std Deviation (36.4-46.3) fL RDW Coeff of Adriana (11.5-14.5) % Plt Count (130-400) K/uL MPV (9.4-12.4) fL Sodium (136-145) mmol/L Potassium (3.5-5.1) mmol/L Chloride (98-107) mmol/L Carbon Dioxide (21-32) mmol/L Anion Gap (3-11) BUN (6-23) mg/dl Creatinine (0.6-1.4) mg/dl Est Cr Clr Drug Dosing ml/min Est GFR ( Amer) ml/min Est GFR (Non-Af Amer) ml/min BUN/Creatinine Ratio (10-20) Glucose (70-99(Fasting)) mg/dl POC Glucose 119 H 120 H 174 H (70-99) mg/dl Calcium (8.6-10.3) mg/dl Microbiology 05/16/23 15:50 Gram Stain - Final Foot,Right No organisms seen. Currently pending.
--- NOTE | 2023-05-17 11:11 | Discharge Summary ---
Date of Service May 17, 2023 Discharge Data Procedures Performed Operation Date: 05/16/23 13:20 Actual Procedures p Right Foot Transmetatarsal Amputation(Right) - Boris Mendosa MD Hospital Course (1) Status post transmetatarsal amputation of right foot: Patient was kept in observation at [facility] after undergoing an elective right transmetatarsal amputation with Dr. Mendosa on May 16, 2023. He tolerated his procedure well with general anesthesia. He was given 900 mg of IV clindamycin which was continued after surgery. He tolerated the procedure well without any intraoperative complications. Postoperatively he was allowed out of bed, partial weightbearing to weight-bear as tolerated on the right heel with a postop shoe in place. He also needs to use a walker or crutches to assist with ambulation at all times. Glycemic control consult was placed for management of his diabetes during an inpatient. His other home medications were continued and Eliquis was resumed on POD 1. He was allowed out of bed as tolerated with assistance. She was seen and evaluated by physical therapy and Occupational Therapy on postoperative day 1. His pain was well- controlled during his inpatient stay. He did not develop any postoperative nausea, vomiting, chest pains or shortness of breath. His pain was well- controlled with oral Tylenol postoperatively. His vital signs remained stable with some slight elevations of blood pressure. His postoperative laboratory work was also within normal limits. On postoperative day 1 he was safe in physical therapy and Occupational Therapy and stable from surgery and was deemed safe for discharge to his home. He was discharged to his home in stable condition on May 17, 2023. Discharge instructions were provided. He was sent home with p.o. he understands and agrees with plan. All questions were answered. He was given p.o. Bactrim to take for a week after discharge.
== END 2023-05-17 11:59 | disposition home or self-care (01) ==
LOC: PACUINP 11:46 → ASU 11:46 → 3N 19:01